=== PATIENT | female | born 1980 | race Caucasian/White ===

== ENCOUNTER 2023-01-25 10:52 | Outpatient (OUT) | payer MEDICARE, MEDICAID, SELFPAY ==
[2023-01-25 11:29] LABS: Basophils Percent Auto 0.4 % (0.2-2.0); Eosinophils Absolute Auto 0.2 10^3/uL (0.0-0.7); Eosinophils Percent Auto 2.3 % (0.9-7.0); Hematocrit 39.2 % (36.0-48.0); Hemoglobin 12.6 g/dL (12.0-16.0); Immature Granulocytes Abs Auto 0.02 10^3/uL (0.00-0.03); Immature Granulocytes Pct Auto 0.3 % (0.0-0.5); Lymphocytes Absolute Auto 1.5 10^3/uL (1.2-3.8); Lymphocytes Percent Auto 19.2 % (20.5-60.0); Mean Corpuscular HGB Conc 32.1 g/dL (29.9-35.2); Mean Corpuscular Hemoglobin 25.3 pg (26.7-34.0); Mean Corpuscular Volume 78.6 fL (81.0-99.0); Mean Platelet Volume 10.9 fL (9.5-13.5); Monocytes Absolute Auto 0.4 10^3/uL (0.3-0.8); Monocytes Percent Auto 4.7 % (1.7-12.0); Neutrophils Absolute Auto 5.8 10^3/uL (1.4-6.5); Neutrophils Percent Auto 73.1 % (43.0-75.0); Platelet Count 315 10^3/uL (150-450); Red Blood Count 4.99 10^6/uL (4.20-5.40); Red Cell Distribution Width 14.9 % (11.0-15.0); White Blood Count 7.9 10^3/uL (4.0-11.0)
[2023-01-25 11:38] LABS: Estimated Average Glucose 120 mg/dL; Glycohemoglobin A1C 5.8 % (4.5-6.2)
[2023-01-25 12:06] LABS: Alanine Aminotransferase 39 U/L (14-59); Albumin Globulin Ratio 0.9; Albumin Level 3.7 g/dL (3.4-5.0); Alkaline Phosphatase 119 U/L (46-116); Anion Gap 12.6; Aspartate Amino Transferase 31 U/L (15-37); BUN Creatinine Ratio 11.6; Bilirubin Total 0.2 mg/dL (0.2-1.0); Calcium 9.5 mg/dL (8.5-10.1); Carbon Dioxide 25.5 mmol/L (21.0-32.0); Chloride 102 mmol/L (98-107); Estimated GFR (African America >60 (>=60); Estimated GFR (Non-African Ame >60 (>=60); Globulin 4.3 g/dL; Glucose 117 mg/dL (74-106); Potassium 4.1 mmol/L (3.5-5.1); Sodium 136 mmol/L (136-145)
[2023-01-25 12:17] LABS: Free T3 3.46 pg/mL (2.18-3.98); Thyroid Stimulating Hormone 0.008 uIU/mL (0.358-3.740)
== END 2023-01-25 10:53 | disposition home or self-care (01) ==
LOC: LAB 10:56
PROVIDERS: PCP Family Medicine; Visit Provider Family Medicine
DX: R53.83 Other fatigue (principal)
CPT/HCPCS: 36415; 80053; 83036; 84436; 84443; 84481; 85025

== ENCOUNTER 2023-02-16 15:53 | Outpatient (RCR) | payer MEDICARE, MEDICAID, SELFPAY | END 2023-03-09 12:40 | disposition home or self-care (01) | LOC: PT 15:53 | PROVIDERS: PCP Family Medicine; Visit Provider Student in an Organized Health Care Education/Training Program | DX: M54.50 Low back pain, unspecified (principal); M79.669 Pain in unspecified lower leg | CPT/HCPCS: 97110; 97113; 97162 ==

== ENCOUNTER 2023-03-01 13:07 | Outpatient (OUT) | payer MEDICARE, MEDICAID, SELFPAY ==
[2023-03-01 14:37] LABS: Free T3 2.98 pg/mL (2.18-3.98); Thyroid Stimulating Hormone 0.019 uIU/mL (0.358-3.740)
== END 2023-03-01 13:08 | disposition home or self-care (01) ==
LOC: LAB 13:11
PROVIDERS: PCP Family Medicine; Visit Provider Family Medicine
DX: E03.9 Hypothyroidism, unspecified (principal)
CPT/HCPCS: 36415; 84436; 84443; 84481

== ENCOUNTER 2023-08-08 09:17 | Outpatient (OUT) | payer MEDICARE, MEDICAID, SELFPAY ==
[2023-08-08 09:55] LABS: Estimated Average Glucose 117 mg/dL; Glycohemoglobin A1C 5.7 % (4.5-6.2)
[2023-08-08 10:10] LABS: Alanine Aminotransferase 59 U/L (14-59); Albumin Globulin Ratio 0.8; Albumin Level 3.4 g/dL (3.4-5.0); Alkaline Phosphatase 120 U/L (46-116); Anion Gap 16.4; Aspartate Amino Transferase 34 U/L (15-37); BUN Creatinine Ratio 17.1; Bilirubin Total 0.3 mg/dL (0.2-1.0); Calcium 9.1 mg/dL (8.5-10.1); Carbon Dioxide 24.1 mmol/L (21.0-32.0); Chloride 103 mmol/L (98-107); Estimated GFR (African America >60 (>=60); Estimated GFR (Non-African Ame >60 (>=60); Free T3 1.94 pg/mL (2.18-3.98); Globulin 4.2 g/dL; Glucose 123 mg/dL (74-106); Potassium 3.5 mmol/L (3.5-5.1); Sodium 140 mmol/L (136-145); Thyroid Stimulating Hormone <0.007 uIU/mL (0.358-3.740); Total Protein 7.6 g/dL (6.4-8.2)
[2023-08-08 10:19] LABS: Basophils Percent Auto 0.5 % (0.2-2.0); Eosinophils Absolute Auto 0.1 10^3/uL (0.0-0.7); Eosinophils Percent Auto 1.5 % (0.9-7.0); Hematocrit 40.9 % (36.0-48.0); Immature Granulocytes Abs Auto 0.02 10^3/uL (0.00-0.03); Immature Granulocytes Pct Auto 0.2 % (0.0-0.5); Lymphocytes Percent Auto 24.5 % (20.5-60.0); Mean Corpuscular HGB Conc 31.8 g/dL (29.9-35.2); Mean Corpuscular Hemoglobin 25.7 pg (26.7-34.0); Mean Platelet Volume 10.8 fL (9.5-13.5); Monocytes Absolute Auto 0.5 10^3/uL (0.3-0.8); Monocytes Percent Auto 5.5 % (1.7-12.0); Neutrophils Absolute Auto 5.6 10^3/uL (1.4-6.5); Neutrophils Percent Auto 67.8 % (43.0-75.0); Platelet Count 311 10^3/uL (150-450); Red Blood Count 5.05 10^6/uL (4.20-5.40); Red Cell Distribution Width 15.5 % (11.0-15.0); White Blood Count 8.2 10^3/uL (4.0-11.0)
== END 2023-08-08 09:18 | disposition home or self-care (01) ==
LOC: LAB 09:18
PROVIDERS: PCP Family Medicine; Visit Provider Family Medicine
DX: N95.1 Menopausal and female climacteric states (principal); R73.09 Other abnormal glucose; E55.9 Vitamin D deficiency, unspecified
CPT/HCPCS: 36415; 80053; 82306; 83036; 84436; 84443; 84481; 85025

== ENCOUNTER 2023-09-25 12:22 | Outpatient (OUT) | payer MEDICARE, MEDICAID, SELFPAY ==
[2023-09-25 14:41] LABS: Free T3 2.09 pg/mL (2.18-3.98); Thyroid Stimulating Hormone 0.008 uIU/mL (0.358-3.740)
== END 2023-09-25 12:23 | disposition home or self-care (01) ==
LOC: LAB 12:23
PROVIDERS: PCP Family Medicine; Visit Provider Family Medicine
DX: B37.0 Candidal stomatitis (principal); E03.9 Hypothyroidism, unspecified
CPT/HCPCS: 36415; 84436; 84443; 84481

== ENCOUNTER 2024-01-14 10:48 | Outpatient (OUT) | payer MEDICARE, MEDICAID, SELFPAY ==
--- NOTE | 2024-01-14 | XR_ITS ---
The [address] [address] Patient Name: SAIRA ALEXIS MRN: [id number] date: 1980 Sex: F Assigned Patient Location: Current Patient Location: Accession/Order Number: [id number] Exam Date: 01/14/2024 10:48 Report Date: 01/14/2024 12:00 At the request of: ALIZE CHICAS Procedure: XR wrist RT min 3V PROCEDURE: XR wrist RT min 3V COMPARISON: None. HISTORY: RIGHT WRIST PAIN FINDINGS: BONES:No fracture, acute abnormality, or significant arthropathy. SOFT TISSUES:Negative. No visible soft tissue swelling. EFFUSION:None visible. OTHER: Negative. XR/XR wrist RT min 3V IMPRESSION: No acute radiographic abnormality Electronically authenticated by: JUAN PRATER Date: 01/14/2024 12:00
--- OUTSIDE RECORDS SUMMARY | 2024-01-14 11:10 | XMS_ITS | CCD ---
Author Organization [facility] Care Team Providers Care Executive Officer Name Role Phone Sandra Amaya Primary Care Physician Irina Soler Unavailable MEHREEN ., DR FLORES Consulting Unavailable HOY ., DR FLORES Primary Care Unavailable HOY ., DR FLORES Attending Unavailable HOY ., DR FLORES Admitting Unavailable LAKSHMIPATHY ., JOSH Consulting Anju vailable HOY ., DR FLORES Primary Care Unavailable LAKSHMIPATHY ., JOSH Attending Anju vailable LAKSHMIPATHY ., JOSH Admitting Anju vailable HOY ., DR FLORES Consulting Unavailable HOY ., DR FLORES Primary Care Unavailable HOY ., DR FLORES Attending Unavailable HOY ., DR FLORES Admitting Unavailable ZIEBER, DR ALIZE Fajardo Consulting Unavailable HOY ., DR FLORES Consulting Unavailable HOY ., DR FLORES Primary Care Unavailable HOY ., DR FLORES Attending Unavailable HOY ., DR FLORES Admitting Unavailable HOY ., DR FLORES Consulting Unavailable HOY ., DR FLORES Primary Care Unavailable HOY ., DR FLORES Attending Unavailable HOY ., DR FLORES Admitting Unavailable HOY ., DR FLORES Primary Care Unavailable HOY ., DR FLORES Attending Unavailable HOY ., DR FLORES Admitting Unavailable HOY ., DR FLORES Consulting Unavailable HOY ., DR FLORES Primary Care Unavailable HOY ., DR FLORES Attending Unavailable HOY ., DR FLORES Admitting Unavailable WEST, DR JUAN Simms Consulting Unavailable HOY ., DR FLORES Consulting Unavailable HOY ., DR FLORES Primary Care Unavailable HOY ., DR FLORES Attending Unavailable HOY ., DR FLORES Admitting Unavailable ESQUIVELEMELY Esquivel Consulting Unavailable HOY ., DR FLORES Consulting Unavailable HOY ., DR FLORES Primary Care Unavailable HOY ., DR FLORES Attending Unavailable HOY ., DR FLORES Admitting Unavailable HOY ., DR FLORES Consulting Unavailable HOY ., DR FLORES Primary Care Unavailable HOY ., DR FLORES Attending Unavailable HOY ., DR FLORES Admitting Unavailable LAKSHMIPATHY ., JOSH Consulting Anju vailable HOY ., DR FLORES Primary Care Unavailable LAKSHMIPATHY ., JOSH Attending Anju vailable LAKSHMIPATHY ., JOSH Admitting Anju vailable FINE ., DR HARPER Solano Consulting Unavailable HOY ., DR FLORES Primary Care Unavailable FINE ., DR HARPER Solano Attending Unavailable FINE ., DR HARPER Solano Admitting Unavailable HOY ., DR FLORES Primary Care Unavailable FINE ., DR HARPER Solano Attending Unavailable FINE ., DR HARPER Solano Admitting Unavailable LAKSHMIPATHY ., JOSH Consulting Anju vailable HOY ., DR FLORES Primary Care Unavailable LAKSHMIPATHY ., JOSH Attending Anju vailable LAKSHMIPATHY ., YANIRAATH Admitting Anju vailable GRECHNY ., DORCAS FERNANDEZ Consulting Unavailabl natividda JORDAN ., COOKIE Attending Unavailable JULIAN ., COOKIE Admitting Unavailable HOY ., DR FLORES Primary Care Unavailable HOY ., DR FLORES Primary Care Unavailable HOY ., DR FLORES Attending Unavailable HOY ., DR FLORES Admitting Unavailable HOY ., DR FLORES Consulting Unavailable HOY ., DR FLORES Primary Care Unavailable HOY ., DR FLORES Attending Unavailable HOY ., DR FLORES Admitting Unavailable SERENITY, DR ALIZE Fajardo Consulting Unavailable HAY ., DR ELLIS Attending Unavailable HAY ., DR ELLIS Admitting Unavailable HOY ., DR FLORES Primary Care Unavailable JV ., DR ELLIS Consulting Unavailable Bertin Velez Unavailable Medications Current Medications Medication Drug Class(es) Dates Sig (Normalized) Sig (Original) amphetamine aspartate 7.5 mg / amphetamine sulfate 7.5 mg / dextroamphetamine saccharate 7.5 mg / dextroamphetamine sulfate 7.5 mg oral tablet (20 sources) Central Nervous System Stimulant Start: 05-30-2018 Adderall 30 MG 1 in am and 0.5 -1 later in the day Orally Twice daily for 30 day(s) May, Active buPROPion (10 sources) Aminoketone Wellbutrin Activ e cyclobenzaprine hydrochloride 10 mg oral tablet (11 sources) Muscle Relaxant Start: 03-14-2022 cyclobenzaprine 10 mg Tab See Instructions, 1 tab in AM, 2 tabs at HS, Refills(s) 0 Start Date: 03/14/22 Status: Ordered Flexeril Active FLUoxetine 40 mg oral capsule (10 sources) Serotonin Reuptake Inhibitor take 1 capsule by mouth every twenty-four hours PROzac 40 MG 1 capsule Orally Once a day Active levothyroxine sodium 0.125 mg oral tablet (20 sources) l-Thyroxine Start: 03-14-20 take 1 tablet by mouth once daily levothyroxine 125 mcg (0.125 mg) Tab 125 mcg = 1 tab(s), Oral, Daily, Refills(s) 0 Start Date: 03/14/22 Status: Ordered Start: 12-04-2019 take 1 tablet by gino th once daily in the morning Synthroid 100 MCG 1 tablet in the morning on an empty stomach Orally Once a day for 30 day(s) November, Active Start: 12-04-2019 take 1 tablet by gino th once daily in the morning Synthroid 100 MCG 1 tablet in the morning on an empty stomach Orally Once a day for 30 day(s) November, Active liothyronine sodium 0.025 mg oral tablet (10 sources) l-Triiodothyronine take 1 tablet by gino th every twenty-four hours Cytomel 25 MCG 1 tablet on an empty stomach Orally Once a day Active take 1 tablet by gino th every twenty-four hours Cytomel 25 MCG 1 tablet on an empty stomach Orally Once a day Active omeprazole 40 mg delayed release oral capsule (10 sources) Proton Pump Inhibitor take 1 capsule by mouth once daily Omeprazole 40 MG 1 capsule 30 minutes before morning meal Orally Once a day Active pantoprazole 40 mg delayed release oral tablet (1 source) Proton Pump Inhibitor Start: 2 take 1 tablet by mouth once daily Pantoprazole [address] Tab 40 mg = 1 tab(s), Oral, Daily, Refills(s) 0 Start Date: 03/14/22 Status: Ordered pregabalin 300 mg oral capsule (12 sources) Start: 2 take 1 capsule by mouth twice daily pregabalin 300 mg Cap 300 mg = 1 cap(s), Oral, BID, Refills(s) 0 Start Date: 03/14/22 Status: Ordered {20 (nirmatrelvir 150 MG Oral Tablet) / 10 (ritonavir 100 MG Oral Tablet) } Pack [Paxlovid 5-Day] (1 source) Start: 2 Paxlovid 150 mg-100 mg oral tablet See Instructions, Refill(s) 0 Start Date: 03/14/22 Status: Ordered Completed/Discontinued Medications Medication Drug Class(es) Dates Sig (Normalized) Sig (Original) Cephalexin (11 sources) Cephalosporin Antibacterial Cephalexin Not-Taking/PRN Cephalexin Not-T aking diclofenac sodium 75 mg delayed release oral tablet (11 sources) Nonsteroidal Anti-inflammatory Drug take 1 tablet by mouth every twenty-four hours Diclofenac Sodium 75 mg 1 tablet with food or milk Orally once daily Not-Taking/PRN estrogens, conjugated (senior living) 0.3 mg oral tablet (11 sources) Estrogen Premarin 0.3 MG 1 tablet Orally Daily for Three Weeks, 1 Week off not sure of dose Not-Taking/PRN Sulfamethoxazole / Trimethoprim (11 sources) Dihydrofolate Reductase Inhibitor Antibacterial, Sulfonamide Antimicrobial Bactrim Not-Taking/PRN Bactrim Not-Taki ng Problems Active Problems Problem Classification Problem Date Documented Da te Episodic/Chronic Acute and chronic tonsillitis (11 sources) Large tonsils; Translations: [Hypertrophy of tonsils] Chronic Alcohol-related disorders (20 sources) Alcohol abuse; Translations: [Alcohol abuse, uncomplicated] Chronic Asthma (5 sources) Asthma; Translations: [Unspecified asthma, uncomplicated] Onset: 2 03-14-2022 Chronic Cardiac dysrhythmias (1 source) Tachycardia 03-14-2022 Episodic Disorders of lipid metabolism (1 source) Hyperlipidemia, unspecified; Translations: [HYPERLIPIDEMIA UNSPECIFIED] Onset: 2 Chronic Endometriosis (1 source) Endometriosis (clinical) 03-14-2022 Chronic Esophageal disorders (6 sources) Gastroesophageal reflux disease; Translations: [Gastro-esophageal reflux disease without esophagitis] Onset: 2 03-14-2022 Chronic Miscellaneous mental health disorders (12 sources) Psychophysiologic insomnia; Translations: [Disorders of initiating and maintaining sleep] 08-23-2022 Chronic Mood disorders (12 sources) Bipolar I disorder; Translations: [Bipolar disorder, unspecified] 03-14-2022 Chronic Other acquired deformities (10 sources) Lumbar spondylolisthesis; Translations: [Spondylolisthesis, lumbar region] Episodic Other aftercare (5 sources) Other residential (current) drug therapy; Translations: [OTH ORDNANCE OFFICER CURRENT DRUG THERAPY] Onset: 2 Episodic Other connective tissue disease (12 sources) Fibromyalgia; Translations: [Fibromyalgia] 03-14-2022 Episodic Other connective tissue disease (1 source) Other muscle spasm; Translations: [OTHER MUSCLE SPASM] Onset: 3 Episodic Other connective tissue disease (10 sources) Enthesopathy of hip region; Translations: [Trochanteric bursitis, right hip] Episodic Other connective tissue disease (5 sources) Trochanteric bursitis, unspecified hip; Translations: [Enthesopathy of hip region] Episodic Other connective tissue disease (5 sources) Trochanteric bursitis; Translations: [Trochanteric bursitis, unspecified hip] Episodic Other connective tissue disease (1 source) Bursitis of hip; Translations: [Trochanteric bursitis, unspecified hip] 11-02-2023 Episodic Other gastrointestinal disorders (1 source) Irritable bowel syndrome 03-14-2022 Chronic Other inflammatory condition of skin (1 source) Rosacea 03-14-2022 Chronic Other nervous system disorders (1 source) Carpal tunnel syndrome 03-14-2022 Chronic Other nervous system disorders (1 source) Cataplexy and narcolepsy 03-14-2022 Chronic Other nervous system disorders (11 sources) Cataplexy; 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 Other nervous system disorders (11 sources) Sleep-wake schedule disorder, delayed phase type; Translations: [Circadian rhythm sleep disorder, 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 Other nervous system disorders (7 sources) Other chronic pain; Translations: [Other chronic pain] Onset: 3 Chronic Other nervous system disorders (6 sources) Chronic pain; Translations: [Other chronic pain] 11-02-2023 Chronic Other skin disorders (1 source) Acne vulgaris 03-14-2022 Episodic Other skin disorders (1 source) Inflammatory dermatosis 03-14-2022 Episodic Otitis media and related conditions (1 source) Unspecified nonsuppurative otitis media, unspecified ear; Translations: [UNS NONSUPPURATIVE OM UNS EAR] Onset: 3 Episodic Ovarian cyst (1 source) Cyst of ovary 03-14-2022 Episodic Residual codes; unclassified (11 sources) Hypersomnia; 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 Residual codes; unclassified (11 sources) Daytime somnolence; Translations: [Other hypersomnia] Chronic Spondylosis; intervertebral disc disorders; other back problems (20 sources) Spondylosis without myelopathy or radiculopathy, lumbosacral region; Translations: [Other intervertebral disc displacement, lumbar region] Onset: 3 Chronic Spondylosis; intervertebral disc disorders; other back problems (2 sources) Cervical radiculopathy; Translations: [Low back pain] 03-14-2022 Episodic Substance-related disorders (6 sources) Smoker; Translations: [Nicotine dependence, cigarettes, uncomplicated] Onset: 2 03-14-2022 Chronic Comment on above: Added secondary to d ocumentation in Social History. Substance-related disorders (1 source) Drug-induced sleep disorder 03-14-2022 Episodic Thyroid disorders (20 sources) Graves' disease; Translations: [Acquired hypothyroidism] Onset: 2 03-14-2022 Chronic Unclassified (1 source) Sebaceous cyst of skin 03-14-2022 Unclassified (3 sources) LOW BACK PAIN, UNSPECIFIED; Translations: [LOW BACK PAIN, UNSPECIFIED] Onset: 3 Unclassified (1 source) CONTACT W/AND (SUSP) EXPOS COVID-19; Translations: [CONTACT W/AND (SUSP) EXPOS COVID-19] Onset: 2 Past or Other Problems Problem Classification Problem Date Documented Da te Episodic/Chronic Diabetes mellitus without complication (1 source) Other abnormal glucose; Translations: [OTHER ABNORMAL GLUCOSE] Onset: 05-21-2022 Episodic Lymphadenitis (1 source) Localized enlarged lymph nodes; Translations: [LOCALIZED ENLARGED LYMPH NODES] Onset: 04-17-2022 Episodic Malaise and fatigue (5 sources) Other fatigue; Translations: [OTHER FATIGUE] Onset: 03-14-2022 Episodic Nonspecific chest pain (4 sources) Chest pain, unspecified; Translations: [CHEST PAIN UNSPECIFIED] Onset: 05-09-2022 Episodic Other connective tissue disease (1 source) Fibromyalgia; Translations: [FIBROMYALGIA] Onset: 05-11-2022 Episodic Pleurisy; pneumothorax; pulmonary collapse (1 source) Pleurisy; Translations: [PLEURISY] Onset: 05-11-2022 Episodic Skin and subcutaneous tissue infections (4 sources) Cutaneous abscess of left axilla; Translations: [CUTANEOUS ABSCESS OF LEFT AXILLA] Onset: 04-14-2022 Episodic Unclassified (1 source) LOW BACK PAIN, UNSPECIFIED; Translations: [LOW BACK PAIN, UNSPECIFIED] Onset: 11-09-2022 Unclassified (2 sources) Other low back pain M54.59 Results Test Name Value Interpretation Reference Range Facility COMPLIANCE DRUG SCREENon PDF . [facility] Comment on above: Performed By: #### D SDOALC #### [facility] [address] [address] [address] Kareem Urbina Summary FINAL [facility] Comment on above: Result Comment: === TOXASSURE COMP DRUG ANALYSIS,UR === Test Result Flag Units Drug Present and Declared for Prescription Verification Pregabalin PRESENT EXPECTED Cyclobenzaprine PRESENT EXPECTED Desmethylcyclobenzaprine PRESENT EXPECTED Desmethylcyclobenzaprine is an expected metabolite of cyclobenzaprine. Bupropion PRESENT EXPECTED Hydroxybupropion PRESENT EXPECTED Hydroxybupropion is an expected metabolite of bupropion. Fluoxetine PRESENT EXPECTED Norfluoxetine PRESENT EXPECTED Norfluoxetine is an expected metabolite of fluoxetine. Drug Present not Declared for Prescription Verification Carboxy-THC >253 UNEXPECTED ng/mg creat Carboxy-THC is a metabolite of tetrahydrocannabinol (THC). Source of THC is most commonly herbal marijuana or marijuana-based products, but THC is also present in a scheduled prescription medication. Trace amounts of THC can be present in hemp and cannabidiol (CBD) products. This test is not intended to distinguish between [id number], the predominant form of THC in most herbal or marijuana-based products, and kbeix-[id number]. === Test Result Flag Units Ref Range Creatinine 396 mg/dL >=20 === Declared Medications: The flagging and interpretation on this report are based on the following declared medications. Unexpected results may arise from inaccuracies in the declared medications. Note: The testing scope of this panel includes these medications: Bupropion (Wellbutrin) Cyclobenzaprine Fluoxetine (Prozac) Pregabalin (Lyrica) Note: The testing scope of this panel does not include following reported medications: Levothyroxine (Synthroid) LIOTHYRONINE (Cytomel) Omeprazole === For clinical consultation, please call . === Performed By: #### D SDOALC #### [facility] [address] [place] [address] Dr. Kareem Urbina URIC ACID RAND URINEon 09-21 Uric Acid, Urine 98.4 mg/dL Normal Not Estab. [facility] Comment on above: Performed By: #### T 4LC, HPYLLC #### [facility] [address] [place] [address] Dr. Kareem Urbina DRUG SCREEN RAPID (URINE)on 09-20-2022 AMP Negative Normal NEGATIVE [facility] Comment on above: Performed By: #### T 4LC, HPYLLC #### [facility] [address] [place] [address] Dr. Kareem Urbina BAR Negative Normal NEGATIVE [facility] Comment on above: Performed By: #### T 4LC, HPYLLC #### [facility] [address] [place] [address] Dr. Kareem Urbina BUP Negative Normal NEGATIVE [facility] Comment on above: Performed By: #### T 4LC, HPYLLC #### [facility] [address] [place] [address] Dr. Kareem Urbina BZO Positive Abnormal NEGATIVE [facility] Comment on above: Performed By: #### T 4LC, HPYLLC #### [facility] [address] [place] [address] Dr. Kareem Urbina LISETTE Negative Normal NEGATIVE [facility] Comment on above: Performed By: #### T 4LC, HPYLLC #### [facility] [address] [place] [address] Dr. Kareem Urbina CUT-OFFS SEE BELOW Normal [facility] Comment on above: Result Comment: AMP (Amphetamine): 500ng/mL, BAR (Barbituates): 200 ng/mL, BZO (Benzodiazepines): 150 ng/mL, BUP (Buprenorphine): 10 ng/mL, LISETTE (Cocaine): 150 ng/mL, mAMP (Methamphetamine): 500 ng/mL, MTD (Methadone): 200 ng/mL, OPI (Opiates): 100 ng/mL, OXY (Oxycodone): 100 ng/mL, PCP (Phencyclidine): 25 ng/mL, PPX (Propoxyphene): 300 ng/mL, THC (Cannabinoids): 50 ng/mL, TCA (Trycyclic Antidepressants): 300 ng/mL Performed By: #### T 4LC, HPYLLC #### [facility] [address] [place] [address] Dr. Kareem Urbina DRUG CUT HEADER DRUG CLASS TEST SYST EM CUT-OFF CONCENTRATIONS ARE FOLLOWS: Normal [facility] Comment on above: Performed By: #### T 4LC, HPYLLC #### [facility] [address] [address] [address] Kareem Urbina mAMP Negative Normal NEGATIVE [facility] Comment on above: Performed By: #### T 4LC, HPYLLC #### [facility] [address] [place] [address] Dr. Kareem Urbina MTD Negative Normal NEGATIVE [facility] Comment on above: Performed By: #### T 4LC, HPYLLC #### [facility] [address] [place] [address] Dr. Kareem Urbina OPI Negative Normal NEGATIVE [facility] Comment on above: Performed By: #### T 4LC, HPYLLC #### [facility] [address] [place] [address] Dr. Kareem Urbina OXY Negative Normal NEGATIVE [facility] Comment on above: Performed By: #### T 4LC, HPYLLC #### [facility] [address] [place] [address] Dr. Kareem Urbina PCP Negative Normal NEGATIVE [facility] Comment on above: Performed By: #### T 4LC, HPYLLC #### [facility] [address] [place] [address] Dr. Kareem Urbina PPX Negative Normal NEGATIVE [facility] Comment on above: Performed By: #### T 4LC, HPYLLC #### [facility] [address] [place] [address] Dr. Kareem Urbina TCA Positive Abnormal NEGATIVE [facility] Comment on above: Performed By: #### T 4LC, HPYLLC #### [facility] [address] [address] [address] Kareem Urbina THC Positive Abnormal NEGATIVE [facility] Comment on above: Performed By: #### T 4LC, HPYLLC #### [facility] [address] [place] [address] Dr. Kareem Urbina CBC AUTO DIFFon 08-19-2022 BASO # 0.1 103/ul Normal 0.0-0.1 [facility] Comment on above: Performed By: #### T 4LC, HPYLLC #### [facility] [address] [place] [address] Dr. Kareem Urbina Basophils/100 WBC (Bld) 0.6 % Normal 0.2-2.0 [facility] Comment on above: Performed By: #### T 4LC, HPYLLC #### [facility] [address] [place] [address] Dr. Kareem Urbina EO # 0.2 103/ul Normal 0.0-0.7 [facility] Comment on above: Performed By: #### T 4LC, HPYLLC #### [facility] [address] [place] [address] Dr. Kareem Urbina Eosinophils/100 WBC (Bld) 2.1 % Normal 0.9-7.0 [facility] Comment on above: Performed By: #### T 4LC, HPYLLC #### [facility] [address] [place] [address] Dr. Kareem Urbina Erythrocyte distribution width (RBC) [Ratio] 15.8 % Critically high 11.0-15.0 [facility] Comment on above: Performed By: #### T 4LC, HPYLLC #### [facility] [address] [place] [address] Dr. Kareem Urbina Hematocrit (Bld) [Volume fraction] 36.3 % Normal 36.0-48.0 [facility] Comment on above: Performed By: #### T 4LC, HPYLLC #### [facility] [address] [place] [address] Dr. Kareem Urbina Hemoglobin (Bld) [Mass/Vol] 12.1 g/dL Normal 12.0-16.0 [facility] Comment on above: Performed By: #### T 4LC, HPYLLC #### [facility] [address] [place] [address] Dr. Kareem Urbina IG # 0.05 10e3/ul Critically high 0.00-0.03 [facility] Comment on above: Performed By: #### T 4LC, HPYLLC #### [facility] [address] [place] [address] Dr. Kareem Urbina IG % 0.5 % Normal 0.0-0.5 [facility] Comment on above: Performed By: #### T 4LC, HPYLLC #### [facility] [address] [place] [address] Dr. Kareem Urbina LYMPH # 2.3 103/ul Normal 1.2-3.8 [facility] Comment on above: Performed By: #### T 4LC, HPYLLC #### [facility] [address] [place] [address] Dr. Kareem Urbina Lymphocytes/100 WBC (Bld) 24.0 % Normal 20.5-60.0 [facility] Comment on above: Performed By: #### T 4LC, HPYLLC #### [facility] [address] [place] [address] Dr. Kareem Urbina MANUAL DIFF REQ NO Normal [facility] Comment on above: Performed By: #### T 4LC, HPYLLC #### [facility] [address] [place] [address] Dr. Kareem Urbina MCH (RBC) [Entitic mass] 24.4 pg Critically low 26.7-34.0 [facility] Comment on above: Performed By: #### T 4LC, HPYLLC #### [facility] [address] [place] [address] Dr. Kareem Urbina MCHC (RBC) [Mass/Vol] 33.3 g/dL Normal 29.9-35.2 [facility] Comment on above: Performed By: #### T 4LC, HPYLLC #### [facility] [address] [place] [address] Dr. Kareem Urbina MCV (RBC) [Entitic vol] 73.3 fL Critically low 81.0-99.0 [facility] Comment on above: Performed By: #### T 4LC, HPYLLC #### [facility] [address] [place] [address] Dr. Kareem Urbina MONO # 0.4 103/ul Normal 0.3-0.8 [facility] Comment on above: Performed By: #### T 4LC, HPYLLC #### [facility] [address] [place] [address] Dr. Kareem Urbina Monocytes/100 WBC (Bld) 4.4 % Normal 1.7-12.0 [facility] Comment on above: Performed By: #### T 4LC, HPYLLC #### [facility] [address] [place] [address] Dr. Kareem Urbina NEUT # 6.7 103/ul Critically high 1.4-6.5 [facility] Comment on above: Performed By: #### T 4LC, HPYLLC #### [facility] [address] [place] [address] Dr. Kareem Urbina Neutrophils/100 WBC (Bld) 68.4 % Normal 43.0-75.0 [facility] Comment on above: Performed By: #### T 4LC, HPYLLC #### [facility] [address] [place] [address] Dr. Kareem Urbina Platelet mean volume (Bld) [Entitic vol] 9.9 fL Normal 9.5-13.5 [facility] Comment on above: Performed By: #### T 4LC, HPYLLC #### [facility] [address] [place] [address] Dr. Kareem Urbina PLT 346 103/ul Normal 150-450 [facility] Comment on above: Performed By: #### T 4LC, HPYLLC #### [facility] [address] [place] [address] Dr. Kareem Urbina RBC 4.95 106/ul Normal 4.20-5.40 [facility] Comment on above: Performed By: #### T 4LC, HPYLLC #### [facility] [address] [address] [address] Kareem Urbina WBC 9.7 103/ul Normal 4.0-11.0 [facility] Comment on above: Performed By: #### T 4LC, HPYLLC #### [facility] [address] [address] [address] Kareem Urbina FREE THYROXINE INDEX T7on FTI 3.26 Normal 1.30-4.50 [facility] Comment on above: Performed By: #### C BC #### [facility] [address] [address] [address] Kareem Urbina T3U 32.0 % Normal 30.0-39.0 [facility] Comment on above: Performed By: #### C BC #### [facility] [address] [address] [address] Kareem Urbina T4 [Mass/Vol] 10.20 ug/dL Normal 4.80-13.90 [place] [facility] Comment on above: Performed By: #### C BC #### [facility] [address] [address] [address] Kareem Urbina PROF 14(COMP METB)on 023 Albumin [Mass/Vol] 3.4 g/dL Normal 3.4-5.0 [facility] Comment on above: Performed By: #### C BC #### [facility] [address] [address] [address] Kareem Urbina Albumin/Globulin [Mass ratio] 0.8 {ratio} Normal [facility] Comment on above: Performed By: #### C BC #### [facility] [address] [address] [address] Kareem Urbina ALP [Catalytic activity/Vol] 111 U/L Normal 46-116 [facility] Comment on above: Performed By: #### C BC #### [facility] [address] [address] [address] Kareem Urbina ALT [Catalytic activity/Vol] 31 U/L Normal 14-59 [facility] Comment on above: Performed By: #### C BC #### [facility] [address] [address] [address] Kareem Urbina Anion gap [Moles/Vol] 12.3 mmol/L Normal [facility] Comment on above: Performed By: #### C BC #### [facility] [address] [address] [address] Kareem Urbina AST [Catalytic activity/Vol] 22 U/L Normal 15-37 [facility] Comment on above: Performed By: #### C BC #### [facility] [address] [address] [address] Kareem Urbina Bilirubin [Mass/Vol] 0.2 mg/dL Normal 0.2-1.0 [facility] Comment on above: Performed By: #### C BC #### [facility] [address] [address] [address] Kareem Urbina Calcium [Mass/Vol] 9.2 mg/dL Normal 8.5-10.1 [facility] Comment on above: Performed By: #### C BC #### [facility] [address] [address] [address] Kareem Urbina Chloride [Moles/Vol] 102 mmol/L Normal 98-107 [facility] Comment on above: Performed By: #### C BC #### [facility] [address] [address] [address] Kareem Urbina CO2 [Moles/Vol] 27.7 mmol/L Normal 21.0-32.0 [facility] Comment on above: Performed By: #### C BC #### [facility] [address] [address] [address] Kareem Urbina Creatinine [Mass/Vol] 0.84 mg/dL Normal 0.55-1.02 [facility] Comment on above: Performed By: #### C BC #### [facility] [address] [address] [address] Kareem Urbina EGFR-AF LATVIAN >60 Normal >=60 [facility] Comment on above: Performed By: #### C BC #### [facility] [address] [place] [address] Dr. Kareem Urbina EGFR-NON AF LATVIAN >60 Normal >=60 [facility] Comment on above: Performed By: #### C BC #### [facility] [address] [place] [address] Dr. Kareem Urbina Globulin (S) [Mass/Vol] 4.2 g/dL Normal [facility] Comment on above: Performed By: #### C BC #### [facility] [address] [place] [address] Dr. Kareem Urbina Glucose [Mass/Vol] 107 mg/dL Critically high 74-106 [facility] Comment on above: Performed By: #### C BC #### [facility] [address] [place] [address] Dr. Kareem Urbina Potassium [Moles/Vol] 4.0 mmol/L Normal 3.5-5.1 [facility] Comment on above: Performed By: #### C BC #### [facility] [address] [place] [address] Dr. Kareem Urbina Protein [Mass/Vol] 7.6 g/dL Normal 6.4-8.2 [facility] Comment on above: Performed By: #### C BC #### [facility] [address] [place] [address] Dr. Kareem Urbina Sodium [Moles/Vol] 138 mmol/L Normal 136-145 [facility] Comment on above: Performed By: #### C BC #### [facility] [address] [place] [address] Dr. Kareem Urbina Urea nitrogen [Mass/Vol] 11.0 mg/dL Normal 7.0-18.0 [facility] Comment on above: Performed By: #### C BC #### [facility] [address] [place] [address] Dr. Kareem Urbina Urea nitrogen/Creatinine [Mass ratio] 13.1 mg/mg Normal [facility] Comment on above: Performed By: #### C BC #### [facility] [address] [place] [address] Dr. Kareem Urbina TSHon 08-19-2022 TSH 0.062 uIU/mL Critically low 0.358-3.740 [facility] Comment on above: Performed By: #### C BC #### [facility] [address] [place] [address] LUNG CANCER SCREENINGon 1 08-01-2021 CT LUNG CANCER SCREENING EXAMINATION: CT LUNG CANCER SCREENING HISTORY: Tobacco dependence caused by cigarettes COMPARISON: No relevant comparison available. TECHNIQUE: Axial, Coronal, and Sagittal images were created without the administration of IV contrast material. Dose reduction techniques were achieved by using automated exposure control and/or adjustment of mA and/or kV according to patient size and/or use of iterative reconstruction technique. FINDINGS: LUNGS: No visible pulmonary disease. PLEURA: No mass, effusion, or pneumothorax. VASCULATURE: No abnormality. FELIPE: No mass or pathologic adenopathy. MEDIASTINUM: No mass or pathologic adenopathy. CARDIAC: No enlargement, pericardial thickening, or significant calcification. AORTA: No aneurysm or dissection. CHEST WALL: No mass or axillary adenopathy BONES: No bone lesion or fracture. LIMITED ABDOMEN: No suspicious findings. Limited images of the upper abdomen. OTHER: Negative. IMPRESSION: 1. Lung-RADS Category 1 Negative. No nodules and definitely benign nodules. Continue annual screening with LDCT in 12 months. Electronically authenticated by: ALIZE BENTON Date: 2022-06-01 16:24 Normal [facility] CBC AUTO DIFFon 05-17-2022 BASO # 0.0 103/ul Normal 0.0-0.1 [facility] Comment on above: Performed By: #### C BC #### [facility] [address] [place] [address] Dr. Kareem Urbina Basophils/100 WBC (Bld) 0.4 % Normal 0.2-2.0 [facility] Comment on above: Performed By: #### C BC #### [facility] [address] [place] [address] Dr. Kareem Urbina EO # 0.1 103/ul Normal 0.0-0.7 [facility] Comment on above: Performed By: #### C BC #### [facility] [address] [place] [address] Dr. Kareem Urbina Eosinophils/100 WBC (Bld) 1.2 % Normal 0.9-7.0 [facility] Comment on above: Performed By: #### C BC #### [facility] [address] [place] [address] Dr. Kareem Urbina Erythrocyte distribution width (RBC) [Ratio] 15.0 % Normal 11.0-15.0 [facility] Comment on above: Performed By: #### C BC #### [facility] [address] [place] [address] Dr. Kareem Urbina Hematocrit (Bld) [Volume fraction] 37.0 % Normal 36.0-48.0 [facility] Comment on above: Performed By: #### C BC #### [facility] [address] [place] [address] Dr. Kareem Urbina Hemoglobin (Bld) [Mass/Vol] 12.0 g/dL Normal 12.0-16.0 [facility] Comment on above: Performed By: #### C BC #### [facility] [address] [place] [address] Dr. Kareem Urbina IG # 0.03 10e3/ul Normal 0.00-0.03 [facility] Comment on above: Performed By: #### C BC #### [facility] [address] [place] [address] Dr. Kareem Urbina IG % 0.3 % Normal 0.0-0.5 [facility] Comment on above: Performed By: #### C BC #### [facility] [address] [place] [address] Dr. Kareem Urbina LYMPH # 2.3 103/ul Normal 1.2-3.8 [facility] Comment on above: Performed By: #### C BC #### [facility] [address] [place] [address] Dr. Kareem Urbina Lymphocytes/100 WBC (Bld) 20.6 % Normal 20.5-60.0 [facility] Comment on above: Performed By: #### C BC #### [facility] [address] [place] [address] Dr. Kareem Urbina MANUAL DIFF REQ NO Normal [facility] Comment on above: Performed By: #### C BC #### [facility] [address] [place] [address] Dr. Kareem Urbina MCH (RBC) [Entitic mass] 26.4 pg Critically low 26.7-34.0 [facility] Comment on above: Performed By: #### C BC #### [facility] [address] [place] [address] Dr. Kareem Urbina MCHC (RBC) [Mass/Vol] 32.4 g/dL Normal 29.9-35.2 [facility] Comment on above: Performed By: #### C BC #### [facility] [address] [place] [address] Dr. Kareem Urbina MCV (RBC) [Entitic vol] 81.5 fL Normal 81.0-99.0 [facility] Comment on above: Performed By: #### C BC #### [facility] [address] [place] [address] Dr. Kareem Urbina MONO # 0.5 103/ul Normal 0.3-0.8 [facility] Comment on above: Performed By: #### C BC #### [facility] [address] [place] [address] Dr. Kareem Urbina Monocytes/100 WBC (Bld) 4.7 % Normal 1.7-12.0 [facility] Comment on above: Performed By: #### C BC #### [facility] [address] [place] [address] Dr. Kareem Urbina NEUT # 8.1 103/ul Critically high 1.4-6.5 [facility] Comment on above: Performed By: #### C BC #### [facility] [address] [place] [address] Dr. Kareem Urbina Neutrophils/100 WBC (Bld) 72.8 % Normal 43.0-75.0 [facility] Comment on above: Performed By: #### C BC #### [facility] [address] [place] [address] Dr. Kareem Urbina Platelet mean volume (Bld) [Entitic vol] 10.5 fL Normal 9.5-13.5 [facility] Comment on above: Performed By: #### C BC #### [facility] [address] [place] [address] Dr. Kareem Urbina PLT 342 103/ul Normal 150-450 [facility] Comment on above: Performed By: #### C BC #### [facility] [address] [place] [address] Dr. Kareem Urbina RBC 4.54 106/ul Normal 4.20-5.40 [facility] Comment on above: Performed By: #### C BC #### [facility] [address] [place] [address] Dr. Kareem Urbina WBC 11.1 103/ul Critically high 4.0-11.0 [facility] Comment on above: Performed By: #### C BC #### [facility] [address] [place] [address] Dr. Kareem Urbina FREE THYROXINE INDEX T7on FTI 4.90 Critically high 1.30-4.50 [facility] Comment on above: Performed By: #### C BC #### [facility] [address] [place] [address] Dr. Kareem Urbina T3U 35.0 % Normal 30.0-39.0 [facility] Comment on above: Performed By: #### C BC #### [facility] [address] [place] [address] Dr. Kareem Urbina T4 [Mass/Vol] 14.00 ug/dL Critically high 4.80-13.90 [facility] Comment on above: Performed By: #### C BC #### [facility] [address] [place] [address] Dr. Kareem Urbina GLYCOHEMOGLOBIN A1Con 2021 ADA RECOMMENDATION SEE BELOW Normal [facility] Comment on above: Result Comment: ADA RECOMMENDED LIMIT 4.0 - 6.0 ADA THERAPEUTIC TARGET < 7.0 ACTION SUGGESTED > 7.0 Performed By: #### A 1C #### [facility] [address] [place] [address] Dr. Kareem Urbina Glucose [Mass/Vol] 117 mg/dL Normal [facility] Comment on above: Performed By: #### A 1C #### [facility] [address] [place] [address] Dr. Kareem Urbina HbA1c (Bld) [Mass fraction] 5.7 % Normal 4.5-6.2 [facility] Comment on above: Performed By: #### A 1C #### [facility] [address] [place] [address] Dr. Kareem Urbina LIPID PROFILEon 05-17-2022 CHOL-HDL RATIO NORM SEE BELOW Normal [facility] Comment on above: Result Comment: 3.3 - 4.4 LOW RISK 4.4 - 7.1 AVERAGE RISK 7.1 - 11.0 MODERATE RISK >11.0 HIGH RISK Performed By: #### C MP, T7, LIPID, TSH #### [facility] [address] [place] [address] Dr. Kareem Urbina Cholesterol [Mass/Vol] 243 mg/dL Critically high <=200 [facility] Comment on above: Performed By: #### C MP, T7, LIPID, TSH #### [facility] [address] [place] [address] Dr. Kareem Urbina Cholesterol in HDL [Mass/Vol] 64 mg/dL Critically high 40-60 [facility] Comment on above: Performed By: #### C MP, T7, LIPID, TSH #### [facility] [address] [place] [address] Dr. Kareem Urbina Cholesterol in LDL [Mass/Vol] 145.8 mg/dL Normal [facility] Comment on above: Performed By: #### C MP, T7, LIPID, TSH #### [facility] [address] [place] [address] Dr. Kareem Urbina Cholesterol.total/Ch olesterol in HDL [Mass ratio] 3.8 {ratio} Normal [facility] Comment on above: Performed By: #### C MP, T7, LIPID, TSH #### [facility] [address] [place] [address] Dr. Kareem Urbina HDL NORMAL > or = 60 mg/dl - LO W CARDIOVASCULAR RISK <40 mg/dl - HIGH CARDIOVASCULAR RISK Normal [facility] Comment on above: Performed By: #### C MP, T7, LIPID, TSH #### [facility] [address] [address] [address] Kareem Urbina LDL CALC NORMAL SEE BELOW Normal [facility] Comment on above: Result Comment: <100 mg/dl OPTIMAL 100 - 129 mg/dl NEAR OR ABOVE OPTIMAL 130 - 159 mg/dl BORDERLINE HIGH 160 - 189 mg/dl HIGH >190 mg/dl VERY HIGH Performed By: #### C MP, T7, LIPID, TSH #### [facility] [address] [address] [address] Kareem Urbina Triglyceride [Mass/Vol] 166 mg/dL Critically high <=150 [facility] Comment on above: Performed By: #### C MP, T7, LIPID, TSH #### [facility] [address] [address] [address] Kareem Urbina VLDL CALC 33.2 mg/dL Normal [facility] Comment on above: Performed By: #### C MP, T7, LIPID, TSH #### [facility] [address] [address] [address] Kareem Urbina PROF 14(COMP METB)on 022 Albumin [Mass/Vol] 3.4 g/dL Normal 3.4-5.0 [facility] Comment on above: Performed By: #### C MP, T7, LIPID, TSH #### [facility] [address] [address] [address] Kareem Urbina Albumin/Globulin [Mass ratio] 0.8 {ratio} Normal [facility] Comment on above: Performed By: #### C MP, T7, LIPID, TSH #### [facility] [address] [address] [address] Kareem Urbina ALP [Catalytic activity/Vol] 116 U/L Normal 46-116 [facility] Comment on above: Performed By: #### C MP, T7, LIPID, TSH #### [facility] [address] [place] [address] Dr. Kareem Urbina ALT [Catalytic activity/Vol] 39 U/L Normal 14-59 [facility] Comment on above: Performed By: #### C MP, T7, LIPID, TSH #### [facility] [address] [address] [address] Kareem Urbina Anion gap [Moles/Vol] 11.9 mmol/L Normal [facility] Comment on above: Performed By: #### C MP, T7, LIPID, TSH #### [facility] [address] [address] [address] Kareem Urbina AST [Catalytic activity/Vol] 24 U/L Normal 15-37 [facility] Comment on above: Performed By: #### C MP, T7, LIPID, TSH #### [facility] [address] [place] [address] Dr. Kareem Urbina Bilirubin [Mass/Vol] 0.1 mg/dL Critically low 0.2-1.0 [facility] Comment on above: Performed By: #### C MP, T7, LIPID, TSH #### [facility] [address] [address] [address] Kareem Urbina Calcium [Mass/Vol] 9.3 mg/dL Normal 8.5-10.1 [facility] Comment on above: Performed By: #### C MP, T7, LIPID, TSH #### [facility] [address] [place] [address] Dr. Kareem Urbina Chloride [Moles/Vol] 102 mmol/L Normal 98-107 [facility] Comment on above: Performed By: #### C MP, T7, LIPID, TSH #### [facility] [address] [place] [address] Dr. Kareem Urbina CO2 [Moles/Vol] 25.0 mmol/L Normal 21.0-32.0 [facility] Comment on above: Performed By: #### C MP, T7, LIPID, TSH #### [facility] [address] [address] [address] Kareem Urbina Creatinine [Mass/Vol] 0.84 mg/dL Normal 0.55-1.02 [facility] Comment on above: Performed By: #### C MP, T7, LIPID, TSH #### [facility] [address] [address] [address] Kareem Urbina EGFR-AF LATVIAN >60 Normal >=60 [facility] Comment on above: Performed By: #### C MP, T7, LIPID, TSH #### [facility] [address] [address] [address] Kareem Urbina EGFR-NON AF LATVIAN >60 Normal >=60 [facility] Comment on above: Performed By: #### C MP, T7, LIPID, TSH #### [facility] [address] [address] [address] Kareem Urbina Globulin (S) [Mass/Vol] 4.3 g/dL Normal [facility] Comment on above: Performed By: #### C MP, T7, LIPID, TSH #### [facility] [address] [place] [address] Dr. Kareem Urbina Glucose [Mass/Vol] 102 mg/dL Normal 74-106 [facility] Comment on above: Performed By: #### C MP, T7, LIPID, TSH #### [facility] [address] [address] [address] Kareem Urbina Potassium [Moles/Vol] 3.9 mmol/L Normal 3.5-5.1 [facility] Comment on above: Performed By: #### C MP, T7, LIPID, TSH #### [facility] [address] [address] [address] Kareem Urbina Protein [Mass/Vol] 7.7 g/dL Normal 6.4-8.2 [facility] Comment on above: Performed By: #### C MP, T7, LIPID, TSH #### [facility] [address] [address] [address] Kareem Urbina Sodium [Moles/Vol] 135 mmol/L Critically low 136-145 [facility] Comment on above: Performed By: #### C MP, T7, LIPID, TSH #### [facility] [address] [address] [address] Kareem Urbina Urea nitrogen [Mass/Vol] 9.0 mg/dL Normal 7.0-18.0 [facility] Comment on above: Performed By: #### C MP, T7, LIPID, TSH #### [facility] [address] [place] [address] Dr. Kareem Urbina Urea nitrogen/Creatinine [Mass ratio] 10.7 mg/mg Normal [facility] Comment on above: Performed By: #### C MP, T7, LIPID, TSH #### [facility] [address] [place] [address] Dr. Kareem Urbina TSHon 05-17-2022 TSH 0.073 uIU/mL Critically low 0.358-3.740 [facility] Comment on above: Performed By: #### C BC #### [facility] [address] [place] [address] Dr. Kareem Urbina CBC AUTO DIFFon 05-09-2022 BASO # 0.1 103/ul Normal 0.0-0.1 [facility] Comment on above: Performed By: #### C BC #### [facility] [address] [place] [address] Dr. Kareem Urbina Basophils/100 WBC (Bld) 0.5 % Normal 0.2-2.0 [facility] Comment on above: Performed By: #### C BC #### [facility] [address] [place] [address] Dr. Kareem Urbina EO # 0.2 103/ul Normal 0.0-0.7 [facility] Comment on above: Performed By: #### C BC #### [facility] [address] [place] [address] Dr. Kareem Urbina Eosinophils/100 WBC (Bld) 1.4 % Normal 0.9-7.0 [facility] Comment on above: Performed By: #### C BC #### [facility] [address] [place] [address] Dr. Kareem Urbina Erythrocyte distribution width (RBC) [Ratio] 15.2 % Critically high 11.0-15.0 [facility] Comment on above: Performed By: #### C BC #### [facility] [address] [address] [address] Kareem Urbina Hematocrit (Bld) [Volume fraction] 38.8 % Normal 36.0-48.0 [facility] Comment on above: Performed By: #### C BC #### [facility] [address] [place] [address] Dr. Kareem Urbina Hemoglobin (Bld) [Mass/Vol] 12.3 g/dL Normal 12.0-16.0 [facility] Comment on above: Performed By: #### C BC #### [facility] [address] [place] [address] Dr. Kareem Urbina IG # 0.04 10e3/ul Critically high 0.00-0.03 [facility] Comment on above: Performed By: #### C BC #### [facility] [address] [place] [address] Dr. Kareem Urbina IG % 0.4 % Normal 0.0-0.5 [facility] Comment on above: Performed By: #### C BC #### [facility] [address] [place] [address] Dr. Kareem Urbina LYMPH # 1.7 103/ul Normal 1.2-3.8 [facility] Comment on above: Performed By: #### C BC #### [facility] [address] [place] [address] Dr. Kareem Urbina Lymphocytes/100 WBC (Bld) 15.7 % Critically low 20.5-60.0 [facility] Comment on above: Performed By: #### C BC #### [facility] [address] [place] [address] Dr. Kareem Urbina MANUAL DIFF REQ NO Normal [facility] Comment on above: Performed By: #### C BC #### [facility] [address] [place] [address] Dr. Kareem Urbina MCH (RBC) [Entitic mass] 26.6 pg Critically low 26.7-34.0 [facility] Comment on above: Performed By: #### C BC #### [facility] [address] [place] [address] Dr. Kareem Urbina MCHC (RBC) [Mass/Vol] 31.7 g/dL Normal 29.9-35.2 [facility] Comment on above: Performed By: #### C BC #### [facility] [address] [address] [address] Kareem Urbina MCV (RBC) [Entitic vol] 83.8 fL Normal 81.0-99.0 [facility] Comment on above: Performed By: #### C BC #### [facility] [address] [address] [address] Kareem Urbina MONO # 0.5 103/ul Normal 0.3-0.8 [facility] Comment on above: Performed By: #### C BC #### [facility] [address] [place] [address] Dr. Kareem Urbina Monocytes/100 WBC (Bld) 4.9 % Normal 1.7-12.0 [facility] Comment on above: Performed By: #### C BC #### [facility] [address] [address] [address] Kareem Urbina NEUT # 8.6 103/ul Critically high 1.4-6.5 [facility] Comment on above: Performed By: #### C BC #### [facility] [address] [place] [address] Dr. Kareem Urbina Neutrophils/100 WBC (Bld) 77.1 % Critically high 43.0-75.0 [facility] Comment on above: Performed By: #### C BC #### [facility] [address] [address] [address] Kareem Urbina Platelet mean volume (Bld) [Entitic vol] 10.2 fL Normal 9.5-13.5 [facility] Comment on above: Performed By: #### C BC #### [facility] [address] [place] [address] Dr. Kareem Urbina PLT 328 103/ul Normal 150-450 [facility] Comment on above: Performed By: #### C BC #### [facility] [address] [address] [address] Kareem Urbina RBC 4.63 106/ul Normal 4.20-5.40 [facility] Comment on above: Performed By: #### C BC #### [facility] [address] [place] [address] Dr. Kareem Urbina WBC 11.1 103/ul Critically high 4.0-11.0 [facility] Comment on above: Performed By: #### C BC #### [facility] [address] [place] [address] Dr. Kareem Urbina FREE T3on 05-09-2022 FREE T3 4.73 pg/mlL Critically high 2.18-3.98 [facility] Comment on above: Performed By: #### C BC #### [facility] [address] [place] [address] Dr. Kareem Urbina FREE T4on 05-09-2022 Free T4 [Mass/Vol] 1.46 ng/dL Normal 0.76-1.46 [facility] Comment on above: Performed By: #### F T4 #### [facility] [address] [place] [address] Dr. Kareem Urbina PROF 14(COMP METB)on 022 Albumin [Mass/Vol] 3.4 g/dL Normal 3.4-5.0 [facility] Comment on above: Performed By: #### A 1C #### [facility] [address] [place] [address] Dr. Kareem Urbina Albumin/Globulin [Mass ratio] 0.7 {ratio} Normal [facility] Comment on above: Performed By: #### A 1C #### [facility] [address] [place] [address] Dr. Kareem Urbina ALP [Catalytic activity/Vol] 115 U/L Normal 46-116 [facility] Comment on above: Performed By: #### A 1C #### [facility] [address] [place] [address] Dr. Kareem Urbina ALT [Catalytic activity/Vol] 32 U/L Normal 14-59 [facility] Comment on above: Performed By: #### A 1C #### [facility] [address] [address] [address] Kareem Urbina Anion gap [Moles/Vol] 10.9 mmol/L Normal [facility] Comment on above: Performed By: #### A 1C #### [facility] [address] [address] [address] Kareem Urbina AST [Catalytic activity/Vol] 21 U/L Normal 15-37 [facility] Comment on above: Performed By: #### A 1C #### [facility] [address] [address] [address] Kareem Urbina Bilirubin [Mass/Vol] 0.2 mg/dL Normal 0.2-1.0 [facility] Comment on above: Performed By: #### A 1C #### [facility] [address] [place] [address] Dr. Kareem Urbina Calcium [Mass/Vol] 9.3 mg/dL Normal 8.5-10.1 [facility] Comment on above: Performed By: #### A 1C #### [facility] [address] [place] [address] Dr. Kareem Urbina Chloride [Moles/Vol] 101 mmol/L Normal 98-107 [facility] Comment on above: Performed By: #### A 1C #### [facility] [address] [address] [address] Kareem Urbina CO2 [Moles/Vol] 26.9 mmol/L Normal 21.0-32.0 [facility] Comment on above: Performed By: #### A 1C #### [facility] [address] [address] [address] Kareem Urbina Creatinine [Mass/Vol] 0.85 mg/dL Normal 0.55-1.02 [facility] Comment on above: Performed By: #### A 1C #### [facility] [address] [address] [address] Kareem Urbina EGFR-AF LATVIAN >60 Normal >=60 [facility] Comment on above: Performed By: #### A 1C #### [facility] [address] [address] [address] Kareem Urbina EGFR-NON AF LATVIAN >60 Normal >=60 [facility] Comment on above: Performed By: #### A 1C #### [facility] [address] [address] [address] Kareem Urbina Globulin (S) [Mass/Vol] 4.6 g/dL Normal [facility] Comment on above: Performed By: #### A 1C #### [facility] [address] [address] [address] Kareem Urbina Glucose [Mass/Vol] 114 mg/dL Critically high 74-106 [facility] Comment on above: Performed By: #### A 1C #### [facility] [address] [address] [address] Kareem Urbina Potassium [Moles/Vol] 3.8 mmol/L Normal 3.5-5.1 [facility] Comment on above: Performed By: #### A 1C #### [facility] [address] [place] [address] Dr. Kareem Urbina Protein [Mass/Vol] 8.0 g/dL Normal 6.4-8.2 [facility] Comment on above: Performed By: #### A 1C #### [facility] [address] [place] [address] Dr. Kareem Urbina Sodium [Moles/Vol] 135 mmol/L Critically low 136-145 [facility] Comment on above: Performed By: #### A 1C #### [facility] [address] [place] [address] Dr. Kareem Urbina Urea nitrogen [Mass/Vol] 12.0 mg/dL Normal 7.0-18.0 [facility] Comment on above: Performed By: #### A 1C #### [facility] [address] [address] [address] Kareem Urbina Urea nitrogen/Creatinine [Mass ratio] 14.1 mg/mg Normal [facility] Comment on above: Performed By: #### A 1C #### [facility] [address] [place] [address] Dr. Kareem Urbina TROPONIN, HIGH SENSITIVITYon 05-09-2022 HSTROP 6.8 pg/mL Normal 4.0-51.3 [facility] Comment on above: Result Comment: CUT- OFF POINTS HAVE BEEN ESTABLISHED BASED ON THE FOURTH UNIVERSAL DEFINITIONS OF MYOCARDIAL INFARCTION. THE UPPER REFERENCE LIMIT (URL) OF TROPONIN, DEFINED THE 99TH PERCENTILE OF cTnI DISTRIBUTION IN A REFERENCE POPULATION, HAS BEEN CONFIRMED THE DECISION THRESHOLD FOR VA DIAGNOSIS. Performed By: #### A 1C #### [facility] [address] [address] [address] Kareem Urbina TSHon 05-09-2022 TSH 0.085 uIU/mL Critically low 0.358-3.740 [facility] Comment on above: Performed By: #### A 1C #### [facility] [address] [address] [address] Kareem Urbina XR CHEST 1 Von 05-09-2022 XR CHEST 1 V EXAMINATION: XR CHES T 1 V HISTORY: CHEST PAIN, UNSPECIFIED COMPARISON: No relevant comparison available. FINDINGS: LUNGS: No significant pulmonary parenchymal abnormalities. VASCULATURE: No increased pulmonary vasculature. PLEURA: No pneumothorax, effusion, or pleural thickening. CARDIAC: No cardiomegaly or cardiac silhouette abnormality. MEDIASTINUM: No visible mass or adenopathy. BONES: No fracture or visible bone lesion. OTHER: Negative. IMPRESSION: 1. No acute cardiopulmonary process. Electronically authenticated by: ALIZE BENTON Date: 2022-05-09 12:11 Normal [facility] H PYLORI ANTIBODY IGGon 03-24 H. PYLORI IGG ABS 0.08 Index Value Normal 0.00-0.79 [facility] Comment on above: Result Comment: Nega tive <0.80 Equivocal 0.80 - 0.89 Positive >0.89 Performed By: #### T 4LC, HPYLLC #### [facility] [address] [address] [address] Kareem Urbina T4 [facility] 04-13-2022 T4 [Mass/Vol] 12.4 ug/dL Critically high 4.5-12.0 [facility] Comment on above: Performed By: #### C BC #### [facility] [address] [address] [address] Kareem Urbina FREE T3on 04-12-2022 FREE T3 4.00 pg/mlL Critically high 2.18-3.98 [facility] Comment on above: Performed By: #### T 4LC, HPYLLC #### [facility] [id number] Kareem Urbina TSHon 04-12-2022 TSH 0.416 uIU/mL Normal 0.358-3.740 [facility] Comment on above: Performed By: #### T 4LC, CARMELLAC #### [facility] [address] [place] [address] Dr. Kareem Urbina Coding Summary.on 03-21-2022 Coding Summary. CD:[id number] Gh0b Ww+PGhlYWQ+TX9DJBIxO33xl UDhtT7DI2bEEQ3QNTIVCRVHA O3BFW9csHS8TPwrE5WsbbYo SkiovBYyYP84QPw4BEE7jAdo SZuyvA0pbRFuZ6q0XeCjFX92 yL32EKvrYXSfIvR4ViVlrxjh bWFy K9eyNtSetHIyZsz+PHRhYmxl IHdpZHRoPScxMDAlJyBzdHls MI0fYa4pDPVoSBAqeLhtzCQt OiBj l5egHNOdYBrlLJ5noCivA9Ra cVT3RXYcf3h0Ai34xQK+PHRk EGQ4iQpbNLovx009PnZzv2um IDM3 xAYbTIlxSMB1N73xp1X0TMLx FQXtWFP2hYE3dF3dvZugnntd C5UueDRcVqS5SID1oNAvlE7g bGln kxmfkA4aEio+O52XJN1VOKPA CU4TVmv1H3MpGprimXC+PC90 BZBaIJ88wPSndTVtd5bkoEs2 JzEw UBYaTSN0cPdlKUxgf9HgKPFm F84hlLMqu9C4RACsuZhcrYRc GrIftON6tR4lSLggsjvtm2mk dzsn Zznte4sjgd65iM95P88pTHxs KXXmSAP1DWDaXFGmfUpsac1v bT5sYh4+IJpay1zfz1goeTu0 IjIw LQZczeWpzAnlIJY7q6RyHn97 O2CbzTkcr5McTnu6lt13vWHj u7X2jYP6GMbkPCWfyL2uRMbk ZnQ6 MCTyPxBddS63rJAiCEhnVr3y aQfceGiaEW7oZCAqukzuENKc bM8qNUFpiWNuoYocGK3wCSBj bjtm c378OmVbYER4TTYfeHGuI4Bs xG8nZbSpTEEoLNPfJ9PrcQCj MTumW514EZrpByE7KICnqjKi Y2Fs QPKvzXxhOuM6i5G3Id8Yk1Wu urjwYFK7ZRmfBUU8VkOaJaAa AgL9L5GdRvh0YDCumNbcJW0a J3Bh TUKdrqueqesbvNJ2YBLsOYVb vG15qCYvJZggUj8ny1U9b321 NVYbLXEqtR60Vr8seXzfQKCc dCBU kO3exisjz7mrvzucJwClAINx MKb2VYj4LYJovRpaIgWcPRM5 WoX8MFX4rVNfsL9ehZayefte dG9w Oyc+Z10cgQ1wEDM1ZAY0mhne MXWswxUtNM76HR04Z3PmOrqu dGFibGU+HVMfewCbaBstAY2f YmFj y4nbo9IbDWosI6ZxVGZuBOdz Ysf5QEMnASX0wLJ3qM7uMMFe OYsbd3V2bUD3J0XaisSllu1f b2xs LGWmKIftI75rgMZuy3W2SCBa gTK5SPJrgKngTfQogM96Gyh+ MTNmnSiiq9TdFyeud1txd9pl dGg9 YxByHECuvmRwgCbeZJT8v5Xx Wn91G57ePVblRYPyHMNbGPWd OQEqbAscsu9yiE0zMl9+PGNv bCB3 xZD1rK1zXAUpXzB2KYjgY554 SiAriDHmPcznw4fwq3fnqTv8 HxUoZUGrwvHzxMfdRDY4h5Gb Lz48 Y38rIUcnDMSnKDCgADXkOZNk wTdzhd3rdV2pIv4+CM0tx0jk ae85zA84hEG+ZSAoTJI9vMal PSdw TNPksU9zSStgRfN3WQCjOcPq eQ12dHTvFGvuOw9xbDnjcJsc AV1cDPNvqkmwg790LeTqm9vt IDEw sTKgVVdxLUJ7K31ti8F1HXVl MILdOZM8pHI7xP3vqHpvrmcw bGVmdDsgdmVydGljYWwtYWxp Z246 IHRvcDsnPlBhdGllbnQgTmFt IBr1M0XcSgc6XLTapTcvPY3e gEDtCUhmAd3ezNxeqOxjFN8m NTBp mmvtv795KwOto8wsWNIaqHFd NPqoFAP7Q21ns8H9EYXiPTMe VMI7eCD2sH5nuHavyfqogXPe dDsg npEasJvnPRqdQOywZ851COIg sKgkUiOyvsWgFXGyhYZ9EO67 XG41hSPqy6R6eHN2Y7CcAGQg bmct edsbsZO5DSSdABGhdB91Ue9d sJidUi3uSWIuAGP4RSUxfPHi Y0SdrZ4fUmVqTXIzDZAlO3Hk eHQt HJjmO431SAdgLmO8JHGphfSw N1FhPXWycJbxSzU5o7H1St5H W5K4AN04AF29dNNoj2F0dOJ2 J3Bh NONvkgxbswfpdGR2FAQuHCYj eJ72Rg9gmRijUg1tZUTmRFI0 AMFsdQNkP7LhnP8wWoBvTKQj MDAw A3HacBQtNAvpC356TBljWdP6 FJMknhWuX0GyVRKwpWuzJwX0 h3U8Xs9OKDc7SR46VD54aYYq c3R5 lAF1A8ZjYKMrfolblxgyoDP0 PLYsNUYigR82Xp4fdSrfKv7e MPIrSVJ8POGvqPNkG8QfaF8e OiAj WCGaPPAeA6JtcDSsBPgiY366 IArmZgD5LFVhchHvS5DpFTGt cHtbTnT8i6Z9Dg3YRPFxNJ38 IFR5 cWA0XB05VO15N6VbUjfcsAHg bGU+PHRhYmxlIHdpZHRoPScx PHLsMdLopDutZJ7iCl2kVSKn LWNv rGgpcLMeDdBln6qsOJIzLChm UV9liWvzO4PrxGO8UJAbm2h0 Bg00G87kW5WogJY+PGNvbCB3 aWR0 wT0iQrQmVoZ7VOeyL548IcFm qITsCylry9lyf0fwbZz8HuP7 XXQcnjLoiYctSZS8u5ElAy52 Y29s IHdpZHRoPSIxNSUiIHZhbGln zs6diD0aEm7+OMBtqNI8yZB6 cO0dZmWmSfL1YEnfR926XmPz cCIv Rmhlk3xpl7oykAf1NxPmYSWf lcKcgVuxFJX8n8ItNs48G4On gZxlw5DhRut6lc99tCIpy1Q5 bGU9 C1LwDTXjkyldhKJmkSyoIR5k SEWyiimnTMGfnV7lDQTcW4x1 IjUpZfX3MVbkY2OrhtV8NPGu cHQg AUoyHQW3Z13of2I7NVGwKVLe WXR0eAF0cZ3ymZgiyeoaeKLz hUdwgcAiaCsaGZunLHebZ356 IHRv sPogHSQzsY3kQYPacZFnzTcb NG0vAHEieaskOslIX8CCTEwr HMRHJS24H7LbUnp2IGVmuRze ZT0n gTMeGFimOg7iuIcznVwjHB6o GOCyuxayJSFutX6oJWRzgFOt kXbfZE0hCWSlzdnyq111DiJk MHB0 YMPpqWNhA2VqnA3tZyJiRXNv YHWgG6DtgRMfGXxwS526YVln TmO7GHDillRpZ6YpXSZrgKay OiB0 c3S7Oy6jGy9pQU5fEXm9YZ83 CR92tYCdj5H2rSQ9T5OvXMNf feapwnhrdHH0ARAzLFWkwY87 cGFk NJtqHb7es0M9k404SZGaQEHp iQ66Fz0rdYwxCBYdfPKIuV6s qpodi3avwacpTkEmRDEvDBu9 ZXh0 VTOlnTmuKnTlKDS9FiQ2XUX2 qPNhxG0ujLdvcvckyU4cUjk+ ZEVwZYPaohN2C4MjVay7MOCi dHls RU0mrRYiZEkqPn2kqKboxNtg IJ9fFUQxqcdzKFKayQ9eYOJj bNCjdOqbXB8lHBXmlrmll634 OiAx QEI0BJCegFQgO0KsmQ2tApLa VASsFVVeG5AqnSYkLKclV112 YZomWsZ7VYIlgpKjX6EzFXFd aWdu ZtH7n7E5Lz5YIE9zwFQ2U5Ae Rct7PONgxAzeBY0qrCDhSOhd Td5jcCmpdQuqCO0pUIGdaxmf YWRk xI1hWRJsjIAtfWjjGZ8aVABf zyfap696KtYyYPD1LXWniYJh V0FbtL7uOcHdEXEpIXAlC2Qb eHQt PFzrA048ITpsQiM9LIDidcTw F3AyHRUnyDegQkM7w7U7Ua4F pQZeDBIyZL99GY75ES44E4Kf Pjwv dGFibGU+PHRhYmxlIHdpZHRo PWbxNTDaVsKtvCuhBV2fIy2v EPBwBSZicGkzfIHcOmJjy2uf YXBz WRhyID2xeTzmF4QvhUI5RQIc p6f5Sx89D13rF5XbcNR+PGNv kDP5iOV1fQ2lEmRvDeN9RGmg Z249 VkLqdKKeYdexg5apd8kuaQy9 PbXpDIXxsbZrmWxrJVJ6f5Il Hj38K45cWMvsOBSfMDGjQMFe IHZh uMdoff8egC8tJv4+PGNvbCB3 zCF9uU2bYyYlLlW2FLjkG767 VmOhjOBxKhpoI01vW1PqnUP+ PHRy Uye4NRHfgCguHH1bdTTfACsp Id0dEWF5RpCrCzIwNMhvO0Sz PLIwthsuvlohtQQ5QZLjJOXo aW47 Lk3azSbwLr3uCCXgEEJ7EXUj sHRdX4ImyH2dWhYgGKJqMAKy A5IdvNMmESfpG256FXwsQeZ4 IHZl ztBnC7RbCMWtdIyoFwX7z3E6 Qa7AyOlsgPVdGM6eHwXbIMx8 D2WoLah8ZYIebMukEQ6jwKKw ZGlu Ok7pgWrclBomWZ7bYHJcmqds d023HlKdz9xzGLXhaPNnVLje UZU6G83gl6Y6IVJkMGQgTBR0 dGV4 uJ6kjTiphhnjnPBmlPbneaMq pWmvXFoqPDqyA309QOYubVoc QjNNIcq7O7NwKmy9REEnaEve ZT0n eFOhTIuvGg0swAqhzIspPO2u ZXDwhukcb865OuPih4doYVCd mUMiPRssHOO6D13lf3Y0XSPs MDAw ZRZ7uQY4aC8mmKyiounzqZAt sPxktxDflHxcOGssIPsxO014 QCFbyQdhJj3JApe5V3RbKtg9 ZCBz gOcwGC9pgFGhQWmpXc5epLvg qElfMC7mQQCoupqhf749ZeBe t5ewDPVcmBAmAMdqAZQ6V98k b3I6 JORfTVYyYJB5qLB7tA9sjFve bjogbGVmdDsgdmVydGljYWwt ANumX381XCBeuRweQcVmjJZl Ojwv dGQ+DO86vx94F5AyJonnFne5 ODClGUG9uVE0hT6cWERrYGpw a8L3cHQ9P5TsfyUbws8rp6xg YXBz ZTog (more content not included)... Normal [facility] Consent for Treatmenton 02-21 Consent for Treatment [id number]#1.00CD: 127 [facility] HIPAA Forms Officeon HIPAA Forms Office [id number]#1.00CD :127 [facility] Legal Correspondence Officeo n 03-14-2022 Legal Correspondence Office [id number]#1.00CD :127 Normal [facility] Office/Clinic Note-Physician on 03-14-2022 Office/Clinic Note-Physician [id number]#1.00CD :127 [facility] Outside Records Officeon Outside Records Office [id number]#1.00CD :127 [facility] Patient History Officeon Patient History Office [id number]#1.00CD :127 Normal [facility] Radiology Outside Office [employer] yon 03-14-2022 Radiology Outside Office Copy [id number]#1.00CD :127 Normal [facility] H PYLORI ANTIBODY IGGon 02-21 H. PYLORI IGG ABS 0.25 Index Value Normal 0.00-0.79 [facility] Comment on above: Result Comment: Nega tive <0.80 Equivocal 0.80 - 0.89 Positive >0.89 Performed By: #### T 4AMARILIS, HPYLLC #### [facility] [address] [address] [address] Kareem Urbina T4 [facility] 03-11-2022 T4 [Mass/Vol] 2.4 ug/dL Critically low 4.5-12.0 [facility] Comment on above: Performed By: #### T 4LC, HPYLLC #### [facility] [address] [place] [address] Dr. Kareem Urbina FREE T3on 03-10-2022 FREE T3 0.97 pg/mlL Critically low 2.18-3.98 [facility] Comment on above: Performed By: #### C BC #### [facility] [address] [place] [address] Dr. Kareem Urbina TSHon 03-10-2022 TSH 34.602 uIU/mL Critically high 0.358-3.740 [facility] Comment on above: Performed By: #### C BC #### [facility] [address] [place] [address] Dr. Kareem Urbina Outside Records Officeon Outside Records Office [id number]#1.00CD :127 Normal [facility] Radiology Outside Office [employer] yon 03-06-2022 Radiology Outside Office Copy [id number]#1.00CD :127 Normal [facility] Radiology Outside Office Copy [id number]#1.00CD :127 Normal [facility] Referrals Officeon 2 Referrals Office [id number]#1.00CD :127 Normal [facility] SARS-CoV-2 (COVID-19) RNA JUANITA+probe Ql (Unsp spec) Not detected Normal NOT DETECTED [facility] Comment on above: Result Comment: When diagnostic testing is negative, the possibility of a false negative should be considered in the context of a patient's recent exposures and the presence of clinical signs and symptoms consistent with SARS-CoV-2. This test is not yet approved or cleared by the [place] FDA. When there are no FDA-approved or cleared tests available, and other criteria are met, FDA can make tests available under an emergency access mechanism called an Emergency Use Authorization (EUA). The EUA for this test is supported by the [place] of Health and Human Service's declaration that circumstances exist to justify the emergency use of in vitro diagnostics for the detection and/or diagnosis of the virus that causes COVID-19. This EUA will remain in effect for the duration of the COVID-19 declaration justifying emergency of IVDs, unless it is terminated or revoked by the FDA (after which the test may no longer be used). Performed By: #### [facility] #### [facility] [address] [place] [address] Dr. Kaerem Urbnia OPERATIVE REPORTon 2 OPERATIVE REPORT NAME: SAIRA ALEXIS MR#: [id number] SURGEON: Carolee Sandy MD DATE OF SURGERY: 01/30/2022 OPERATIVE REPORT PREOPERATIVE DIAGNOSIS: Herniated disk with lateral recess stenosis. POSTOPERATIVE DIAGNOSIS: Herniated disk with lateral recess stenosis. OPERATIVE PROCEDURE: Left L5-S1 translaminar epidural injection with 80 mg of Depo-Medrol. DESCRIPTION OF PROCEDURE: The patient was placed prone on the x-ray table and MAC anesthesia administered. The back was prepped and draped in usual fashion. Local anesthesia was infiltrated with 1% plain Xylocaine. Under C- arm guidance, a 20-gauge Tuohy epidural needle was placed down to the left interlaminar space at L5-S1 and a glass syringe was affixed. Insufflation was performed as the needle was advanced through the ligamentum flavum. With loss of resistance, aspiration yielded no CSF or blood. The epidural space was injected with 8 mL of 1% plain Xylocaine and 80 mg of Depo-Medrol. The needle was withdrawn. Dressing applied. The patient was awakened, taken to recovery room in excellent condition. There were no complications. CAROLEE SANDY MD JFS/MODL/[id number] E/S: Carolee Sandy MD 02/22/22 1026 Electronically Signed [facility] PT NAME: SAIRA ALEXIS MR#: [id number] [address] [place] [address] ACCT: [id number] : 78 OPERATIVE REPORT Normal [facility] MRI LSPINE WO CONon 01-11-20 MRI LSPINE WO CON EXAMINATION: MRI LSP INE WO CON HISTORY: Low back pain COMPARISON: No relevant comparison available. TECHNIQUE: A variety of imaging planes and parameters were utilized for visualization of suspected pathology. FINDINGS: For the purposes of numbering, sagittal T2 image # 9 extends from the T11 vertebral body superiorly to the S2-S3 level inferiorly. PARASPINAL AREA: Normal with no visible mass. BONES: Normal alignment of the vertebral bodies with no acute fracture, spondylolisthesis or bone edema. Minimal to mild degenerative spondylosis and facet osteoarthropathy. CORD/CAUDA EQUINA: Normal caliber, contour, and signal intensity. DISC LEVELS: 12-L1: No significant disc/facet abnormality, spinal stenosis, or foraminal stenosis. L1-L2: No significant disc/facet abnormality, spinal stenosis, or foraminal stenosis. L2-L3: No significant disc/facet abnormality, spinal stenosis, or foraminal stenosis. L3-L4: No significant disc/facet abnormality, spinal stenosis, or foraminal stenosis. L4-L5: Disc desiccation. Right foraminal lateral disc protrusion extending up to 2.5 mm ligamentum flavum hypertrophy and facet osteophytes arthropathy. No central canal or left foraminal stenosis. Mild right foraminal stenosis sagittal image 11 L5-S1: Moderate to severe disc space narrowing with endplate sclerosis. Posterior central left foraminal lateral disc herniation of the protrusion type extending posteriorly up to 5.2 mm on sagittal image 6. No central canal stenosis. Mild right foraminal stenosis. 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 Endplate osteophytes and facet hypertrophic changes are seen which are consistent with degenerative joint disease. No focal lesions are identified. IMPRESSION: Moderate lumbar degenerative changes Electronically authenticated by: EMELY ESQUIVEL Date: 2022-01-04 18:32 Normal [facility] Senior Care Documentson 10-14-2021 Senior Care Documents [id number]#1.00CD :127 Normal [facility] Coding Summaryon 03-12-2019 Coding Summary CODING DATE: [facility] STATUS: Home PAYOR: Medicare APC DESCRIPTION 5022 Level 2 Type A ED Visits ADMIT DX: REASON FOR VISIT DX: K08.89 Other specified disorders of teeth and supporting structures FINAL DX: PRINCIPAL: K04.7 Periapical abscess without sinus SECONDARY: K02.9 Dental caries, unspecified PYMT PROC APC STAT DESCRIPTION DOCTOR NAME DATE NOTE: The code number assigned matches the documented diagnosis and / or procedure in the patient's chart. However, the narrative phrase printed from the coding software may appear abbreviated, or result in slightly different terminology. Coded By: Aleah Farmer Date Saved: 03/12/2019 02:53 pm Normal [facility] Coding Summary CODING DATE: [facility] STATUS: Home PAYOR: Medicare APC DESCRIPTION 5022 Level 2 Type A ED Visits ADMIT DX: REASON FOR VISIT DX: K08.89 Other specified disorders of teeth and supporting structures FINAL DX: PRINCIPAL: K04.7 Periapical abscess without sinus SECONDARY: PYMT PROC APC STAT DESCRIPTION DOCTOR NAME DATE NOTE: The code number assigned matches the documented diagnosis and / or procedure in the patient's chart. However, the narrative phrase printed from the coding software may appear abbreviated, or result in slightly different terminology. Coded By: Aleah Farmer Date Saved: 03/12/2019 02:52 pm [facility] Coding Summary CODING DATE: [facility] STATUS: Home PAYOR: Medicare ADMIT DX: REASON FOR VISIT DX: K08.89 Other specified disorders of teeth and supporting structures FINAL DX: PRINCIPAL: K04.7 Periapical abscess without sinus SECONDARY: PYMT PROC APC STAT DESCRIPTION DOCTOR NAME DATE NOTE: The code number assigned matches the documented diagnosis and / or procedure in the patient's chart. However, the narrative phrase printed from the coding software may appear abbreviated, or result in slightly different terminology. Coded By: Aleah Farmer Date Saved: 03/12/2019 02:52 pm [facility] ED Clinical Summaryon 2018 ED Clinical Summary [facility] - Emergency Department [address] [place], [place] [id number] ED Clinical Summary PERSON INFORMATION Name: SAIRA ALEXIS Age: 39 Years Sex: FEMALE : 1980 MRN: Acct#: Visit Reason: Dental pain; DENTAL PAIN Arrival: 03/09/2019 19:35:00 Discharge: 03/09/2019 20:49:00 LOS: 000 01:14 Check In: 03/09/2019 19:35:00 Checkout:03/09/2019 20:49:00 Address: [address] [place] [address] PCP: SANDRA AMAYA PROVIDER INFORMATION Provider Role Assigned Unassigned Juan Caraballo MD ED Provider 03/09/2019 20:12:14 Nesha Rosado RN ED Nurse 03/09/2019 20:22:36 VITALS INFORMATION Vital Sign Triage Latest Temperature Tympanic Temperature Temporal Artery Pulse Rate 76 bpm 76 bpm O2 Sat 98 % 98 % Respiratory Rate 18 br/min 18 br/min Blood Pressure /56 mmHg /56 mmHg MEDICAL INFORMATION Medications Given: Medication Dose Route acetaminophen-hydrocodon e 1 tab(s) PO amoxicillin-clavulanate 1 tab(s) PO Allergy Information: No known allergies PHYSICIAN DOCUMENTATION Patient: SAIRA ALEXIS Age: 39 years Sex: FEMALE : 1980 Associated Diagnoses: Dental abscess Author: Juan Caraballo MD Basic Information Time seen: Date & time 03/09/2019 20:30:00. History source: Patient. Arrival mode: Private vehicle. History limitation: None. Additional information: Chief Complaint from Nursing Triage Note : Chief Complaint 03/09/2019 20:15 EDT Chief Complaint Pt states that she has an chipped tooth and abscess in the rt lower jaw. Pt saw her dentist about a week ago and is having a root canal in month . History of Present Illness this 39-year-old female has right lower jaw dental pain, month duration now is getting worse. She cannot see her dentist told to return days at the very soonest, she does have an appointment for 1 month which she has scheduled. She is not diabetic and a smoker. He has had several root canals. Review of Systems Constitutional symptoms: no Fatigue, no fever, no chills. Skin symptoms: Negative except as documented in HPI. ENMT symptoms: Negative except as documented in HPI. dental pain Respiratory symptoms: Negative except as documented in HPI. Cardiovascular symptoms: Negative except as documented in HPI. Gastrointestinal symptoms: Negative except for documented as above in the HPI Genitourinary symptoms: Negative except as documented in HPI. Musculoskeletal symptoms: Negative except as documented in HPI. Neurologic symptoms: Negative except as documented in HPI. Remainder of 10 systems, all negative except for mentioned above Health Status Allergies: Allergic Reactions (Selected) No known allergies. Medications: (Selected) Inpatient Medications Ordered Augmentin 875 mg-125 mg oral tablet: 1 tab(s), PO, Once Huxford 5 mg-325 mg oral tablet: 1 tab(s), PO, Once H[facility] 5 mg-325 mg oral tablet: 2 tab(s), PO, Once Documented Medications Documented Adderall: PO, BID, 0 Refill(s) Lyrica: PO, 0 Refill(s) Synthroid: PO, Daily, 0 Refill(s). Physical Examination CONST: -Well-developed well-nourished ; -In no acute distress. -Vitals reviewed. EYES: -EOM intact, BRAVO: -Sclera normal and conjunctiva: clear bilaterally. ENT: - Normal pharynx pink and moist.very carious second molar lower right, which I believe is eroding into the pulp. This is tender NECK: -Supple ([id number]). CARD: -Rate and rhythm: Regular -Murmurs: No RESP: -Respiratory effort and chest excursion with respirations: Normal -Breath sounds equal bilaterally: Clear -Wheezes: No -Rales: No BACK: -Flank pain: No -Pain on palpation: No ABD: -Distended: No -Bruits: No -Bowel sounds: Normal. -Deep palpation: Non-tender -Organomegaly palpable: No -Abnormal masses: No EXT: Gross appearance and use of all four extremities: Normal SKIN: -Good turgor warm and dry. -Apparent lesions or rashes: No NEURO: -Patient: alert -Oriented to: person, place and time. -Appearance and judgment: appropriate. -Cranial Nerves: Normal. -Speech: Normal Medical Decision Making patient encouraged to go see a dentist as soon as possible I believe this to be an abscessed tooth. For fever worsening or shaking chills she will be returning Impression and Plan Diagnosis Dental abscess ([id number] K04.7, Discharge, Medical) Plan Condition: Improved. Disposition: Discharged: Time 03/09/2019 20:35:00, to home. Prescriptions: Launch prescriptions Pharmacy: [facility] 5 mg-325 mg oral tablet (Prescribe): 1 tab(s), PO, q4hr, PRN: for pain, 18 tab(s), 0 Refill(s) Augmentin 875 mg-125 mg oral tablet (Prescribe): 1 tab(s), PO, q12hr, for 7 day(s), 14 tab(s), 0 Refill(s). Patient was given the following educational materials: Dental Abscess. Follow up with: ; see your dentist as soon as possible Within 3 to 5 days. Counseled: Patient, Friend, Regarding diagnosis, Regarding diagnostic results, Regarding treatment plan, Regarding prescription, Patient indicated understanding of instructions. DISCHARGE INFORMATION: Discharge Disposition: Home Discharge Location: Home PATIENT EDUCATION INFORMATION Instructions: Dental Abscess Follow-Up: With: Address: When: see your dentist as soon as possible Within 3 to 5 days DIAGNOSIS: Dental abscess Patient Understands: Yes - Patient/family/caregiver verbalizes understanding of instructions given Comment: [facility] ED Note - Physicianon 2018 ED Note - Physician Patient: DORIE ALEXIS Age: 39 years Sex: FEMALE : 1980 Associated Diagnoses: Dental abscess Author: Juan Caraballo MD Basic Information Time seen: Date & time 03/09/2019 20:30:00. History source: Patient. Arrival mode: Private vehicle. History limitation: None. Additional information: Chief Complaint from Nursing Triage Note : Chief Complaint 03/09/2019 20:15 EDT Chief Complaint Pt states that she has an chipped tooth and abscess in the rt lower jaw. Pt saw her dentist about a week ago and is having a root canal in month . History of Present Illness this 39-year-old female has right lower jaw dental pain, month duration now is getting worse. She cannot see her dentist told to return days at the very soonest, she does have an appointment for 1 month which she has scheduled. She is not diabetic and a smoker. He has had several root canals. Review of Systems Constitutional symptoms: no Fatigue, no fever, no chills. Skin symptoms: Negative except as documented in HPI. ENMT symptoms: Negative except as documented in HPI. dental pain Respiratory symptoms: Negative except as documented in HPI. Cardiovascular symptoms: Negative except as documented in HPI. Gastrointestinal symptoms: Negative except for documented as above in the HPI Genitourinary symptoms: Negative except as documented in HPI. Musculoskeletal symptoms: Negative except as documented in HPI. Neurologic symptoms: Negative except as documented in HPI. Remainder of 10 systems, all negative except for mentioned above Health Status Allergies: Allergic Reactions (Selected) No known allergies. Medications: (Selected) Inpatient Medications Ordered Augmentin 875 mg-125 mg oral tablet: 1 tab(s), PO, Once Huxford 5 mg-325 mg oral tablet: 1 tab(s), PO, Once Huxford 5 mg-325 mg oral tablet: 2 tab(s), PO, Once Documented Medications Documented Adderall: PO, BID, 0 Refill(s) Lyrica: PO, 0 Refill(s) Synthroid: PO, Daily, 0 Refill(s). Physical Examination CONST: -Well-developed well-nourished ; -In no acute distress. -Vitals reviewed. EYES: -EOM intact, BRAVO: -Sclera normal and conjunctiva: clear bilaterally. ENT: - Normal pharynx pink and moist.very carious second molar lower right, which I believe is eroding into the pulp. This is tender NECK: -Supple ([id number]). CARD: -Rate and rhythm: Regular -Murmurs: No RESP: -Respiratory effort and chest excursion with respirations: Normal -Breath sounds equal bilaterally: Clear -Wheezes: No -Rales: No BACK: -Flank pain: No -Pain on palpation: No ABD: -Distended: No -Bruits: No -Bowel sounds: Normal. -Deep palpation: Non-tender -Organomegaly palpable: No -Abnormal masses: No EXT: Gross appearance and use of all four extremities: Normal SKIN: -Good turgor warm and dry. -Apparent lesions or rashes: No NEURO: -Patient: alert -Oriented to: person, place and time. -Appearance and judgment: appropriate. -Cranial Nerves: Normal. -Speech: Normal Medical Decision Making patient encouraged to go see a dentist as soon as possible I believe this to be an abscessed tooth. For fever worsening or shaking chills she will be returning Impression and Plan Diagnosis Dental abscess ([id number] K04.7, Discharge, Medical) Plan Condition: Improved. Disposition: Discharged: Time 03/09/2019 20:35:00, to home. Prescriptions: Launch prescriptions Pharmacy: [facility] 5 mg-325 mg oral tablet (Prescribe): 1 tab(s), PO, q4hr, PRN: for pain, 18 tab(s), 0 Refill(s) Augmentin 875 mg-125 mg oral tablet (Prescribe): 1 tab(s), PO, q12hr, for 7 day(s), 14 tab(s), 0 Refill(s). Patient was given the following educational materials: Dental Abscess. Follow up with: ; see your dentist as soon as possible Within 3 to 5 days. Counseled: Patient, Friend, Regarding diagnosis, Regarding diagnostic results, Regarding treatment plan, Regarding prescription, Patient indicated understanding of instructions. [Electronically Signed on: 03/09/2019 20:36 EDT] Juan Caraballo MD [Verified on: 03/09/2019 20:36 EDT] Juan Caraballo MD [facility] ED Note-Nursingon 03-09-2019 ED Note-Nursing Pt presents to ED r/ t dental pain in the bottom right jaw. Pt reports she was in to see her dentist 1 week ago and was told she has an abscess where she chipped her tooth. Pt reports she is scheduled for a root canal but the pain is getting to the point she cannot take it any more. Pt reports the pain is a 7/10 at this time. Pt states the pain has radiated to her right ear and right neck. Pt denies any SOB or fever. [facility] ED Patient Education Noteon 03-09-2019 ED Patient Education Note Education Materials Dentistry Dental Abscess A dental abscess is a collection of pus in or around a tooth that results from an infection. An abscess can cause pain in the affected area as well as other symptoms. Treatment is important to help with symptoms and to prevent the infection from spreading. What are the causes? This condition is caused by a bacterial infection around the root of the tooth that involves the inner part of the tooth (pulp). It may result from: ? Severe tooth decay. ? Trauma to the tooth, such as a broken or chipped tooth, that allows bacteria to enter into the pulp. ? Severe gum disease around a tooth. What increases the risk? This condition is more likely to develop in males. It is also more likely to develop in people who: ? Have dental decay (cavities). ? Eat sugary snacks between meals. ? Use tobacco products. ? Have diabetes. ? Have a weakened disease-fighting system (immune system). ? Do not brush and care for their teeth regularly. What are the signs or symptoms? Symptoms of this condition include: ? Severe pain in and around the infected tooth. ? Swelling and redness around the infected tooth, in the mouth, or in the face. ? Tenderness. ? Pus drainage. ? Bad breath. ? Bitter taste in the mouth. ? Difficulty swallowing. ? Difficulty opening the mouth. ? Nausea. ? Vomiting. ? Chills. ? Swollen neck glands. ? Fever. How is this diagnosed? This condition is diagnosed based on: ? Your symptoms and your medical and dental history. ? An examination of the infected tooth. During the exam, your dentist may tap on the infected tooth. You may also have X-rays of the affected area. How is this treated? This condition is treated by getting rid of the infection. This may be done with: ? Incision and drainage. This procedure is done by making an incision in the abscess to drain out the pus. Removing pus is the first priority in treating an abscess. ? Antibiotic medicines. These may be used in certain situations. ? Antibacterial mouth rinse. ? A root canal. This may be performed to save the tooth. Your dentist accesses the visible part of your tooth (crown) with a drill and removes any damaged pulp. Then the space is filled and sealed off. ? Tooth extraction. The tooth is pulled out if it cannot be saved by other treatment. You may also receive treatment for pain, such as: ? Acetaminophen or NSAIDs. ? Gels that contain a numbing medicine. ? An injection to block the pain near your nerve. Follow these instructions at home: Medicines ? Take jzzm-nie-omddssy and prescription medicines only as told by your dentist. ? If you were prescribed an antibiotic, take it as told by your dentist. Do not stop taking the antibiotic even if you start to feel better. ? If you were prescribed a gel that contains a numbing medicine, use it exactly as told in the directions. Do not use these gels for children who are younger than 2 years of age. ? Do not drive or use heavy machinery while taking prescription pain medicine. General instructions ? Rinse out your mouth often with salt water to relieve pain or swelling. To make a salt-water mixture, completely dissolve ??1 tsp of salt in 1 cup of warm water. ? Eat a soft diet while your abscess is healing. ? Drink enough fluid to keep your urine pale yellow. ? Do not apply heat to the outside of your mouth. ? Do not use any products that contain nicotine or tobacco, such as cigarettes and e-cigarettes. If you need help quitting, ask your health care provider. ? Keep all follow-up visits as told by your dentist. This is important. How is this prevented? ? Olyphant your teeth every morning and night with fluoride toothpaste. Floss one time each day. ? Get regularly scheduled dental cleanings. ? Consider having a dental sealant applied on teeth that have deep holes (caries). ? Drink fluoridated water regularly. This includes most tap water. Check the label on bottled water to see if it contains fluoride. ? Drink water instead of sugary drinks. ? Eat healthy meals and snacks. ? Wear a mouth guard or face shield to protect your teeth while playing sports. Contact a health care provider if: ? Your pain is worse and is not helped by medicine. Get help right away if: ? You have a fever or chills. ? Your symptoms suddenly get worse. ? You have a very bad headache. ? You have problems breathing or swallowing. ? You have trouble opening your mouth. ? You have swelling in your neck or around your eye. Summary ? A dental abscess is a collection of pus in or around a tooth that results from an infection. ? A dental abscess may result from severe tooth decay, trauma to the tooth, or severe gum disease around a tooth. ? Symptoms include severe pain, swelling, redness, and drainage of pus in and around the infected tooth. ? The first priority in treating a dental abscess is to drain out the pus. Treatment may also involve removing damage inside the tooth (root canal) or pulling out (extracting) the tooth. This information is not intended to replace advice given to you by your health care provider. Make sure you discuss any questions you have with your health care provider. Document Released: 07/09/2006 Document Revised: 03/11/2018 Document Reviewed: 03/11/2018 [employer] Interactive Patient Education ? 2019 [employer] Normal [facility] ED Patient Summaryon 019 ED Patient Summary [facility] - Emergency Department [address] [place] [id number] PATIENT DISCHARGE INSTRUCTIONS Patient Information Name: SAIRA ALEXIS Age: 39 Years Date of : 1980 Reason For Visit: Dental pain; DENTAL PAIN Arrival Time: 03/09/2019 19:35:00 Primary Care Physician: SANDRA AMAYA Attending Physician: Juan Caraballo MD Comment: Visit Diagnosis: Diagnoses This Visit Dental abscess (K04.7) Dental pain ([id number]) Prescription Information: If you have been given a prescription for narcotics, seek immediate medical attention if you have any difficulty breathing or any sudden status changes such as confusion and sleepiness. If you or anyone you know is experiencing suicidal thoughts, mental health, alcohol and/or drug addiction problems; contact the [facility] 12/02 Crisis Hotline -text 4hope to 741741. If you received any narcotics, sedation, or any other medication that causes drowsiness for the next 24 hours, unless otherwise directed: ? Do not drive a car. ? Do not operate machinery such as power tools, lawn mowers, drills, sewing machines, or stoves ? Avoid alcoholic beverages and drugs for allergies, nerves, or sleep ? Do not make important personal or business decisions or sign any legal documents With: Address: When: see your dentist as soon as possible Within 3 to 5 days Medication Information: The exam and treatment you received today in the [facility] Emergency Department were for an urgent problem and are not intended as complete care. It is important for you to follow up with a doctor, nurse practitioner, or physician?s economic research assistant for ongoing care. If your symptoms become worse or you do not improve as expected and you are unable to reach your usual health care provider, you should return to the Emergency Department, we are available 24 hours a day. For those patients who have received Radiology results, the interpretation of your X-ray as given to you by our Emergency Department physician is only a preliminary report. The Radiologist will review your films and if there is a change in the diagnosis you will be notified by phone. Please make sure you have provided a working phone number so we can reach you if necessary. In the event that you had a lab culture while you were a patient in the Emergency Department, you will be notified by phone if there is a need to change your antibiotic. Please make sure you have provided a working phone number so we can reach you if necessary. [facility] Emergency Department has provided you with a complete list of medications post discharge. Please inform your last remodeler repairer/provider of your visit and for further instruction on these medications. Any specific questions regarding your chronic medications and dosages should be discussed with your primary care physician(s) and/or pharmacist. New Medications Printed Prescriptions acetaminophen-hydrocodon e ([facility] 5 mg-325 mg oral tablet) 1 tab(s) Oral Every 4 hours as needed for pain. Refills: 0. amoxicillin-clavulanate (Augmentin 875 mg-125 mg oral tablet) 1 tab(s) Oral Every 12 hours scheduled time for 7 Days. Refills: 0. Medications to Continue That Have Not Changed Other Medications amphetamine-dextroamphet amine (Adderall) Oral 2 times a day. levothyroxine (Synthroid) Oral every day. pregabalin (Lyrica) Oral. Visit Information Allergies: Substance Reaction Symptoms Type Comments No known allergies Drug Vital Signs: Vitals and Measurements this Visit (last charted value for your 03/09/2019 visit) Vital Signs This Visit Temperature Oral: 36.6 DegC Peripheral Pulse Rate: 76 bpm Respiratory Rate: 18 br/min Systolic Blood Pressure: 116 mmHg Diastolic Blood Pressure: 56 mmHg SpO2: 98 % Oxygen Therapy: Room air Measurements This Visit Height/Length Dosin.560 cm Height/Length Estimated: 162.560 cm Weight Dosin.770 kg Weight Estimated: 65.770 kg Problems List: Problem Onset Comments Fibromyalgia Graves disease had her thyroid removed Narcolepsy Patient Education Dental Abscess A dental abscess is a collection of pus in or around a tooth that results from an infection. An abscess can cause pain in the affected area as well as other symptoms. Treatment is important to help with symptoms and to prevent the infection from spreading. What are the causes? This condition is caused by a bacterial infection around the root of the tooth that involves the inner part of the tooth (pulp). It may result from: ? Severe tooth decay. ? Trauma to the tooth, such as a broken or chipped tooth, that allows bacteria to enter into the pulp. ? Severe gum disease around a tooth. What increases the risk? This condition is more likely to develop in males. It is also more likely to develop in people who: ? Have dental decay (cavities). ? Eat sugary snacks between meals. ? Use tobacco products. ? Have diabetes. ? Have a weakened disease-fighting system (immune system). ? Do not brush and care for their teeth regularly. What are the signs or symptoms? Symptoms of this condition include: ? Severe pain in and around the infected tooth. ? Swelling and redness around the infected tooth, in the mouth, or in the face. ? Tenderness. ? Pus drainage. ? Bad breath. ? Bitter taste in the mouth. ? Difficulty swallowing. ? Difficulty opening the mouth. ? Nausea. ? Vomiting. ? Chills. ? Swollen neck glands. ? Fever. How is this diagnosed? This condition is diagnosed based on: ? Your symptoms and your medical and dental history. ? An examination of the infected tooth. During the exam, your dentist may tap on the infected tooth. You may also have X-rays of the affected area. How is this treated? This condition is treated by getting rid of the infection. This may be done with: ? Incision and drainage. This procedure is done by making an incision in the abscess to drain out the pus. Removing pus is the first priority in treating an abscess. ? Antibiotic medicines. These may be used in certain situations. ? Antibacterial mouth rinse. ? A root canal. This may be performed to save the tooth. Your dentist accesses the visible part of your tooth (crown) with a drill and removes any damaged pulp. Then the space is filled and sealed off. ? Tooth extraction. The tooth is pulled out if it cannot be saved by other treatment. You may also receive treatment for pain, such as: ? Acetaminophen or NSAIDs. ? Gels that contain a numbing medicine. ? An injection to block the pain near your nerve. Follow these instructions at home: Medicines ? Take eudb-vmc-numokjy and prescription medicines only as told by your dentist. ? If you were prescribed an antibiotic, take it as told by your dentist. Do not stop taking the antibiotic even if you start to feel better. ? If you were prescribed a gel that contains a numbing medicine, use it exactly as told in the directions. Do not use these gels for children who are younger than 2 years of age. ? Do not drive or use heavy machinery while taking prescription pain medicine. General instructions ? Rinse out your mouth often with salt water to relieve pain or swelling. To make a salt-water mixture, completely dissolve ??1 tsp of salt in 1 cup of warm water. ? Eat a soft diet while your abscess is healing. ? Drink enough fluid to keep your urine pale yellow. ? Do not apply heat to the outside of your mouth. ? Do not use any products that contain nicotine or tobacco, such as cigarettes and e-cigarettes. If you need help quitting, ask your health care provider. ? Keep all follow-up visits as told by your dentist. This is important. How is this prevented? ? Olyphant your teeth every morning and night with fluoride toothpaste. Floss one time each day. ? Get regularly scheduled dental cleanings. ? Consider having a dental sealant applied on teeth that have deep holes (caries). ? Drink fluoridated water regularly. This includes most tap water. Check the label on bottled water to see if it contains fluoride. ? Drink water instead of sugary drinks. ? Eat healthy meals and snacks. ? Wear a mouth guard or face shield to protect your teeth while playing sports. Contact a health care provider if: ? Your pain is worse and is not helped by medicine. Get help right away if: ? You have a fever or chills. ? Your symptoms suddenly get worse. ? You have a very bad headache. ? You have problems breathing or swallowing. ? You have trouble opening your mouth. ? You have swelling in your neck or around your eye. Summary ? A dental abscess is a collection of pus in or around a tooth that results from an infection. ? A dental abscess may result from severe tooth decay, trauma to the tooth, or severe gum disease around a tooth. ? Symptoms include severe pain, swelling, redness, and drainage of pus in and around the infected tooth. ? The first priority in treating a dental abscess is to drain out the pus. Treatment may also involve removing damage inside the tooth (root canal) or pulling out (extracting) the tooth. This information is not intended to replace advice given to you by your health care provider. Make sure you discuss any questions you have with your health care provider. Document Released: 07/09/2006 Document Revised: 03/11/2018 Document Reviewed: 03/11/2018 [employer] Interactive Patient Education ? 2019 [employer] Viruses or Bacteria What?s got you sick? Antibiotics only treat bacterial infections. Viral illnesses cannot be treated with antibiotics. When an antibiotic is not prescribed, ask your healthcare professional for tips on how to relieve symptoms and feel better. Usual Cause Illness Viruses Bacteria Antibiotic Needed Cold/Runny Nose NO Bronchitis/Chest Cold (in otherwise healthy children and adults) NO Whooping Cough Yes Flu NO Strep Throat Yes Sore Throat (except strep) NO Fluid in the middle ear (otitis media with effusion) NO Urinary Tract Infection Yes Antibiotics Aren?t Always the Answer www.cdc.gov/getsmart GET SMART Know When Antibiotics Work [place].S. Department of Health and Human Services Centers for Disease Control and Prevention March 2014 [facility] Vital Signs Date Time Vital Sign Value Performing Clinician Bandar smith 03-14-2022 09:24-0400 Diastolic blood pressure 86 mm[Hg] Juan F Day [facility] 03-14-2022 09:24-0400 Heart rate 86 /min Juan F Day [facility] 03-14-2022 09:24-0400 Mean blood pressure 102 mm[Hg] Juan F Day [facility] 03-14-2022 09:24-0400 Respiratory rate 18 /min Juan Fana cristina Day [facility] 03-14-2022 09:24-0400 Systolic blood pressure 135 mm[Hg] Juan F Day [facility] Encounters Encounter Date Encounter Type Care Provider Facility Start: 11-13-2023 End: 11-13-2023 ambulatory [facility] Work Phone: Start: 11-13-2023 End: 11-13-2023 Patient encounter procedure [facility] Work Phone: Start: 09-03-2023 (Procedure) Short Bertin Velez [facility] Start: 09-03-2023 End: 09-03-2023 ambulatory Bertin Velez Other [facility] Other Start: 08-14-2023 End: 08-14-2023 ambulatory Bertin Velez Other [facility] Other Start: 08-14-2023 Telephone encounter Bertin [facility] Start: 07-10-2023 End: 07-10-2023 ambulatory Bertin Glenner Other [facility] Other Start: 07-10-2023 Office outpatient visit 15 minutes Bertin Elizabether [facility] [place] Start: 06-27-2023 (Procedure) Short Bertin Velez [facility] Start: 06-27-2023 End: 06-27-2023 ambulatory Bertin Elizabether Other [facility] Other Start: 06-11-2023 End: 06-11-2023 ambulatory Bertin Elizabether Other [facility] Other Start: 06-11-2023 Office outpatient visit 25 minutes Bertin Elizabether [facility] [place] Start: 02-07-2023 End: 02-07-2023 ambulatory Bertin Glenner Other [facility] Other Start: 02-07-2023 Office outpatient visit 25 minutes Bertin Elizabether [facility] [place] Start: 01-31-2023 (Procedure) Tiffanie Velez [facility] Start: 01-31-2023 End: 01-31-2023 ambulatory Bertin Elizabether Other [facility] Other Start: 01-24-2023 End: 01-24-2023 ambulatory Bertin Glenner Other [facility] Other Start: 01-24-2023 Telephone encounter Bertin [facility] Start: 01-15-2023 End: 01-15-2023 ambulatory Bertin Elizabether Other [facility] Other Start: 01-15-2023 Office outpatient ne w 45 minutes Bertin Elizabether [facility] [place] Start: 01-15-2023 Telephone encounter Bertin Prince [facility] Start: 11-09-2022 End: 11-10-2022 ambulatory MATTHIASJOSEPHMANE GILLESPIESALASGABRIELLEPATHY . Facility:[facility]1 Start: 10-24-2022 End: 10-24-2022 ambulatory YANIRAMANE GILLESPIESALASGABRIELLEPATHFrancesco . Facility:[facility] Start: 09-26-2022 End: 09-27-2022 ambulatory JOSH GARCIAGABRIELLEGUALBERTO . Facility:[facility] Start: 09-20-2022 End: 09-21-[address] SANDRA AMAYA . Facility:[facility] Start: 08-22-2022 End: 08-23-[address] HARPER FINE . Facility:[facility] Start: 08-19-2022 End: 08-20-[address] SANDRA AMAYA . Facility:[facility] Start: 07-25-[address] SANDRA AMAYA . Facili ty:[facility]1 Start: 07-23-2022 End: 08-12-[address] SANDRA AMAYA . Facility:[facility] Start: 07-05-2022 End: 07-22-[address] SANDRA AMAYA . Facility:[facility] Start: 06-01-2022 End: 06-02-[address] SANDRA AMAYA . Facility:[facility] Start: 05-17-2022 End: 05-18-[address] SANDRA AMAYA . Facility:[facility] Start: 05-09-2022 End: 05-09-[address] ALIZE BENTON Facility:[facility] Start: 04-14-2022 End: 04-14-2022 ambulatory DORCAS TOVAR . [facility] [employer] Other Start: 04-14-2022 Patient encounter procedure Irina Soler [facility] Start: 04-12-2022 End: 04-13-[address] SANDRA AMAYA . Facility:[facility] Start: 03-14-2022 End: 03-14-2022 Patient encounter procedure Juan F Day [facility] Start: 03-10-2022 End: 03-11-[address] SANDRA AMAYA . Facility:[facility] Start: 02-17-2022 End: 02-17-[address] SANDRA AMAYA . Facility:[facility] Start: 01-10-2022 End: 01-11-[address] SANDRA AMAYA . Facility:[facility] Start: 01-04-2022 End: 01-05-[address] SANDRA AMAYA . Facility:[facility] Procedures Date Procedure Procedure Detail Performing Clinician section Juan F adan Comment on above: 2007 Hysterectomy Juan F Day Comment on above: 2012 Laparoscopy Juan F Day Comment on above: 2004 Payers Date Payer Category Payer Unknown [id number] 2.16.84 [id number] 1979 Unknown [id number] 2.16.84 [id number] 1979 Unknown [id number] 2.16.84 [id number] 1979 Unknown [id number] 2.16.84 0.1.750487.3.579.2.593 1979 Unknown [id number] 2.16.84 0.1.373629.3.579.2.593 1979 Unknown [id number] 2.16.84 0.1.131909.3.579.2.593 1979 Unknown [id number] 2.16.84 0.1.563875.3.579.2.593 1979 Unknown [id number] 2.16.84 0.1.426207.3.579.2.593 1979 Unknown [id number] 2.16.84 0.1.229846.3.579.2.593 1979 Unknown [id number] 2.16.84 0.1.319851.3.579.2.593 1979 Unknown [id number] 2.16.84 0.1.952968.3.579.2.593 1979 Unknown [id number] 2.16.84 0.1.729188.3.579.2.593 1979 Unknown [id number] 2.16.84 0.1.771780.3.579.2.593 1979 Unknown [id number] 2.16.84 0.1.416784.3.579.2.593 1979 Unknown [id number] 2.16.84 0.1.491612.3.579.2.593 1979 Unknown [id number] 2.16.84 0.1.933103.3.579.2.593 1979 Unknown [id number] 2.16.84 0.1.438874.3.579.2.593 1979 Unknown [id number] 2.16.84 0.1.448013.3.579.2.593 1960 Medicaid [id number] 2. [id number] 1960 Medicare [id number] Medicare [id number] 2.1 [id number] Self-pay Self Pay [id number] Social History Date Type Detail Facility Start: 03-14-2022 Tobacco smoking status Heavy t obacco smoker (finding) [facility] Sex Assigned At Female [facility] Start: 08-29-2018 Tobacco smoking stat [facility] Smoker (finding) [facility] Start: 1979 Sex Assigned At Female [facility] Functional Status Date Assessment Result Facility 03-14-2022 Functional Status N/A [facility] Clinical Notes 08-23-2018 to 07-10-2023 Note Date & Type Note Facility 07-10-2023 Evaluation note Encounter Date Diagnosis Assessment Notes Jun, Bilateral sacroiliitis (ICD-10 - M46.1) Patient denies any complaints of pain in the sacroiliac joint at this time. She attributes this to previous bilateral sacroiliac joint injections. We will continue to monitor and proceed with future treatment to the area as needed. Anatomy of spine discussed in detail with patient in regards to patients condition. Overall, patient believes their pain is reasonably well controlled and she is in agreement with our treatment plan. Jun, Other spondylosis with radiculopathy, lumbar region (ICD-10 - M47.26) Patient is voicing minimal complaints of pain at this time. She attributes this to a recent lumbar epidural steroid injection. We will continue to monitor her symptoms in this region. Anatomy of spine discussed in detail with patient in regard to patients condition. Overall, patient believes their pain is reasonably well controlled, and she agrees with our treatment plan. Jun, Trochanteric bursitis (ICD-10 - M70.60) Resolved following recent trochanteric bursa injection. We will continue to monitor and proceed with future treatment to the area as needed. Overall, patient believes their pain is reasonably well controlled and she is in agreement with our treatment plan. Jun, Chronic pain (ICD-10 - G89.29) Jun, Other Above note written by Avis Garcia LPN, Service Specialist. Edited and approved by Dr. Bertin Velez MD. [facility] Other 11-20-2023 Evaluation note* Encounter Date Diagnosis Assessment Notes Treatment Notes Treatment Clinical Notes May, Bilateral sacroiliitis (ICD-10 - M46.1) Patient denies any complaints of pain in the sacroiliac joint at this time. She attributes this to recent bilateral sacroiliac joint injections. We will continue to monitor and proceed with future treatment to the area as needed. Anatomy of spine discussed in detail with patient in regards to patients condition. Overall, patient believes their pain is reasonably well controlled and she is in agreement with our treatment plan. May, Other spondylosis with radiculopathy, lumbar region (ICD-10 - M47.26) Patients primary complaint today is lumbar pain radiating into the lateral and posterior aspect of her left lower extremity as well as numbness/ tingling and weakness. Previous MRI results show evidence of disc protrusion and foraminal stenosis at L4-5. It was discussed this is potentially contributing to her symptoms. Based on these results, as well as location of pain and exam findings, patient is a candidate for a lumbar epidural steroid injection which we will proceed with. Risks and benefits of procedure explained to patient; patient verbalizes understanding. Anatomy of spine discussed in detail with patient in regards to patients condition. May, Trochanteric bursitis (ICD-10 - M70.60) Resolved following recent trochanteric bursa injection. We will continue to monitor and proceed with future treatment to the area as needed. Overall, patient believes their pain is reasonably well controlled and she is in agreement with our treatment plan. May, Chronic pain (ICD-10 - G89.29) May, Other Above note writ ten by Gilmar Michelle MA, Service Specialist. Edited and approved by Dr. Bertin Veelz MD. [facility] Other 07-19-2023 Evaluation note* Encounter Date Diagnosis Assessment Notes Treatment Notes Treatment Clinical Notes Jan, Bilateral sacroiliitis (ICD-10 - M46.1) Patient denies any complaints of pain in the sacroiliac joint at this time. She attributes this to recent bilateral sacroiliac joint injections. We will continue to monitor and proceed with future treatment to the area as needed. Anatomy of spine discussed in detail with patient in regards to patients condition. Overall, patient believes their pain is reasonably well controlled and she is in agreement with our treatment plan. Jan, Other low back pain (ICD-10 - M54.59) Patient continues to report some back pain, higher than the sacroiliac region, at this time. She is expressing interest in exploring the option of a breast reduction as this may help alleviate some of her current back pain. I will refer the patient to plastic surgery for further evaluation. I will also refer her to aqua therapy for further treatment. Anatomy of spine discussed in detail with patient in regards to patients condition. Jan, Trochanteric bursitis (ICD-10 - M70.60) Resolved following recent trochanteric bursa injection. We will continue to monitor and proceed with future treatment to the area as needed. Overall, patient believes their pain is reasonably well controlled and she is in agreement with our treatment plan. Jan, Other Above note writ ten by Avis Garcia LPN, Service Specialist. Edited and approved by Dr. Bertin Velez MD. [facility] Other 06-26-2023 Evaluation note* Encounter Date Diagnosis Assessment Notes Treatment Notes Treatment Clinical Notes Dec, Bilateral sacroiliitis (ICD-10 - M46.1) We discussed treatment options for the patient's persistent low bilateral lumbar/gluteal pain. MRI was reviewed with patient, without significant stenosis or nerve impingement, explained to the patient this is not a surgical issue. She shows notable pain consistent with the bilateral sacroiliac joints and right trochanteric bursa. She has failed multiple previous conservative treatment options. Given exam findings as well as location of pain, I agree with Dr Valenzuela at this time patient is a candidate for bilateral sacroiliac joint injection and right trochanteric bursa injection, which we will proceed with. Risks and benefits of procedure explained to patient; patient verbalizes understanding. Anatomy of spine discussed in detail with patient in regard to patients condition. Dec, Trochanteric bursitis (ICD-10 - M70.60) Dec, Other low back pain (ICD-10 - M54.59) Dec, Other Above note written by Avis Garcia LPN, Service Specialist. Edited and approved by Dr. Bertin Velez MD. Medical decision making shows a new problem to me with further workup planned or suggested with the potential for extensive treatment options that were considered with the most applicable given this patient's situation as noted above. Treatment options considered include a combination of physical therapy approaches, pharmacologic management, and interventional procedures. Those most applicable to the patient were discussed at this time. Risk of complications and/or morbidity and mortality is high given that acute and chronic pain poses a threat to life and bodily function if undertreated, poorly treated or with failure to maintain adequate treatment and timely followup. Given the serious and fluctuating nature of pain with extensive consideration for whenever pain changes, there always remains the possibility of prolonged functional impairment requiring constant patient reassessment and high-level medical decision making. The amount and complexity of data reviewed is high given that patient labs, radiology reports, and other test were obtained, reviewed and summarized as applicable from the physician portal and/or outside medical records. Pertinent positive and negative findings were considered in medical decision-making. [facility] Other 04-20-2023 NoteCONSULTATION CONSULTATION DATE: 11/09/2022 TO: Sandra Amaya M.D. HISTORY: Patient returns today complaining of pain in the lower back, occurring bilaterally. Describes it as a 5-7/10 pain, sharp in character, increased with activity such as standing, walking and performing transitioning maneuvers. She feels most comfortable in a semi-recumbent position. Denies any change in bowel and bladder habits or new sensorimotor changes in the lower extremities. EXAM: Notable for patient having no clinical radiculopathy or myelopathy involving the lower extremities. Patient did have severe pain with lumbar facet joint loading maneuvers occurring bilaterally from L4-S1, associated with myofascial spasm. IMPRESSION: Our impression is patient has chronic pain secondary to multiple etiologies; 1. Lumbosacral spondylosis with facet loading pain clinically, occurring bilaterally at L4-5, L5-S1. 2. Lumbar disc displacement and myofascial spasm. RECOMMENDATIONS: I have recommended we proceed with the second diagnostic facet joint injection at L4-5 and L5-S1, as she reports that her pain had been reduced to 1/10, starting in the immediate post procedural period, lasting for several hours, with the recurrence of pain back to her baseline. Despite the improvement in her pain symptoms post procedurally, from her history it appears that some of her pain that she is having may be discogenic with a neurogenic component. For that reason, I would recommend she obtain neurosurgical consultation for evaluation for possible lumbar decompression with and without stabilization. In the interim, I have asked her to continue with the second diagnostic bilateral L4-5, L5-S1 facet joint injection under fluoroscopic guidance. I have discontinued baclofen secondary to the patient having side effects, and we will re-institute Flexeril 10 mg pills, one pill t.i.d. as tolerated. Her STACY on today's visit was 31. As part of providing excellent, safe, comprehensive care, the following was completed at our patient's visit: 1. A medication reconciliation and review to ensure accurate knowledge of current/active medications, including asking our patients to inform us about any [id number] medications or herbal remedies/nutritional supplements/alternative remedies. 2. A review to specifically ensure our patients have had annual screening for: elevated body mass index (BMI, see intake chart for exact total), tobacco use, screening for depression, and screening for unhealthy alcohol use. When screening is concerning, patients are provided with education and the specific recommendation to discuss the concerning health issue and treatment options with their primary care provider.[facility] [id number] Note CONSULTATION CONSULTATION DATE: 10/24/2022 ADDENDUM: PROCEDURE: Bilateral facet joint injection L4-5, L5-S1 (not just left sided facet joint injection at L4-5, L5-S1).[facility] [id number] Note CONSULTATION CONSULTATION DATE: 09/26/2022 TO: Dr. Amaya CHIEF COMPLAINT: Includes severe lower back pain, worse on the right than left side. HISTORY OF PRESENT ILLNESS: She reports it rating 5-7/10 pain, sharp in character, increasing with activities such as standing, walking, performing transitioning maneuvers. On today's visit, she denies any change in bowel and bladder habits or new sensorimotor changes of the lower extremities. In fact, on today's visit, she is not complaining of any pain in her lower extremities. She is complaining of mainly pain in her lower back, radiating to her hip area. She reports the pain being exacerbated with standing and walking and performing transitioning maneuvers. She feels most comfortable in the semi-recumbent position. She denies any change in bowel and bladder habits. She lower extremities. EXAM: Notable for the patient having no clinical radiculopathy or myelopathy on today's visit, involving her lower extremities. The patient did have severe pain with lumbar facet loading maneuvers occurring worse on the right than the left side, from L4 through S1, with associated myofascial spasm of the lumbar paravertebral muscles occurring bilaterally as well. She had nothing to suggest SI joint dysfunction on today's visit. She had only marginal pain with lumbar axial loading maneuvers. IMAGING: We did review her lumbosacral MRI performed on 01/10/2022. The result reads: L4-5 disc desiccation with protrusion; however, no central canal or foraminal stenosis was noted on MRI, at least nothing was significant and, to my interpretation, again I did not feel there was any neural compromise appreciated on her imaging study. IMPRESSION: Patient with chronic pain secondary to lumbosacral spondylosis with facet loading pain clinically, occurring bilaterally, worse on the right than left side at L4-5, L5-S1, with associated myofascial dysfunction. RECOMMENDATIONS: I have placed her on baclofen. Discontinue Flexeril. She reports it seems to have stopped working . I have also recommended proceeding with diagnostic bilateral L4-5, L5-S1 facet joint injection under fluoroscopy. I have gone over the details of proceeding with the patient. All her questions were answered. She agrees to proceed with the outlined plan. Of note, her Oswestry scale was 35.[facility] [id number] NoteCONSULTATION CONSULTATION DATE: 08/22/2022 CHIEF COMPLAINT: Low back pain, bilateral thigh pain. HISTORY OF PRESENT ILLNESS: This is a 42-year-old female who was referred to us by Dr. Amaya. The patient has had pain for 1+ years. The patient has an MRI which was reviewed in office today. The patient reports low back pain radiating bilaterally along the buttocks and the posterior aspect of her thigh. She rates it as an 8/10; an achy, sharp pain. Activities such as twisting, pushing, standing, transitioning, vacuuming, bending, climbing stairs, activities aggravate the patient's pain. Cold weather also aggravates. The patient's functional scale is 32, elevated. The patient has taken NSAIDs in the patient, nabumetone, without success and GI distress. The patient has an issue with narcolepsy and sleep disorder and, as such, could not tolerate muscle relaxants very well. The patient currently takes Excedrin on a p.r.n. basis, Lyrica 300 mg b.i.d., Prozac 20 mg, Wellbutrin daily and medical marijuana. The patient is a heavy smoker. The patient's PAST MEDICAL HISTORY / SURGICAL HISTORY / REVIEW OF SYSTEMS are noted on the chart, along with the MEDICATION LIST / ALLERGIES and RADIOLOGICAL IMAGES. Of note is the fact that the patient was seen by Dr. Ady Dhaliwal in [place], referred by Dr. Amaya, and had received an epidural injection approximately 8-9 months ago. She states it helped; however, Dr. Dhaliwal has since left the practice and, as such, the patient has been referred here. PHYSICAL EXAM: Upon physical examination, this is a pleasant, 41-year-old female, who has a significant smoker's voice and heavy tobacco smell. VITAL SIGNS: 127/81 with a heart rate of 104. At a height of 5'9 , the patient weighs 198 pounds. HEENT: Atraumatic, normocephalic. The patient has xerostomia. NECK: Bullous. HEART: Negative orthopnea. LUNGS: Smoker's voice, smoker's cough. ABDOMEN: Protuberant, distended. BACK: Loss of lumbar lordosis is noted. Extension, compression, direct palpation along the posterior elements aggravate and reproduce the patient's pain symptomatology concordant with facet arthropathy, lumbar spondylosis. Paravertebral spasming is present. EXTREMITIES: Slight clubbing of the digits are noted. Significant tattooing in her upper extremities. MUSCULOSKELETAL: Intact in the lower extremities at 4+/5 bilaterally. NEUROLOGICALLY: No clear cut radicular symptomatology is noted. PSYCHIATRICALLY: Affect is appropriate; however, concerns are of underlying psychogenic factors that may be also contributing to the patient's pain symptomatology or the degree of pain and dysfunction that the patient has. IMPRESSION: Current working diagnosis on the patient is chronic low back pain, lumbar degenerative disc disease, lumbar disc bulging at the level of L5-S1, lumbar spondylosis, psychogenic factors, history of narcolepsy sleep disorder, high tobacco usage. PLAN: Multivitamins have been suggested to the patient, along with magnesium glycinate. The majority of the patient's pain symptomatology appears to be from the facet region; as such, a diagnostic lumbar medial branch block at the level of L2, L3 and L4, L5 will be performed. Should that have success, education was given to the patient as to our goals. The patient was encouraged in strong terms with regards to smoking cessation. The patient understands and would like to proceed. CC: Sandra Amaya M.D.[facility] [id number] NoteHOSPITAL REGULATIONS: All Positive and Important Negative Findings Shall Be Recorded Date of Consultation: 03/14/2022 Attending Physician: Sandra Amaya M.D. Consulting Physician: Juan F Day M.D. CHIEF COMPLAINT:Right worse than left low back pain. HISTORY OF PRESENT ILLNESS:A 42 year old female, right hand dominant. She is on disability for narcolepsy and she has fibromyalgia. 15 year history of significant low back pain. She states over the last several months it has been more consistent. 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 She denies any lower extremity symptoms. She denies any bowel or bladder symptoms. She denies any numbness or tingling in her hands. She denies any clumsiness in her hands. She denies clumsiness in her gait. She states she has had 5 or 6 pain procedures which did not help her symptoms. This was done elsewhere. She does not know if she has ever had a lumbar epidural steroid injection. She does not know if she has ever had a caudal injection. PAST MEDICAL, PAST SURGICAL, MEDICATIONS, ALLERGIES, SOCIAL HISTORY, REVIEW OF SYMPTOMS AND FAMILY HISTORY: Please refer to the scanned new patient questionnaire for these. Of note, the patient is a smoker. PHYSICAL EXAMINATION: General: She is alert and oriented x3, in no acute distress. Lower extremities: She rises from a seated position without difficulty. She can heel walk, toe walkand tandem walk without difficulty. She gets on and off the examination room table without difficulty. 5/5 all muscle groups bilateral lower extremities. Sensation is globally intact to light touch L2-S1 dermatomes. Negative straight leg raise bilaterally. Deep tendon reflexes are normoactive and equal in her knee jerk and ankle jerk. She has no clonus. Full non-tender range of motion bilateral hips, knees and ankles. Upper extremities: 5/5 sensation is intact. Deep tendon reflexes are normoactive and equal and negative Christopher's signs. Full non-tender range of motion bilateral shoulders, elbows, wrists. Spine: Cervical spine range of motion is full, non-tender. Negative Lhermitte's. Negative foraminalcompression sign. Lumbar spine range of motion is limited in all planes secondary to subjective pain. INVESTIGATIONS: Magnetic resonance imaging of her lumbar spine performed February 2022 shows fairly well maintained disc heights except for L5-S1. She has a broad based disc bulge without any significant compression of the neurologic elements. IMPRESSION:42 year old female smoker discogenic low back pain. No signs or symptoms of myelopathy or radiculopathy. PLAN:I told the patient low back surgery has never been proven more effective than conservative treatment for low back pain. I told her not to continue going to see the pain doctor if the procedures here she does does not help her. I offered her to see our pain management doctors. I told her the only operation that could help her if she stops smoking is a L5-S1 fusion but if she has a L5- S1 fusion at 42 she is nearly 100% chance of having more surgery down the road. Again, I told her I do not offer low back surgery without radiculopathy or myelopathy. I think she should add a nonsteroidal anti-inflammatory to her treatment regimen and I offered her to see our pain management doctors if she w ants to. She can follow up [email or web address]. Juan F Day M.D. 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 Medical History endometriosis Medical History hypothyroidism Medical History Psychophysiologic insomnia Medical History Insomnia due to drug Surgical History No Surgical history information Hospitalization History No Hospitalization histo ry information [facility] [employer] Other 02-01-2019 History general Narrative - Reported* Type Description Date Medical History bipolar type 1 Medical History sleep phase delay Medical History 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 hx. [facility] [employer] Other Evaluation + Plan note No data available for this section [facility] noteNo InformationN[facility] [employer] Other Evaluation note* Diagnosis Onset Date Resolution Status Bilateral sacroiliitis acute Chronic pain acute Other spondylosis with radiculopathy, lumbar region acute Trochanteric bursitis [facility] Work Phone: Hospital Discharge instructions No data available for this section [facility] No data available for this section [facility] Summary Purpose Family History No Family History Records FoundNo Family History Records FoundNo Family History Records FoundNo Family History Records Found Advance Directives Advance Directive Response Recorded Date/ Time Advance Directives No August 24, 2017 10:50am Reason for Referral Reason long standing hx of lumbar pain, pt requesting eval for breast reduction Diagnosis 1 Other low back pain (M54.59) Referral Organization [facility] Referring Provider First Name Bertin Referring Provider Last Name Rosie Referring Provider Specialty Pain Medici ne Referred Provider Rivera Blair Referred Provider Specialty Plastic and Reconstructive Surgery Referral Priority Routine Chief Complaint and Reason for Visit Chief Complaint 4 Month Follow Up Reason for Visit Bilateral sacroiliit is Chronic pain Other spondylosis with radiculopathy, lumbar region Trochanteric bursitis Additional Source Comments INFORMATION SOURCE (unrecogn ized section and content) DATE CREATED AUTHOR 03/13/2019 [facility] DATE CREATED AUTHOR AUTHOR'S ORGANIZ ATION 03/19/2022 [facility] DATE CREATED AUTHOR AUTHOR'S ORGANIZ ATION 03/21/2022 [facility] DATE CREATED AUTHOR AUTHOR'S ORGANIZ ATION 11/15/2022 [facility] Care Team (unrecognized sect ion and content) Team Status: Active Member Role Status Dates Sandra Amaya MD Primary Care Provider Active Team Status: Inactive Member Role Status Dates Sandra Amaya MD Primary Care Provider Active Start: November 13, 2023 End: November 13, 2023 Bertin Velez MD Attending Provider Active Sta rt: November 13, 2023 End: November 13, 2023 REASON FOR VISIT (unrecogniz ed section and content) SWOLLEN GLANDREF BY DR CORRINA VALENZUELA FOR BILATERAL SI INFLAMMATION, RIGHT TROCHANTERIC BURSITISPain Medicine Office NotesNo InformationCEASAR SI JOINT INJECTION AND RIGHT TROCH BURSA INJECTION /VWF/U CEASAR SI JOINT INJECTION AND RIGHT TROCH BURSA INJECTION4 MONTH FOLLOW UPLUMBAR EPIDURAL STEROID INJECTION L4 L5 /VWF/U LUMBAR EPIDURAL STEROID INJECTIONprocedureCEASAR SI JOINT INJECTIONS AND RIGHT TROCH BURSA INJECTION /VW Goals (unrecognized section and content) Goals may be documented in a n alternate section FOR RECORDS PERTAINING TO PATIENTS WHO ARE OR HAVE BEEN ENROLLED IN A CHEMICAL DEPENDENCY/SUBSTANCEABUSE PROGRAM, SOME INFORMATION MAY BE OMITTED. This clinical summary was aggregated from multiple sources. Caution should be exercised in using it in the provision of clinical care. This summary normalizes information from multiple sources, and as a consequence, information in this document may materially change the coding, format and clinical context of patient data. In addition, data may be omitted in some cases. CLINICAL DECISIONS SHOULD BE BASED ON THE PRIMARY CLINICAL RECORDS. [facility] provides no warranty or guarantee of the accuracy or completeness of information in this document.
== END 2024-01-14 10:49 | disposition home or self-care (01) ==
LOC: EC 10:48
PROVIDERS: PCP Family Medicine; Visit Provider Orthopaedic Surgery
DX: M25.531 Pain in right wrist (principal)
CPT/HCPCS: 73110

== ENCOUNTER 2024-05-02 12:15 | Outpatient (OUT) | payer MEDICARE, MEDICAID, SELFPAY ==
--- OUTSIDE RECORDS SUMMARY | 2024-05-02 12:21 | XMS_ITS | CCD ---
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 Role Phone Sandra Amaya Primary Care [...] DR FLORES Attending Unavailable HOY ., DR FLOERS Admitting Unavailable HOY ., DR FLORES Consulting [...] vailable GRECHNY ., DORCAS FERNANDEZ Consulting Unavailabl e JULIAN ., COOKIE Attending Unavailable JULIAN ., COOKIE [...] HOY ., DR FLORES Primary Care Unavailable HAY ., DR ELLIS Consulting Unavailable Bertin Velez Unavailable DAVON OJEDA Attending Unavailable DAVON OJEDA Attending Unavailable Medications Current Medications Medication Drug Class(es) [...] Start Date: 03/14/22 Status: Ordered Flexeril Active diclofenac sodium 75 mg delayed release oral tablet (14 sources) Nonsteroidal Anti-inflammatory Drug Start: 03-18-2024 Diclofenac Sodium Active 75 MG PO March 18, 2024 12:00am take 1 tablet by gino th every twenty-four hours Diclofenac Sodium 75 mg 1 tablet with fo od or milk Orally once daily Not-Taking/PRN empagliflozin 10 mg oral tablet (3 sources) Sodium-Glucose Cotransporter 2 Inhibitor Start: 03-18-2024 Empagliflozin (Jardiance) 10 mg tablet Active 10 MG PO March 18, 2024 12:00am estradiol 1 mg oral tablet (3 sources) Estrogen Start: 03-18-2024 Estradiol Acti ve 1 MG PO March 18, 2024 12:00am fluconazole 100 mg oral tablet (3 sources) Azole Antifungal Start: 03-18-2024 Fluconazole A ctive 100 MG PO March 18, 2024 12:00am FLUoxetine 40 mg oral capsule (13 sources) Serotonin Reuptake Inhibitor Start: 03-18-2024 Fluoxetine Active 40 MG PO March 18, 2024 12:00am take 1 capsule by mo [facility] every twenty-four hours PROzac 40 MG 1 capsule Orally Once a day Active levothyroxine sodium 0.112 mg oral tablet (20 sources) l-Thyroxine Start: 03-18-2024 Levothyroxine Active 112 MCG PO March 18, 2024 12:00am Start: 03-14-2022 take 1 tablet by gino th once daily levothyroxine 125 mcg (0.125 mg) Tab 125 mcg = 1 tab(s), Oral, Daily, Refills(s) 0 Start Date: 03/14/22 Status: Ordered Start: 12-04-2019 take 1 tablet by gino th once daily in the morning Synthroid 100 MCG 1 tablet in the morning on an empty stomach Orally Once a day for 30 day(s) November, Active Start: 12-04-2019 take 1 tablet by gino once daily in the morning Synthroid 100 MCG 1 tablet in the morning on an empty stomach Orally Once a day for 30 day(s) November, Active liothyronine (13 sources) l-Triiodothyronine Start: 03-18-2024 Liothyronin e Active 5 MCG PO March 18, 2024 12:00am take 1 tablet by gino every twenty-four hours Cytomel 25 MCG 1 tablet on an empty stomach Orally Once a day Active take 1 tablet by gino th every twenty-four hours Cytomel 25 MCG 1 tablet on an empty stomach Orally Once a day Active omeprazole 40 mg delayed release oral capsule (13 sources) Proton Pump Inhibitor Start: 03-18-2024 Omeprazo le Active 40 MG PO March 18, 2024 12:00am take 1 capsule by mouth once kendra ly Omeprazole 40 MG 1 capsule 30 minutes before morning meal Orally Once a day Active pantoprazole 40 mg delayed release oral tablet (1 source) Proton Pump Inhibitor Start: 03-14-2022 take 1 tablet by mouth once daily Pantoprazole [address] Tab 40 mg = 1 tab(s), Oral, Daily, Refills(s) 0 Start Date: 03/14/22 Status: Ordered predniSONE 20 mg oral tablet (3 sources) Start: 03-18-2024 Prednisone Act odilon 20 MG PO March 18, 2024 12:00am pregabalin 300 mg oral capsule (15 sources) Start: 03-18-2024 Pregabalin Act odilon 300 MG PO March 18, 2024 12:00am Start: 03-14-2022 take 1 capsule by mo [facility] twice daily pregabalin 300 mg Cap 300 mg = 1 cap(s), Oral, BID, Refills(s) 0 Start Date: 03/14/22 Status: Ordered tiZANidine 4 mg oral tablet (3 sources) Central alpha-2 Adrenergic Agonist Start: 03-18-2024 Tizanidine Active 4 MG PO March 18, 2024 12:00am {20 (nirmatrelvir 150 MG Oral Tablet) / 10 (ritonavir 100 MG Oral Tablet) } Pack [Paxlovid 5-Day] (1 source) Start: 03-14-2022 Paxlovid 150 m g-100 mg oral tablet See Instructions, Refill(s) 0 Start Date: 03/14/22 Status: Ordered Completed/Discontinued Medications Medication Drug Class(es) Dates Sig (Normalized) Sig (Original) Cephalexin (11 sources) Cephalosporin Antibacterial Cephalexin Not-Taking/PRN Cephalexin Not-T aking estrogens, conjugated ([facility]) 0.3 mg oral tablet (11 sources) Estrogen Premarin 0.3 MG 1 tablet Orally Daily for Three Weeks, 1 Week off not sure of dose Not-Taking/PRN Sulfamethoxazole / Trimethoprim (11 sources) Dihydrofolate Reductase Inhibitor Antibacterial, Sulfonamide Antimicrobial Bactrim Not-Ta tomy/PRN Bactrim Not-Taki ng Problems Active Problems Problem Classification Problem Date Documented Da te Episodic/Chronic Acute and chronic tonsillitis (11 sources) Large tonsils; Translations: [Hypertrophy of tonsils] Chronic Alcohol-related disorders (20 sources) Alcohol abuse; Translations: [Alcohol abuse, uncomplicated] 03-18-2024 Chronic Asthma (5 sources) Asthma; Translations: [Unspecified asthma, uncomplicated] Onset: 2 03-14-2022 Chronic Cardiac dysrhythmias (1 source) Tachycardia 03-14-2022 Episodic Disorders of lipid metabolism (1 source) Hyperlipidemia, unspecified; Translations: [HYPERLIPIDEMIA UNSPECIFIED] Onset: 2 Chronic Endometriosis (4 sources) Endometriosis (clinical); Translations: [Endometriosis, unspecified] 03-14-2022 Chronic Esophageal disorders (6 sources) Gastroesophageal reflux disease; Translations: [Gastro-esophageal reflux disease without esophagitis] Onset: 2 03-14-2022 Chronic Miscellaneous mental health disorders (12 sources) Psychophysiologic insomnia; Translations: [Disorders of initiating and maintaining sleep] 03-14-2022 Chronic Mood disorders (15 sources) Bipolar I disorder; Translations: [Bipolar disorder, unspecified] 03-14-2022 Chronic Other acquired deformities (10 sources) Lumbar spondylolisthesis; Translations: [Spondylolisthesis, lumbar region] Episodic Other aftercare (5 sources) Other terminal gauger (current) drug therapy; Translations: [OTH COLLECTION SYSTEMS WORKER CURRENT DRUG THERAPY] Onset: 2 Episodic Other connective tissue disease (15 sources) Fibromyalgia; Translations: [Fibromyalgia] 03-14-2022 Episodic Other connective tissue disease (1 source) Other muscle spasm; Translations: [OTHER MUSCLE SPASM] Onset: 3 Episodic Other connective tissue disease (10 sources) Enthesopathy of hip region; Translations: [Trochanteric bursitis, right hip] Episodic Other connective tissue disease (7 sources) Trochanteric bursitis, unspecified hip; Translations: [Enthesopathy of hip region] Episodic Other connective tissue disease (5 sources) Trochanteric bursitis; Translations: [Trochanteric bursitis, unspecified hip] Episodic Other connective tissue disease (5 sources) Bursitis of hip; Translations: [Trochanteric bursitis, unspecified hip] 11-02-2023 Episodic Other gastrointestinal disorders (1 source) Irritable bowel syndrome 03-14-2022 Chronic Other inflammatory condition of skin (1 source) Rosacea 03-14-2022 Chronic Other nervous system disorders (1 source) Carpal tunnel syndrome 03-14-2022 Chronic Other nervous system disorders (1 source) Cataplexy and narcolepsy 03-14-2022 Chronic Other nervous system disorders (14 sources) Cataplexy; Translations: [Narcolepsy with cataplexy] 03-18-2024 Chronic Other nervous system disorders (11 sources) Sleep-wake schedule disorder, delayed phase type; Translations: [Circadian rhythm sleep disorder, 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 Normal [facility] Comment on above: Performed By: #### D SDOALC #### [facility] [address] [address] [address] Kareem Urbina Summary FINAL Normal [facility] Comment on above: Result Comment: === [...] test is not intended to distinguish between [id number], the predominant form of THC in most herbal or marijuana-based products, and [id number]. === Test Result Flag Units Ref Range [...] === Performed By: #### D SDOALC #### [facility] [address] [place] [address] Dr. Kareem Urbina URIC ACID RAND URINEon 09-21 Uric Acid, Urine 98.4 mg/dL Normal Not Estab. [facility] Comment on above: Performed By: #### T 4LC, HPYLLC #### [facility] [address] [address] [address] Kareem Urbina DRUG SCREEN RAPID (URINE)on 09-20-2022 AMP Negative Normal NEGATIVE [facility] Comment on above: Performed By: #### T 4LC, HPYLLC #### [facility] [address] [place] [address] Dr. Kareem Urbina BAR Negative Normal NEGATIVE [facility] Comment on above: Performed By: #### T 4LC, HPYLLC #### [facility] [address] [address] [address] Kareem Urbina BUP Negative Normal NEGATIVE [facility] Comment on above: Performed By: #### T 4LC, HPYLLC #### [facility] [address] [place] [address] Dr. Kareem Urbina BZO Positive Abnormal NEGATIVE [facility] Comment on above: Performed By: #### T 4LC, HPYLLC #### [facility] [address] [place] [address] Dr. Kareem Urbina LISETTE Negative Normal NEGATIVE [facility] Comment on above: Performed By: #### T 4LC, HPYLLC #### [facility] [address] [place] [address] Dr. Kareem Urbina CUT-OFFS SEE BELOW Normal [facility] Comment on above: Result Comment: AMP (Amphetamine): [...] Performed By: #### T 4LC, HPYLLC #### [facility] [address] [place] [address] Dr. Kareem Urbina DRUG CUT HEADER DRUG CLASS TEST SYST EM CUT-OFF CONCENTRATIONS ARE FOLLOWS: Normal [facility] Comment on above: Performed By: #### T 4LC, HPYLLC #### [facility] [address] [place] [address] Dr. Kareem Urbina mAMP Negative Normal NEGATIVE [facility] Comment on above: Performed By: #### T 4LC, HPYLLC #### [facility] [address] [address] [address] Kareem Urbina MTD Negative Normal NEGATIVE [facility] Comment on above: Performed By: #### T 4LC, HPYLLC #### [facility] [address] [address] [address] Kareem Urbina OPI Negative Normal NEGATIVE [facility] Comment on above: Performed By: #### T 4LC, HPYLLC #### [facility] [address] [place] [address] Dr. Kareem Urbina OXY Negative Normal NEGATIVE [facility] Comment on above: Performed By: #### T 4LC, HPYLLC #### [facility] [address] [place] [address] Dr. Kareem Urbina PCP Negative Normal NEGATIVE [facility] Comment on above: Performed By: #### T 4LC, HPYLLC #### [facility] [address] [address] [address] Kareem Urbina PPX Negative Normal NEGATIVE [facility] Comment on above: Performed By: #### T 4LC, HPYLLC #### [facility] [address] [place] [address] Dr. Kareem Urbina TCA Positive Abnormal NEGATIVE [facility] Comment on above: Performed By: #### T 4LC, HPYLLC #### [facility] [address] [address] [address] Kareem Urbina THC Positive Abnormal NEGATIVE [facility] Comment on above: Performed By: #### T 4LC, HPYLLC #### [facility] [address] [place] [address] Dr. Kareem Urbina CBC AUTO DIFFon 08-19-2022 BASO # 0.1 103/ul Normal 0.0-0.1 [facility] Comment on above: Performed By: #### T 4LC, HPYLLC #### [facility] [address] [place] [address] Dr. Kareem Urbina Basophils/100 WBC (Bld) 0.6 % Normal 0.2-2.0 [facility] Comment on above: Performed By: #### T 4LC, HPYLLC #### [facility] [address] [place] [address] Dr. Kareem Urbina EO # 0.2 103/ul Normal 0.0-0.7 [facility] Comment on above: Performed By: #### T 4LC, HPYLLC #### [facility] [address] [place] [address] Dr. Kareem Urbina Eosinophils/100 WBC (Bld) 2.1 % Normal 0.9-7.0 [facility] Comment on above: Performed By: #### T 4LC, HPYLLC #### [facility] [address] [place] [address] Dr. Kareem Urbina Erythrocyte distribution width (RBC) [Ratio] 15.8 % Critically high 11.0-15.0 [facility] Comment on above: Performed By: #### T 4LC, HPYLLC #### [facility] [address] [place] [address] Dr. Kareem Urbina Hematocrit (Bld) [Volume fraction] 36.3 % Normal 36.0-48.0 [facility] Comment on above: Performed By: #### T 4LC, HPYLLC #### [facility] [address] [place] [address] Dr. Kareem Urbina Hemoglobin (Bld) [Mass/Vol] 12.1 g/dL Normal 12.0-16.0 [facility] Comment on above: Performed By: #### T 4LC, HPYLLC #### [facility] [address] [place] [address] Dr. Kareem Urbina IG # 0.05 10e3/ul Critically high 0.00-0.03 [facility] Comment on above: Performed By: #### T 4LC, HPYLLC #### [facility] [address] [address] [address] Kareem Urbina IG % 0.5 % Normal 0.0-0.5 [facility] Comment on above: Performed By: #### T 4LC, HPYLLC #### [facility] [address] [address] [address] Kareem Urbina LYMPH # 2.3 103/ul Normal 1.2-3.8 [facility] Comment on above: Performed By: #### T 4LC, HPYLLC #### [facility] [address] [address] [address] Kareem Urbina Lymphocytes/100 WBC (Bld) 24.0 % Normal 20.5-60.0 [facility] Comment on above: Performed By: #### T 4LC, HPYLLC #### [facility] [address] [place] [address] Dr. Kareem Urbina MANUAL DIFF REQ NO Normal [facility] Comment on above: Performed By: #### T 4LC, HPYLLC #### [facility] [address] [address] [address] Kareem Urbina MCH (RBC) [Entitic mass] 24.4 pg Critically low 26.7-34.0 [facility] Comment on above: Performed By: #### T 4LC, HPYLLC #### [facility] [address] [place] [address] Dr. Kareem Urbina MCHC (RBC) [Mass/Vol] 33.3 g/dL Normal 29.9-35.2 [facility] Comment on above: Performed By: #### T 4LC, HPYLLC #### [facility] [address] [address] [address] Kareem Urbina MCV (RBC) [Entitic vol] 73.3 fL Critically low 81.0-99.0 [facility] Comment on above: Performed By: #### T 4LC, HPYLLC #### [facility] [address] [address] [address] Kareem Urbina MONO # 0.4 103/ul Normal 0.3-0.8 [facility] Comment on above: Performed By: #### T 4LC, HPYLLC #### [facility] [address] [place] [address] Dr. Kareem Urbina Monocytes/100 WBC (Bld) 4.4 % Normal 1.7-12.0 [facility] Comment on above: Performed By: #### T 4LC, HPYLLC #### [facility] [address] [place] [address] Dr. Kareem Urbina NEUT # 6.7 103/ul Critically high 1.4-6.5 [facility] Comment on above: Performed By: #### T 4LC, HPYLLC #### [facility] [address] [place] [address] Dr. Kareem Urbina Neutrophils/100 WBC (Bld) 68.4 % Normal 43.0-75.0 [facility] Comment on above: Performed By: #### T 4LC HPYLLC #### [facility] [address] [place] [address] Dr. Kareem Urbina Platelet mean volume (Bld) [Entitic vol] 9.9 fL Normal 9.5-13.5 [facility] Comment on above: Performed By: #### T 4LC, HPYLLC #### [facility] [address] [place] [address] Dr. Kareem Urbina PLT 346 103/ul Normal 150-450 [facility] Comment on above: Performed By: #### T 4LC, HPYLLC #### [facility] [address] [place] [address] Dr. Kareem Urbina RBC 4.95 106/ul Normal 4.20-5.40 [facility] Comment on above: Performed By: #### T 4LC, HPYLLC #### [facility] [address] [place] [address] Dr. Kareem Urbina WBC 9.7 103/ul Normal 4.0-11.0 [facility] Comment on above: Performed By: #### T 4LC, HPYLLC #### [facility] [address] [place] [address] Dr. Kareem Urbina FREE THYROXINE INDEX T7on FTI 3.26 Normal 1.30-4.50 [facility] Comment on above: Performed By: #### C BC #### [facility] [address] [place] [address] Dr. Kareem Urbina T3U 32.0 % Normal 30.0-39.0 [facility] Comment on above: Performed By: #### C BC #### [facility] [address] [place] [address] Dr. Kareem Urbina T4 [Mass/Vol] 10.20 ug/dL Normal 4.80-13.90 [facility] Comment on above: Performed By: #### C BC #### [facility] [address] [place] [address] Dr. Kareem Urbina PROF 14(COMP METB)on 023 Albumin [Mass/Vol] 3.4 g/dL Normal 3.4-5.0 [facility] Comment on above: Performed By: #### C BC #### [facility] [address] [place] [address] Dr. Kareem Urbina Albumin/Globulin [Mass ratio] 0.8 {ratio} Normal [facility] Comment on above: Performed By: #### C BC #### [facility] [address] [place] [address] Dr. Kareem Urbina ALP [Catalytic activity/Vol] 111 U/L Normal 46-116 [facility] Comment on above: Performed By: #### C BC #### [facility] [address] [place] [address] Dr. Kareem Urbina ALT [Catalytic activity/Vol] 31 U/L Normal 14-59 [facility] Comment on above: Performed By: #### C BC #### [facility] [address] [place] [address] Dr. Kareem Urbina Anion gap [Moles/Vol] 12.3 mmol/L Normal [facility] Comment on above: Performed By: #### C BC #### [facility] [address] [place] [address] Dr. Kareem Urbina AST [Catalytic activity/Vol] 22 U/L Normal 15-37 [facility] Comment on above: Performed By: #### C BC #### [facility] [address] [place] [address] Dr. Kareem Urbina Bilirubin [Mass/Vol] 0.2 mg/dL Normal 0.2-1.0 [facility] Comment on above: Performed By: #### C BC #### [facility] [address] [place] [address] Dr. Kareem Urbina Calcium [Mass/Vol] 9.2 mg/dL Normal 8.5-10.1 [facility] Comment on above: Performed By: #### C BC #### [facility] [address] [place] [address] Dr. Kareem Urbina Chloride [Moles/Vol] 102 mmol/L Normal 98-107 [facility] Comment on above: Performed By: #### C BC #### [facility] [address] [place] [address] Dr. Kareem Urbina CO2 [Moles/Vol] 27.7 mmol/L Normal 21.0-32.0 [facility] Comment on above: Performed By: #### C BC #### [facility] [address] [place] [address] Dr. Kareem Urbina Creatinine [Mass/Vol] 0.84 mg/dL Normal 0.55-1.02 [facility] Comment on above: Performed By: #### C BC #### [facility] [address] [place] [address] Dr. Kareem Urbina EGFR-AF CYMRO >60 Normal >=60 [facility] Comment on above: Performed By: #### C BC #### [facility] [address] [place] [address] Dr. Kareem Urbina EGFR-NON AF CYMRO >60 Normal >=60 [facility] Comment on above: Performed By: #### C BC #### [facility] [address] [place] [address] Dr. Kareem Urbina Globulin (S) [Mass/Vol] 4.2 g/dL Normal [facility] Comment on above: Performed By: #### C BC #### [facility] [address] [address] [address] Kareem Urbina Glucose [Mass/Vol] 107 mg/dL Critically high 74-106 [facility] Comment on above: Performed By: #### C BC #### [facility] [address] [address] [address] Kareem Urbina Potassium [Moles/Vol] 4.0 mmol/L Normal 3.5-5.1 [facility] Comment on above: Performed By: #### C BC #### [facility] [address] [address] [address] Kareem Urbina Protein [Mass/Vol] 7.6 g/dL Normal 6.4-8.2 [facility] Comment on above: Performed By: #### C BC #### [facility] [address] [address] [address] Kareem Urbina Sodium [Moles/Vol] 138 mmol/L Normal 136-145 [facility] Comment on above: Performed By: #### C BC #### [facility] [address] [address] [address] Kareem Urbina Urea nitrogen [Mass/Vol] 11.0 mg/dL Normal 7.0-18.0 [facility] Comment on above: Performed By: #### C BC #### [facility] [address] [address] [address] Kareem Urbina Urea nitrogen/Creatinine [Mass ratio] 13.1 mg/mg Normal [facility] Comment on above: Performed By: #### C BC #### [facility] [address] [address] [address] Kareem Urbina TSHon 08-19-2022 TSH 0.062 uIU/mL Critically low 0.358-3.740 [facility] Comment on above: Performed By: #### C BC #### [facility] [address] [address] [address] LUNG CANCER SCREENINGon 08-01-2021 CT LUNG CANCER SCREENING EXAMINATION: CT [...] by: ALIZE BENTON Date: 2022-06-01 16:24 Normal [facility] CBC AUTO DIFFon 05-17-2022 BASO # 0.0 103/ul Normal 0.0-0.1 [facility] Comment on above: Performed By: #### C BC #### [facility] [address] [address] [address] Kareem Urbina Basophils/100 WBC (Bld) 0.4 % Normal 0.2-2.0 [facility] Comment on above: Performed By: #### C BC #### [facility] [address] [address] [address] Kareem Urbina EO # 0.1 103/ul Normal 0.0-0.7 [facility] Comment on above: Performed By: #### C BC #### [facility] [address] [address] [address] Kareem Urbina Eosinophils/100 WBC (Bld) 1.2 % Normal 0.9-7.0 [facility] Comment on above: Performed By: #### C BC #### [facility] [address] [place] [address] Dr. Kareem Urbina Erythrocyte distribution width (RBC) [Ratio] 15.0 % Normal 11.0-15.0 [facility] Comment on above: Performed By: #### C BC #### [facility] [address] [place] [address] Dr. Kareem Urbina Hematocrit (Bld) [Volume fraction] 37.0 % Normal 36.0-48.0 [facility] Comment on above: Performed By: #### C BC #### [facility] [address] [place] [address] Dr. Kareem Urbina Hemoglobin (Bld) [Mass/Vol] 12.0 g/dL Normal 12.0-16.0 [facility] Comment on above: Performed By: #### C BC #### [facility] [address] [place] [address] Dr. Kareem Urbina IG # 0.03 10e3/ul Normal 0.00-0.03 [facility] Comment on above: Performed By: #### C BC #### [facility] [address] [place] [address] Dr. Kareem Urbina IG % 0.3 % Normal 0.0-0.5 [facility] Comment on above: Performed By: #### C BC #### [facility] [address] [place] [address] Dr. Kareem Urbina LYMPH # 2.3 103/ul Normal 1.2-3.8 [facility] Comment on above: Performed By: #### C BC #### [facility] [address] [place] [address] Dr. Kareem Urbina Lymphocytes/100 WBC (Bld) 20.6 % Normal 20.5-60.0 [facility] Comment on above: Performed By: #### C BC #### [facility] [address] [place] [address] Dr. Kareem Urbina MANUAL DIFF REQ NO Normal [facility] Comment on above: Performed By: #### C BC #### [facility] [address] [place] [address] Dr. Kareem Urbina MCH (RBC) [Entitic mass] 26.4 pg Critically low 26.7-34.0 [facility] Comment on above: Performed By: #### C BC #### [facility] [address] [address] [address] Kareem Urbina MCHC (RBC) [Mass/Vol] 32.4 g/dL Normal 29.9-35.2 [facility] Comment on above: Performed By: #### C BC #### [facility] [address] [address] [address] Kareem Urbina MCV (RBC) [Entitic vol] 81.5 fL Normal 81.0-99.0 [facility] Comment on above: Performed By: #### C BC #### [facility] [address] [address] [address] Kareem Urbina MONO # 0.5 103/ul Normal 0.3-0.8 [facility] Comment on above: Performed By: #### C BC #### [facility] [address] [place] [address] Dr. Kareem Urbina Monocytes/100 WBC (Bld) 4.7 % Normal 1.7-12.0 [facility] Comment on above: Performed By: #### C BC #### [facility] [address] [address] [address] Kareem Urbina NEUT # 8.1 103/ul Critically high 1.4-6.5 [facility] Comment on above: Performed By: #### C BC #### [facility] [address] [place] [address] Dr. Kareem Urbina Neutrophils/100 WBC (Bld) 72.8 % Normal 43.0-75.0 [facility] Comment on above: Performed By: #### C BC #### [facility] [address] [address] [address] Kareem Urbina Platelet mean volume (Bld) [Entitic vol] 10.5 fL Normal 9.5-13.5 [facility] Comment on above: Performed By: #### C BC #### [facility] [address] [address] [address] Kareem Urbina PLT 342 103/ul Normal 150-450 [facility] Comment on above: Performed By: #### C BC #### [facility] [address] [address] [address] Kareem Urbina RBC 4.54 106/ul Normal 4.20-5.40 [facility] Comment on above: Performed By: #### C BC #### [facility] [address] [address] [address] Kareem Urbina WBC 11.1 103/ul Critically high 4.0-11.0 [facility] Comment on above: Performed By: #### C BC #### [facility] [address] [address] [address] Kareem Urbina FREE THYROXINE INDEX T7on FTI 4.90 Critically high 1.30-4.50 [facility] Comment on above: Performed By: #### C BC #### [facility] [address] [address] [address] Kareem Urbina T3U 35.0 % Normal 30.0-39.0 [facility] Comment on above: Performed By: #### C BC #### [facility] [address] [address] [address] Kareem Urbina T4 [Mass/Vol] 14.00 ug/dL Critically high 4.80-13.90 [facility] Comment on above: Performed By: #### C BC #### [facility] [address] [address] [address] Kareem Urbina GLYCOHEMOGLOBIN A1Con 2021 ADA RECOMMENDATION SEE BELOW Normal [facility] Comment on above: Result Comment: ADA RECOMMENDED LIMIT 4.0 - 6.0 ADA THERAPEUTIC TARGET < 7.0 ACTION SUGGESTED > 7.0 Performed By: #### A 1C #### [facility] [address] [address] [address] Kareem Urbina Glucose [Mass/Vol] 117 mg/dL Normal [facility] Comment on above: Performed By: #### A 1C #### [facility] [address] [address] [address] Kareem Urbina HbA1c (Bld) [Mass fraction] 5.7 % Normal 4.5-6.2 [facility] Comment on above: Performed By: #### A 1C #### [facility] [address] [address] [address] Kareem Urbina LIPID PROFILEon 05-17-2022 CHOL-HDL RATIO NORM SEE BELOW Normal [facility] Comment on above: Result Comment: 3.3 - 4.4 LOW RISK 4.4 - 7.1 AVERAGE RISK 7.1 - 11.0 MODERATE RISK >11.0 HIGH RISK Performed By: #### C MP, T7, LIPID, TSH #### [facility] [address] [address] [address] Kareem Urbina Cholesterol [Mass/Vol] 243 mg/dL Critically high <=200 [facility] Comment on above: Performed By: #### C MP, T7, LIPID, TSH #### [facility] [address] [address] [address] Kareem Urbina Cholesterol in HDL [Mass/Vol] 64 mg/dL Critically high 40-60 [facility] Comment on above: Performed By: #### C MP, T7, LIPID, TSH #### [facility] [address] [address] [address] Kareem Urbina Cholesterol in LDL [Mass/Vol] 145.8 mg/dL Normal [facility] Comment on above: Performed By: #### C MP, T7, LIPID, TSH #### [facility] [address] [address] [address] Kareem Urbina Cholesterol.total/Ch olesterol in HDL [Mass ratio] 3.8 {ratio} Normal [facility] Comment on above: Performed By: #### C MP, T7, LIPID, TSH #### [facility] [address] [address] [address] Kareem Urbina HDL NORMAL > or = 60 mg/dl - LO W CARDIOVASCULAR RISK <40 mg/dl - HIGH CARDIOVASCULAR RISK Normal [facility] Comment on above: Performed By: #### C MP, T7, LIPID, TSH #### [facility] [address] [address] [address] Kareem Urbina LDL CALC NORMAL SEE BELOW Normal [facility] Comment on above: Result Comment: <100 mg/dl OPTIMAL 100 - 129 mg/dl NEAR OR ABOVE OPTIMAL 130 - 159 mg/dl BORDERLINE HIGH 160 - 189 mg/dl HIGH >190 mg/dl VERY HIGH Performed By: #### C MP, T7, LIPID, TSH #### [facility] [address] [address] [address] Kareem Urbina Triglyceride [Mass/Vol] 166 mg/dL Critically high <=150 [facility] Comment on above: Performed By: #### C MP, T7, LIPID, TSH #### [facility] [address] [address] [address] Kareem Urbina VLDL CALC 33.2 mg/dL Normal [facility] Comment on above: Performed By: #### C MP, T7, LIPID, TSH #### [facility] [address] [address] [address] Kareem Urbina PROF 14(COMP METB)on 022 Albumin [Mass/Vol] 3.4 g/dL Normal 3.4-5.0 [facility] Comment on above: Performed By: #### C MP, T7, LIPID, TSH #### [facility] [address] [address] [address] Kareem Urbina Albumin/Globulin [Mass ratio] 0.8 {ratio} Normal [facility] Comment on above: Performed By: #### C MP, T7, LIPID, TSH #### [facility] [address] [address] [address] Kareem Urbina ALP [Catalytic activity/Vol] 116 U/L Normal 46-116 [facility] Comment on above: Performed By: #### C MP, T7, LIPID, TSH #### [facility] [address] [address] [address] Kareem Urbina ALT [Catalytic activity/Vol] 39 U/L Normal 14-59 [facility] Comment on above: Performed By: #### C MP, T7, LIPID, TSH #### [facility] [address] [address] [address] Kareem Urbina Anion gap [Moles/Vol] 11.9 mmol/L Normal [facility] Comment on above: Performed By: #### C MP, T7, LIPID, TSH #### [facility] [address] [place] [address] Dr. Kareem Urbina AST [Catalytic activity/Vol] 24 U/L Normal 15-37 [facility] Comment on above: Performed By: #### C MP, T7, LIPID, TSH #### [facility] [address] [place] [address] Dr. Kareem Urbina Bilirubin [Mass/Vol] 0.1 mg/dL Critically low 0.2-1.0 [facility] Comment on above: Performed By: #### C MP, T7, LIPID, TSH #### [facility] [address] [place] [address] Dr. Kareem Urbina Calcium [Mass/Vol] 9.3 mg/dL Normal 8.5-10.1 [facility] Comment on above: Performed By: #### C MP, T7, LIPID, TSH #### [facility] [address] [place] [address] Dr. Kareem Urbina Chloride [Moles/Vol] 102 mmol/L Normal 98-107 [facility] Comment on above: Performed By: #### C MP, T7, LIPID, TSH #### [facility] [address] [place] [address] Dr. Kareem Urbina CO2 [Moles/Vol] 25.0 mmol/L Normal 21.0-32.0 [facility] Comment on above: Performed By: #### C MP, T7, LIPID, TSH #### [facility] [address] [place] [address] Dr. Kareem Urbina Creatinine [Mass/Vol] 0.84 mg/dL Normal 0.55-1.02 [facility] Comment on above: Performed By: #### C MP, T7, LIPID, TSH #### [facility] [address] [place] [address] Dr. Kareem Urbina EGFR-AF CYMRO >60 Normal >=60 [facility] Comment on above: Performed By: #### C MP, T7, LIPID, TSH #### [facility] [address] [place] [address] Dr. Kareem Urbina EGFR-NON AF CYMRO >60 Normal >=60 [facility] Comment on above: Performed By: #### C MP, T7, LIPID, TSH #### [facility] [address] [address] [address] Kareem Urbina Globulin (S) [Mass/Vol] 4.3 g/dL Normal [facility] Comment on above: Performed By: #### C MP, T7, LIPID, TSH #### [facility] [address] [address] [address] Kareem Urbina Glucose [Mass/Vol] 102 mg/dL Normal 74-106 [facility] Comment on above: Performed By: #### C MP, T7, LIPID, TSH #### [facility] [address] [place] [address] Dr. Kareem Urbina Potassium [Moles/Vol] 3.9 mmol/L Normal 3.5-5.1 [facility] Comment on above: Performed By: #### C MP, T7, LIPID, TSH #### [facility] [address] [place] [address] Dr. Kareem Urbina Protein [Mass/Vol] 7.7 g/dL Normal 6.4-8.2 [facility] Comment on above: Performed By: #### C MP, T7, LIPID, TSH #### [facility] [address] [place] [address] Dr. Kareem Urbina Sodium [Moles/Vol] 135 mmol/L Critically low 136-145 [facility] Comment on above: Performed By: #### C MP, T7, LIPID, TSH #### [facility] [address] [place] [address] Dr. Kareem Urbina Urea nitrogen [Mass/Vol] 9.0 mg/dL Normal 7.0-18.0 [facility] Comment on above: Performed By: #### C MP, T7, LIPID, TSH #### [facility] [address] [address] [address] Kareem Urbina Urea nitrogen/Creatinine [Mass ratio] 10.7 mg/mg Normal [facility] Comment on above: Performed By: #### C MP, T7, LIPID, TSH #### [facility] [address] [address] [address] Kareem Urbina TSHon 05-17-2022 TSH 0.073 uIU/mL Critically low 0.358-3.740 [facility] Comment on above: Performed By: #### C BC #### [facility] [address] [address] [address] Kareem Urbina CBC AUTO DIFFon 05-09-2022 BASO # 0.1 103/ul Normal 0.0-0.1 [facility] Comment on above: Performed By: #### C BC #### [facility] [address] [address] [address] Kareem Urbina Basophils/100 WBC (Bld) 0.5 % Normal 0.2-2.0 [facility] Comment on above: Performed By: #### C BC #### [facility] [address] [place] [address] Dr. Kareem Urbina EO # 0.2 103/ul Normal 0.0-0.7 [facility] Comment on above: Performed By: #### C BC #### [facility] [address] [place] [address] Dr. Kareem Urbina Eosinophils/100 WBC (Bld) 1.4 % Normal 0.9-7.0 [facility] Comment on above: Performed By: #### C BC #### [facility] [address] [place] [address] Dr. Kareem Urbina Erythrocyte distribution width (RBC) [Ratio] 15.2 % Critically high 11.0-15.0 [facility] Comment on above: Performed By: #### C BC #### [facility] [address] [place] [address] Dr. Kareem Urbina Hematocrit (Bld) [Volume fraction] 38.8 % Normal 36.0-48.0 [facility] Comment on above: Performed By: #### C BC #### [facility] [address] [place] [address] Dr. Kareem Urbina Hemoglobin (Bld) [Mass/Vol] 12.3 g/dL Normal 12.0-16.0 [facility] Comment on above: Performed By: #### C BC #### [facility] [address] [place] [address] Dr. Kareem Urbina IG # 0.04 10e3/ul Critically high 0.00-0.03 [facility] Comment on above: Performed By: #### C BC #### [facility] [address] [place] [address] Dr. Kareem Urbina IG % 0.4 % Normal 0.0-0.5 [facility] Comment on above: Performed By: #### C BC #### [facility] [address] [place] [address] Dr. Kareem Urbina LYMPH # 1.7 103/ul Normal 1.2-3.8 [facility] Comment on above: Performed By: #### C BC #### [facility] [address] [place] [address] Dr. Kareem Urbina Lymphocytes/100 WBC (Bld) 15.7 % Critically low 20.5-60.0 [facility] Comment on above: Performed By: #### C BC #### [facility] [address] [place] [address] Dr. Kareem Urbina MANUAL DIFF REQ NO Normal [facility] Comment on above: Performed By: #### C BC #### [facility] [address] [place] [address] Dr. Kareem Urbina MCH (RBC) [Entitic mass] 26.6 pg Critically low 26.7-34.0 [facility] Comment on above: Performed By: #### C BC #### [facility] [address] [place] [address] Dr. Kareem Urbina MCHC (RBC) [Mass/Vol] 31.7 g/dL Normal 29.9-35.2 [facility] Comment on above: Performed By: #### C BC #### [facility] [address] [place] [address] Dr. Kareem Urbina MCV (RBC) [Entitic vol] 83.8 fL Normal 81.0-99.0 [facility] Comment on above: Performed By: #### C BC #### [facility] [address] [address] [address] Kareem Urbina MONO # 0.5 103/ul Normal 0.3-0.8 [facility] Comment on above: Performed By: #### C BC #### [facility] [address] [address] [address] Kareem Urbina Monocytes/100 WBC (Bld) 4.9 % Normal 1.7-12.0 [facility] Comment on above: Performed By: #### C BC #### [facility] [address] [address] [address] Kareem Urbina NEUT # 8.6 103/ul Critically high 1.4-6.5 [facility] Comment on above: Performed By: #### C BC #### [facility] [address] [place] [address] Dr. Kareem Urbina Neutrophils/100 WBC (Bld) 77.1 % Critically high 43.0-75.0 [facility] Comment on above: Performed By: #### C BC #### [facility] [address] [address] [address] Kareem Urbina Platelet mean volume (Bld) [Entitic vol] 10.2 fL Normal 9.5-13.5 [facility] Comment on above: Performed By: #### C BC #### [facility] [address] [place] [address] Dr. Kareem Urbina PLT 328 103/ul Normal 150-450 [facility] Comment on above: Performed By: #### C BC #### [facility] [address] [place] [address] Dr. Kareem Urbina RBC 4.63 106/ul Normal 4.20-5.40 [facility] Comment on above: Performed By: #### C BC #### [facility] [address] [place] [address] Dr. Kareem Urbina WBC 11.1 103/ul Critically high 4.0-11.0 [facility] Comment on above: Performed By: #### C BC #### [facility] [address] [place] [address] Dr. Kareem Urbina FREE T3on 05-09-2022 FREE T3 4.73 pg/mlL Critically high 2.18-3.98 [facility] Comment on above: Performed By: #### C BC #### [facility] [address] [place] [address] Dr. Kareem Urbina FREE T4on 05-09-2022 Free T4 [Mass/Vol] 1.46 ng/dL Normal 0.76-1.46 [facility] Comment on above: Performed By: #### F T4 #### [facility] [address] [place] [address] Dr. Kareem Urbina PROF 14(COMP METB)on 022 Albumin [Mass/Vol] 3.4 g/dL Normal 3.4-5.0 [facility] Comment on above: Performed By: #### A 1C #### [facility] [address] [place] [address] Dr. Kareem Urbina Albumin/Globulin [Mass ratio] 0.7 {ratio} Normal [facility] Comment on above: Performed By: #### A 1C #### [facility] [address] [place] [address] Dr. Kareem Urbina ALP [Catalytic activity/Vol] 115 U/L Normal 46-116 [facility] Comment on above: Performed By: #### A 1C #### [facility] [address] [place] [address] Dr. Kareem Urbina ALT [Catalytic activity/Vol] 32 U/L Normal 14-59 [facility] Comment on above: Performed By: #### A 1C #### [facility] [address] [place] [address] Dr. Kareem Urbina Anion gap [Moles/Vol] 10.9 mmol/L Normal [facility] Comment on above: Performed By: #### A 1C #### [facility] [address] [place] [address] Dr. Kareem Urbina AST [Catalytic activity/Vol] 21 U/L Normal 15-37 [facility] Comment on above: Performed By: #### A 1C #### [facility] [address] [address] [address] Kareem Urbina Bilirubin [Mass/Vol] 0.2 mg/dL Normal 0.2-1.0 [facility] Comment on above: Performed By: #### A 1C #### [facility] [address] [address] [address] Kareem Urbina Calcium [Mass/Vol] 9.3 mg/dL Normal 8.5-10.1 [facility] Comment on above: Performed By: #### A 1C #### [facility] [address] [address] [address] Kareem Urbina Chloride [Moles/Vol] 101 mmol/L Normal 98-107 [facility] Comment on above: Performed By: #### A 1C #### [facility] [address] [place] [address] Dr. Kareem Urbina CO2 [Moles/Vol] 26.9 mmol/L Normal 21.0-32.0 [facility] Comment on above: Performed By: #### A 1C #### [facility] [address] [place] [address] Dr. Kareem Urbina Creatinine [Mass/Vol] 0.85 mg/dL Normal 0.55-1.02 [facility] Comment on above: Performed By: #### A 1C #### [facility] [address] [place] [address] Dr. Kareem Urbina EGFR-AF CYMRO >60 Normal >=60 [facility] Comment on above: Performed By: #### A 1C #### [facility] [address] [place] [address] Dr. Kareem Urbina EGFR-NON AF CYMRO >60 Normal >=60 [facility] Comment on above: Performed By: #### A 1C #### [facility] [address] [place] [address] Dr. Kareem Urbina Globulin (S) [Mass/Vol] 4.6 g/dL Normal [facility] Comment on above: Performed By: #### A 1C #### [facility] [address] [address] [address] Kareem Urbina Glucose [Mass/Vol] 114 mg/dL Critically high 74-106 [facility] Comment on above: Performed By: #### A 1C #### [facility] [address] [address] [address] Kareem Urbina Potassium [Moles/Vol] 3.8 mmol/L Normal 3.5-5.1 [facility] Comment on above: Performed By: #### A 1C #### [facility] [address] [address] [address] Kareem Urbina Protein [Mass/Vol] 8.0 g/dL Normal 6.4-8.2 [facility] Comment on above: Performed By: #### A 1C #### [facility] [address] [place] [address] Dr. Kareem Urbina Sodium [Moles/Vol] 135 mmol/L Critically low 136-145 [facility] Comment on above: Performed By: #### A 1C #### [facility] [address] [place] [address] Dr. Kareem Urbina Urea nitrogen [Mass/Vol] 12.0 mg/dL Normal 7.0-18.0 [facility] Comment on above: Performed By: #### A 1C #### [facility] [address] [place] [address] Dr. Kareem Urbina Urea nitrogen/Creatinine [Mass ratio] 14.1 mg/mg Normal [facility] Comment on above: Performed By: #### A 1C #### [facility] [address] [place] [address] Dr. Kareem Urbina TROPONIN, HIGH SENSITIVITYon 05-09-2022 HSTROP 6.8 pg/mL Normal 4.0-51.3 [facility] Comment on above: Result Comment: CUT- OFF POINTS HAVE BEEN ESTABLISHED BASED ON THE FOURTH UNIVERSAL DEFINITIONS OF MYOCARDIAL INFARCTION. THE UPPER REFERENCE LIMIT (URL) OF TROPONIN, DEFINED THE 99TH PERCENTILE OF cTnI DISTRIBUTION IN A REFERENCE POPULATION, HAS BEEN CONFIRMED THE DECISION THRESHOLD FOR CO DIAGNOSIS. Performed By: #### A 1C #### [facility] [address] [place] [address] Dr. Kareem Urbina TSHon 05-09-2022 TSH 0.085 uIU/mL Critically low 0.358-3.740 [facility] Comment on above: Performed By: #### A 1C #### [facility] [address] [address] [address] Kareem Urbina XR CHEST 1 Von [...] by: ALIZE BENTON Date: 2022-05-09 12:11 Normal [facility] H PYLORI ANTIBODY IGGon 03-24 H. PYLORI IGG ABS 0.08 Index Value Normal 0.00-0.79 [facility] Comment on above: Result Comment: Nega tive <0.80 Equivocal 0.80 - 0.89 Positive >0.89 Performed By: #### T 4LC, HPYLLC #### [facility] [address] [address] [address] Kareem Urbina T4 LABCORPon 04-13-2022 T4 [Mass/Vol] 12.4 ug/dL Critically high 4.5-12.0 [facility] Comment on above: Performed By: #### C BC #### [facility] [address] [address] [address] Kareem Urbina FREE T3on 04-12-2022 FREE T3 4.00 pg/mlL Critically high 2.18-3.98 [facility] [facility] Comment on above: Performed By: #### T 4LC, HPYLLC #### [facility] [address] [address] [address] Kareem Urbina TSHon 04-12-2022 TSH 0.416 uIU/mL Normal 0.358-3.740 [facility] Comment on above: Performed By: #### T 4LC, HPYLLC #### [facility] [address] [place] [address] Dr. Kareem Urbina Coding Summary.on 03-21-2022 Coding Summary. CD:[id number] Gh0b Ww+PGhlYWQ+PU6APYNxP84zw XJdgO5FP5pSJQ1ABRYXKZGNA T5OOT3llQE9MHnaW8WivtDf HvmneBIwOB98UKj5WRK2kAxr PQzhqL0haGDqL1r3DcNcFV99 pP97GOdxTBPtQcU8BdKhogdv bWFy T8osMdCqkQFaJrm+PHRhYmxl IHdpZHRoPScxMDAlJyBzdHls WF5qLe5sPENeHMMdrTvclPEg OiBj i4ptXKFfMWibSQ6vvCjsV3Fc hQC6OZAod5b2Wl54aBW+PHRk TBH2eYyxTWlxr212DnTdc8xy IDM3 hQPgOTjzYPU8C76le8U1PWNk BREoYLE1iAG8xL6ceXxqklbr V1StbHKrRnV9CVR2mHRzoJ1f bGln hptoeI3uPld+G51PVA9TSHDN RV0JFrj5Y7HrGckygSQ+PC90 CHLmIB81eIJenRDho9ajoMc8 JzEw PIDeFBO8sOtlNHmcn7LbQFEn M29ugYElr8H9SFIxqXijlIBd YtUvgZG6qV4eNLiytoazb9av dzsn Casro0sjmb24hK00A91oGNnt SVYlPCV5YTXlKJEayTpjuy8b xB8iYh5+MSvwf6stz5fjrPo0 IjIw PIVejbLutIiiSJD8j8KtTx93 V6ZjhChjo8DrWtb5sd30wMCx k5Y2cGP6GVibHHEkfY6hFEyv ZnQ6 OQKnViIlbK48cMHbIJqxMq2r lNfpnScpKU1lPHUhnxbbAUKf jC9bJBYfzEAhsGvhFY9cZNRw bjtm n125VdUeITS8VSCxzVOlG8Zv mI1fJjTiSYFuUQSkK1UimHDs QQuyF553QYnqJaU7NNPeeiYh Y2Fs AQPfpZyhOrP7g6H8Ot1Pt1Gg bcslMCC4MPifNWB5IvNzZlTw DbO8D4BqFwh0NWPxoUhjFF9e J3Bh SQNkesomteczpXF3MEFfWNZq uK92xEQlVCciDv4xg8C2u296 UEFhPXDpdZ44Lr2rjKpfKCVb dCBU eT8wuxglg1gcqqeeHnPzITHc UMt5KEv6GQWgmChuTdGmRVM6 YoZ3ZPC8iHMhnD7saYadppmt dG9w Oyc+Z59chQ4sHDN6WOX3vyoi FIDjzmUkJA07UC69B6RcWzjs dGFibGU+UWJijsXnrQkfIE4o YmFj i6axx8FuRTobG6FcUJDiSMex Mcu3GFOpLQH6zTL2pA2rTNKv LPyuq8F3vVU6T8YntrCwac9k b2xs HHJqFRrrQ89rfYFji2B3UPNd kZE1DAZxpEefZgCynN42Yvt+ KYYjiFono1ZcKcijc9err9ix dGg9 JcAdSIPobgUjdVziAHF2s4Xe Ou71K59bWNcyNFAoYYZwCWKo GQZodCbzgn6mnR6sOr3+PGNv bCB3 lWG8eD5kPYPwWvX4CSydV500 TcOdmEXeXksun9max8nbeFd1 HtAfGQNhttPztAnsYGM3s4Rp Lz48 H63rWKkmVFOsYUAiEZAtSABt pJolhf9cfX5zAw0+AF7tw7wb jq19tB98rMT+ULXbAHO6qBvp PSdw MFBbrP4vFOtwDbU2OTFtYfDd lW48bEJeYSvrSe2agJgxiWui DF1gSXRtecjgb578CjTzk5oc IDEw pQOuAVeuUOF0R50rl7C9DUDt NGQsRQD5yNU7mP3hwHkcreac bGVmdDsgdmVydGljYWwtYWxp Z246 IHRvcDsnPlBhdGllbnQgTmFt NHc7K0MmIez6QQBwqTyjFZ6d oSCnYJunMo4egHcdnFzbPZ1w NTBp tkbck764NaHww3yrFKQuwYYc YTotCDG5S47ou6W9CEQjIMYf URW2qEC8tS9auNxcqtxdwWXu dDsg sbShbBjpTUpkWQufI484OGFy wVmmGkYpmgFuIDSyoCZ2JX17 CF29tDAag3G4dZL9M4NxEBPc bmct dpowtJE1WMNiELOpiW14Kx5x sNwnTe9kBFNuGKO9ZTQspBWl W6QfaF7nTrPoZVZyDXKmL7Tp eHQt JUkkF632PPgjZpI6QWXoyhLs B8ZaWSFxzAypZsZ4y7K3Ro2W Q5N3NZ40JY52sYSqg5R8nAR3 J3Bh TDWookkxehyrxOI7HYVoYFUi iC29Vr7bvNuvCl4qFUKhEJM9 TJDndQBtA1TjzS0aLtRxNRFk MDAw Q5XfoQCxNAtqU825LSzzQfW7 WESdqwSfB7VpNFYvmPdnAcC2 r0T3Qx3TWIj1AA44IV61pCAs c3R5 aWS9L9LgQPKzikmubutibJD4 WPNhWHEpkF09Vn7bbDqzMn3g UVPhMKH1RSNisHJpQ0OklL8t OiAj ZAFmMXRtB7KphQKpMKybY782 DIdsSwK6CWEjdkThI3JaAUWd fIduYaD1k1N5Ks9HVUIoNU11 IFR5 bHR7LQ05JV77I6FeUrukiYIo bGU+PHRhYmxlIHdpZHRoPScx JDPmGuXqbUqpPQ8lPk8bANJd LWNv jNuvaPWyBzEdb9suXFOfDYjo JD5fnUddB8QuaYM5HXCzr3d9 Rq08A82pF0DwhLC+PGNvbCB3 aWR0 pB4dKqGmRuH6ZBjpF601IdMa cERvPlzfz1nef5vguKg3HfR9 GONgknHuaTcwMTV4v2CyCz96 Y29s IHdpZHRoPSIxNSUiIHZhbGln lj2ujW3eIw8+PCFwtUJ9uCA7 fG0pZvApMnA4PYucY120RpRq cCIv Mgsxe3nyf2ttlNg2NeUaHZCm yrLjwWlsITI5q2VsTu48I9Ry oBmqo9EmHbf7qu12bZVbu2L5 bGU9 R9OzRZIujxtivYBymNlnTN9x DZFatjhkFJCcnO2dXWSeU2y5 OyAcZoX5ULkwT6KjqiA1FWFz cHQg CThqGNZ7S98sw3L9ZUZfMKLp NKE7tIJ6hJ6msBerbofqlWBr fCwpauJqpLxqNCbnPXozL368 IHRv gBvjXQYtdE3vSXRwbOKvnBox FO7zTDJbomnnFfeDU4XSNYan NMTNCC80P1UiHhy9SXKgeIdv ZT0n qVTrLUztFn9loNqqxCvuGX9b ZBRoxzhdSPCaoK9tCKYcdEEf eEwxLB3lCXCypjyws307ErSu MHB0 CNMcpNRtF6VmnS1pJnIlZLIm UUZdQ7NtsTMhHWszP994RNec LiD5MCKpllJkI7OmIEFzkXfn OiB0 j4X5Hi2fMj8zDE8xNDx6KL75 CR35lEKly0H9mQL7O6AbFAZg pdoicxflpQS3RSLnJQRqxJ52 cGFk KOggNz2rb6Q9k440OJUmLUBf rW27Ws1ipRxgGDDdgXNLnA2u dshoe6fcyhwiLgUlLOVxSCo6 ZXh0 EZYudTnsYhBzJAZ6AjY7PZX9 oUOgnT6xmOtwkxavbJ6zPkm+ PLJvRLTgxnG8C3StHhc1SYSx dHls CM3hwGTuBXdtKg9vySanjZqd ZX7aHRYridadXJVonN0yHBVj rDKxzWqbNC3yIEUkvimex933 OiAx XMI1VCBigCSiC6WzxQ7dXwGo VVIcUJDnC9AqbGFcMHtiS453 MIbiHhQ0CJIkcrNeA8LtYNAy aWdu WoS5r8B8Oq0TDQ7jeBT1U5Mm Ydg4CZYwdKabSB0vkLDgJGbn Ko5ytZrfwPboRC2bSAHrgeeh YWRk jQ4lQHMnpORpsIarMY6aBNVq vfgaj600OlWkRVJ3YFEuvJLo Z6RdeV1kDbHmUTKkQQQsL2Rv eHQt SFawG445LMepLcK6WNJtboHu Y3GxPSLhmFmqQiZ0f7E6Nf0D cAPnWYDeJD86OQ71GS07K8Lb Pjwv dGFibGU+PHRhYmxlIHdpZHRo DKgpVGQeUxYruGuxZE0fIm8t ZXVfDUFsjPrqoODpKwDvi2bt YXBz ANdeNS1ijNtfF5OldXA3FSNc s9b4Tw09G68aS1RmzXX+PGNv hYS4oGU3oF8mQxXvFjJ7HFsc Z249 DuWcwCHvDyeyk5lcn6jhcDn7 IaYqIWOcqeNiySepMPJ9x3Tw Yn53X35vABomRAIpSGZvZRUe IHZh tQldyo7reP9kPa1+PGNvbCB3 fEC3jS2lNbBdQnO7YWvmW210 YrOcoJPpUzhlZ57mE8EmoOB+ PHRy Vnx9GYQllAucNF7gsBKiDEal Bu7fJNO2QpOzLvNgVTclS1Fb RHYecckgyakjoXN4LXEtOAMx aW47 Bq7crYbyAv8zTWMkLBD1IANl jWUvA8YbcV3sCkZeDHEtKCXw U1BbvXGoUVpbG045FOulQwV1 IHZl yeOmN8TfRSAlwWssDfG0d5R4 Ms2NdCtvnXEvNS1dTsMdVBz6 F8GqAjs7RPEylHfeQU8alPSa ZGlu Dw6juFwxoPetPP5aJVFbcwui z420JhDty6btYYPqbNZdUDfg RYA7X08ov0L7ULPyTUEyVHD2 dGV4 mX8wuKrrlqspjASvoBlevoJf mJatPAavEHqcF202VWDrzJmk GuTMXgy5K3KyPhz2VPLedUyy ZT0n nWEdTEylUs4cfDuyjUudCB6v RWIxhpiaq008YfIdb8frTQTs jXMxVUeiBKX0V86lq1A9EGGf MDAw NBF3wJS0mI2aiVlaqmmtsNTf hQzqaaLgzVmnLYcwOKnsX900 KLLlwPdoUh3XQdo4B7YtJdi5 ZCBz xYehFT6grKHhGUpqBm7drPqj wNyeSV0xIAWmobpvm340EzOa b7tbHIVlmDIdOJdsNBZ2M76n b3I6 LIDoVELeRLF5vNN5qY3cbDum bjogbGVmdDsgdmVydGljYWwt FPgxQ673YKFueGanWkZccQAg Ojwv dGQ+XZ45si40W4XaRxwfVun9 OBOmPID4hQG0bB5hKMUaWGud l5I9iLV6U1CvvcAsyq1eo2ki YXBz ZTog (more content not included)... Normal [facility] Consent for Treatmenton 02-21 Consent for Treatment [id number]#1.00CD: 127 Normal [facility] HIPAA Forms Officeon 022 HIPAA Forms Office [id number]#1.00CD :127 Normal [facility] Legal Correspondence Officeo n 03-14-2022 Legal Correspondence Office [id number]#1.00CD :127 Normal [facility] Office/Clinic Note-Physician on 03-14-2022 Office/Clinic Note-Physician [id number]#1.00CD :127 Normal [facility] Outside Records Officeon Outside Records Office [id number]#1.00CD :127 Normal [facility] Patient History Officeon Patient History Office [id number]#1.00CD :127 Normal [facility] Radiology Outside Office 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 PYLORI IGG ABS 0.25 Index Value Normal 0.00-0.79 [facility] Comment on above: Result Comment: Nega tive <0.80 Equivocal 0.80 - 0.89 Positive >0.89 Performed By: #### T 4LC, HPYLLC #### [facility] [address] [address] [address] Kareem Urbina T4 LABCORPon 03-11-2022 T4 [Mass/Vol] 2.4 ug/dL Critically low 4.5-12.0 [facility] Comment on above: Performed By: #### T 4LC, HPYLLC #### [facility] [address] [address] [address] Kareem Urbina FREE T3on 03-10-2022 FREE T3 0.97 pg/mlL Critically low 2.18-3.98 [facility] Comment on above: Performed By: #### C BC #### [facility] [address] [address] [address] Kareem Urbina TSHon 03-10-2022 TSH 34.602 uIU/mL Critically high 0.358-3.740 [facility] Comment on above: Performed By: #### C BC #### [facility] [address] [address] [address] 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 Installer yon 03-06-2022 Radiology Outside Office Copy [id number]#1.00CD :127 Normal [facility] Radiology Outside Office Copy [id number]#1.00CD :127 Normal [facility] Referrals Officeon Referrals Office [id number]#1.00CD :127 Normal [facility] Covid-19 PCR (CVDTB)on 01-21 SARS-CoV-2 (COVID-19) RNA JUANITA+probe Ql (Unsp spec) Not detected Normal NOT DETECTED [facility] Comment on above: Result Comment: When diagnostic [...] for this test is supported by the [place] of Health and Human Service's declaration that [...] longer be used). Performed By: #### C [facility] #### [facility] [address] [place] [address] Dr. Kareem Urbina OPERATIVE REPORTon OPERATIVE REPORT NAME: SAIRA ALEXIS MR#: [id number] SURGEON: Gómez Mueller MD DATE OF SURGERY: 01/30/2022 OPERATIVE REPORT [...] in excellent condition. There were no complications. MD [facility] [place]/[id number] E/S: Gómez Mueller MD 02/22/22 1026 Electronically Signed [facility] PT NAME: SAIRA ALEXIS MR#: [id number] [address] [place] [address] ACCT: [id number] : 78 OPERATIVE REPORT Normal [facility] MRI LSPINE WO CONon 01-11-20 MRI LSPINE [...] by: JUAN PRATER Date: 2022-01-10 16:47 Normal [facility] XR LSPINE MIN 4 VIEWSon 12-21 XR [...] by: EMELY ESQUIVEL Date: 2022-01-04 18:32 Normal [facility] Skilled Nursing Documentson 10-14-2021 Skilled Nursing Documents [id number]#1.00CD :127 Normal [facility] Coding Summaryon 03-12-2019 Coding Summary CODING DATE: 019 [facility] STATUS: Home PAYOR: Medicare APC DESCRIPTION [facility]2 Level 2 Type A ED Visits ADMIT [...] Farmer Date Saved: 03/12/2019 02:53 pm Normal [facility] Coding Summary CODING DATE: 019 [facility] STATUS: Home PAYOR: Medicare APC DESCRIPTION 5022 [...] result in slightly different terminology. Coded By: Ramiro Farmer' Date Saved: 03/12/2019 02:52 pm [facility] Coding Summary CODING DATE: 019 [facility] STATUS: Home PAYOR: Medicare ADMIT DX: REASON [...] Aleah Farmer Date Saved: 03/12/2019 02:52 pm [facility] ED Clinical Summaryon 2018 ED Clinical Summary [facility] - Emergency Department [address] [place] [address] ED Clinical Summary PERSON INFORMATION Name: SAIRA ALEXIS Age: 39 Years Sex: FEMALE : 1980 MRN: Acct#: Visit Reason: Dental pain; DENTAL PAIN Arrival: 03/09/2019 19:35:00 Discharge: 03/09/2019 20:49:00 LOS: 000 01:14 Check In: 03/09/2019 19:35:00 Checkout:03/09/2019 20:49:00 Address: [address] [place] [address] PCP: SANDRA AMAYA PROVIDER INFORMATION Provider Role Assigned Unassigned Juan Caraballo MD ED Provider 03/09/2019 20:12:14 Alonzo BETANCUR, Nesha Thapa ED Nurse 03/09/2019 20:22:36 VITALS INFORMATION Vital [...] mg oral tablet: 1 tab(s), PO, Once [place] 5 mg-325 mg oral tablet: 1 tab(s), PO, Once [place] 5 mg-325 mg oral tablet: 2 tab(s), [...] the pulp. This is tender NECK: -Supple (mzdv-xs-yosms). CARD: -Rate and rhythm: Regular -Murmurs: No [...] returning Impression and Plan Diagnosis Dental abscess (LQX40-EK K04.7, Discharge, Medical) Plan Condition: Improved. Disposition: Discharged: Time 03/09/2019 20:35:00, to home. Prescriptions: Launch prescriptions Pharmacy: [facility] mg-325 mg oral tablet (Prescribe): 1 [...] Patient/family/caregiver verbalizes understanding of instructions given Comment: Normal [facility] ED Note - Physicianon 2018 ED Note - Physician Patient: DORIE ALEXIS Alanis Age: 39 years Sex: FEMALE : 1980 [...] mg oral tablet: 1 tab(s), PO, Once [place] 5 mg-325 mg oral tablet: 1 tab(s), PO, Once [place] 5 mg-325 mg oral tablet: 2 tab(s), [...] the pulp. This is tender NECK: -Supple (akpf-wr-fwgfy). CARD: -Rate and rhythm: Regular -Murmurs: No [...] returning Impression and Plan Diagnosis Dental abscess (HLG08-AC K04.7, Discharge, Medical) Plan Condition: Improved. Disposition: Discharged: Time 03/09/2019 20:35:00, to home. Prescriptions: Launch prescriptions Pharmacy: [facility] mg-325 mg oral tablet (Prescribe): 1 [...] on: 03/09/2019 20:36 EDT] Juan Caraballo MD [facility] ED Note-Nursingon 03-09-2019 ED Note-Nursing Pt [...] neck. Pt denies any SOB or fever. [facility] ED Patient Education Noteon 03-09-2019 ED [...] these instructions at home: Medicines ? Take fojc-mac-fvvwmea and prescription medicines only as told by [...] is important. How is this prevented? ? Cusick your teeth every morning and night with [...] 07/09/2006 Document Revised: 03/11/2018 Document Reviewed: 03/11/2018 [employer] Interactive Patient Education ? 2019 [employer]. Normal [facility] ED Patient Summaryon 019 ED Patient Summary [facility] - Emergency Department [address] [place] [address] PATIENT DISCHARGE INSTRUCTIONS Patient Information Name: SAIRA ALEXIS Age: 39 Years Date of : 1980 Reason For Visit: Dental pain; DENTAL PAIN Arrival Time: 03/09/2019 19:35:00 Primary Care Physician: SANDRA AMAYA Attending Physician: Juan Caraballo MD Comment: Visit Diagnosis: Diagnoses This Visit Dental abscess (K04.7) Dental pain ([id number]) Prescription Information: If you have been given a prescription for narcotics, seek immediate medical attention if you have any difficulty breathing or any sudden status changes such as confusion and sleepiness. If you or anyone you know is experiencing suicidal thoughts, mental health, alcohol and/or drug addiction problems; contact the [facility] 12/02 Crisis Hotline -Text 9ZWTS er 512442. If you received any narcotics, sedation, or [...] and treatment you received today in the [facility] Emergency Department were for an urgent problem and are not intended as complete care. It is important for you to follow up with a doctor, nurse practitioner, or physician?s plastic surgery assistant for ongoing care. If your symptoms [...] so we can reach you if necessary. [facility] Emergency Department has provided you with a complete list of medications post discharge. Please inform your calculus tutor/provider of your visit and for further instruction on these medications. Any specific questions regarding your chronic medications and dosages should be discussed with your primary care physician(s) and/or pharmacist. New Medications Printed Prescriptions acetaminophen-hydrocodon e ([place] 5 mg-325 mg oral tablet) 1 tab(s) [...] these instructions at home: Medicines ? Take pgrg-ore-hmybxey and prescription medicines only as told by [...] is important. How is this prevented? ? Cusick your teeth every morning and night with [...] 07/09/2006 Document Revised: 03/11/2018 Document Reviewed: 03/11/2018 [employer] Interactive Patient Education ? 2019 [employer] Viruses or Bacteria What?s got you [...] for Disease Control and Prevention March 2014 [facility] Vital Signs Date Time Vital Sign Value Performing Clinician Bandar smith 03-14-2022 09:24-0400 Diastolic blood pressure 86 mm[Hg] Juan F Day [facility] 03-14-2022 09:24-0400 Heart rate 86 /min Juan F Day [facility] 03-14-2022 09:24-0400 Mean blood pressure 102 mm[Hg] Juan F Day [facility] 03-14-2022 09:24-0400 Respiratory rate 18 /min Juan F Day [facility] 03-14-2022 09:24-0400 Systolic blood pressure 135 mm[Hg] Juan F Day [facility] Encounters Encounter Date Encounter Type Care Provider Facility Start: 04-17-2024 End: 04-17-2024 ambulatory [facility] Work Phone: Start: 04-17-2024 End: 04-17-2024 Patient encounter procedure [facility] Physician [facility] Work Phone: Start: 03-31-2024 Non-patient / Non-visit [facility] Physician [facility] Work Phone: Start: 03-31-2024 End: 03-31-2024 ambulatory [facility] Work Phone: Start: 03-31-2024 End: 03-31-2024 Patient encounter procedure [facility] Physician [facility] Work Phone: Start: 03-26-2024 End: 03-26-2024 ambulatory DAVON H TIMMIS Not Available Start: 03-18-2024 End: 03-18-2024 ambulatory [facility] Work Phone: Start: 03-18-2024 End: 03-18-2024 Patient encounter procedure [facility] Work Phone: Start: 02-19-2024 End: 02-19-2024 ambulatory DAVON OJEDA Not Available Start: 02-01-2024 End: 02-01-2024 ambulatory [facility] Work Phone: Start: 02-01-2024 End: 02-01-2024 Patient encounter procedure [facility] Physician [facility] Work Phone: Start: 11-28-2023 Non-patient / Non-visit [facility] Physician [facility] Work Phone: Start: 11-13-2023 End: 11-13-2023 ambulatory [facility] Work Phone: Start: 11-13-2023 End: 11-13-2023 Patient encounter procedure [facility] Physician [facility] Work Phone: Start: 09-03-2023 (Procedure) Tiffanie Bertin Velez [facility] Start: 09-03-2023 End: 09-03-2023 ambulatory Bertin Velez Other [employer] Other Start: 08-14-2023 End: 08-14-2023 ambulatory Bertin Velez Other [employer] Other Start: 08-14-2023 Telephone encounter Bertin [facility] Start: 07-10-2023 End: 07-10-2023 ambulatory Bertin Velez Other [employer] Other Start: 07-10-2023 Office outpatient visit 15 minutes Bertin Velez [facility] [place] Start: 06-27-2023 (Procedure) Short Bertin Velez [facility] Start: 06-27-2023 End: 06-27-2023 ambulatory Bertin Velez Other [employer] Other Start: 06-11-2023 End: 06-11-2023 ambulatory Bertin Velez Other [employer] Other Start: 06-11-2023 Office outpatient visit 25 minutes Bertin Velez [facility] [place] [facility] Start: 02-07-2023 End: 02-07-2023 ambulatory Bertin Velez Other [employer] Other Start: 02-07-2023 Office outpatient visit 25 minutes Bertin Velez [facility] [place] Start: 01-31-2023 (Procedure) Short Bertin Velez [facility] Start: 01-31-2023 End: 01-31-2023 ambulatory Bertin Velez Other [employer] Other Start: 01-24-2023 End: 01-24-2023 ambulatory Bertin Velez Other [employer] Other Start: 01-24-2023 Telephone encounter Bertin Prince [facility] Start: 01-15-2023 End: 01-15-2023 ambulatory Bertin Velez Other [employer] Other Start: 01-15-2023 Office outpatient ne w 45 minutes Bertin Velez [facility] [place] Start: 01-15-2023 Telephone encounter Bertin [facility] Start: 11-09-2022 End: 11-10-2022 ambulatory NARENDRANATH LAKSHMIPATHY . Facility:[facility] Start: 10-24-2022 End: 10-24-2022 ambulatory NARENDRANATH LAKSHMIPATHY . Facility:[facility] Start: 09-26-2022 End: 09-27-2022 ambulatory NARENDRANATH LAKSHMIPATHY . Facility:[facility] Start: 09-20-2022 End: 09-21-2022 ambulatory [...] 04-14-2022 End: 04-14-2022 ambulatory DORCAS TOVAR . [place] [employer] Other Start: 04-14-2022 Patient encounter procedure Irina Soler [facility] Start: 04-12-2022 End: 04-13-[address] SANDRA AMAYA . Facility:[facility] Start: 03-14-2022 End: 03-14-2022 Patient encounter procedure Juan F Day [facility] Start: 03-10-2022 End: 03-11-[address] SANDRA [...] 2005 Payers Date Payer Category Payer Unknown [id number] 2.16.84 [id number] 1980 Unknown [id number] 2.16.84 0.1.416870.3.579.2.593 1980 Unknown [id number] .16.84 0.1.740014.3.579.2.593 1979 Unknown [id number] .16.84 0.1.193044.3.579.2.593 1979 Unknown [id number] .16.84 0.1.240840.3.579.2.593 1979 Unknown [id number] .16.84 0.1.355650.3.579.2.593 1979 Unknown [id number] .[id number] 0.1.741605.3.579.2.593 1979 Unknown [id number] .[id number] 0.1.627540.3.579.2.593 1979 Unknown [id number] .16.84 0.1.651538.3.579.2.593 1979 Unknown [id number] .16.84 0.1.503506.3.579.2.593 1979 Unknown [id number] .16.84 0.1.097746.3.579.2.593 1979 Unknown [id number] .16.84 0.1.006842.3.579.2.593 1979 Unknown [id number] .16.84 0.1.126199.3.579.2.593 1979 Unknown [id number] .16.84 0.1.396931.3.579.2.593 1979 Unknown [id number] .16.84 0.1.377520.3.579.2.593 1979 Unknown [id number] .16.84 0.1.314632.3.579.2.593 1979 Unknown [id number] .16.84 0.1.132688.3.579.2.593 1979 Unknown [id number] 2.16.84 0.1.516603.3.579.2.593 1979 Unknown [id number] 2.16.84 0.1.963451.3.579.2.1259 1979 Unknown [id number] 2.16.84 0.1.685113.3.579.2.1259 1960 Medicaid [id number] 2. [id number] 1960 Medicare [id number] Medicare [id number] 2.1 [id number] Self-pay Self Pay [id number] Social History Date Type Detail Facility Start: 03-14-2022 Tobacco smoking status Heavy t obacco smoker (finding) [facility] Sex Assigned At Female [facility] Start: 08-29-2018 Tobacco smoking stat us NHIS Smoker (finding) [facility] Start: 1980 Sex Assigned At Female F [facility] Functional Status Date Assessment Result Facility 03-14-2022 Functional Status N/A [facility] Clinical Notes 08-23-2018 to 07-10-2023 Note Date [...] Above note written by Avis Garcia LPN, [employer]. Edited and approved by Dr. Bertin Velez MD. [place] [employer] Other 11-20-2023 Evaluation note* Encounter Date Diagnosis [...] note writ ten by Gilmar Michelle MA, [employer]. Edited and approved by Dr. Bertin Velez MD. [employer] Other 07-19-2023 Evaluation note* Encounter Date Diagnosis [...] note writ ten by Avis Garcia LPN, [employer]. Edited and approved by Dr. Bertin Velez MD. [employer] Other 06-26-2023 Evaluation note* Encounter Date Diagnosis [...] Above note written by Avis Garcia LPN, [employer]. Edited and approved by Dr. Bertin Velez [...] negative findings were considered in medical decision-making. [employer] Other 04-20-2023 NoteCONSULTATION CONSULTATION DATE: 11/09/2022 TO: [...] our patients to inform us about any [id number] medications or herbal remedies/nutritional supplements/alternative remedies. 2. [...] treatment options with their primary care provider.[id number] Note CONSULTATION CONSULTATION DATE: 10/24/2022 ADDENDUM: PROCEDURE: Bilateral facet joint injection L4-5, L5-S1 (not just left sided facet joint injection at L4-5, L5-S1).[facility] [id number] Note CONSULTATION CONSULTATION DATE: 09/26/2022 TO: Dr. [...] Of note, her Oswestry scale was 35.[facility] [id number] NoteCONSULTATION CONSULTATION DATE: 08/22/2022 CHIEF COMPLAINT: Low [...] was seen by Dr. Ady Dhaliwal in [place], referred by Dr. Amaya, and had received [...] like to proceed. 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 She can follow up p.rmandeep. Juan F Day M.D. 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 Surgical History No Surgical history information Hospitalization History No Hospitalization histo ry information [facility] [employer] Other 02-01-2019 History general Narrative - Reported* Type Description Date Medical History bipolar type 1 Medical History sleep phase delay Medical History 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 hx. [employer] Other Chief complaint+Reason for visit Narrative* Chief Complaint *LUMBAR EPIDURAL L4 L5/DS WANTS TO DISCUSS PROCEDURE Reason for Visit Bilateral sacroiliit is Chronic pain Other spondylosis with radiculopathy, lumbar region Trochanteric bursitis [facility] Work Phone: Chizr complaint+Reason for visit Narrative* Chief Complaint *LUMBAR EPIDURAL L4 L5/DS WANTS TO DISCUSS PROCEDURE LUMBAR EPIDURAL STEROID INJ L4 L5/CJ Reason for Visit Bilateral sacroiliit is Chronic pain Other spondylosis with radiculopathy, lumbar region [facility] Work Phone: Chiop complaint+Reason for visit Narrative* Chief Complaint *LUMBAR EPIDURAL L4 L5/DS WANTS TO DISCUSS PROCEDURE LUMBAR EPIDURAL STEROID INJ L4 L5/CJ F/U LUMB EPIDURAL Reason for Visit Bilateral sacroiliit is Chronic pain Other spondylosis with radiculopathy, lumbar region Bilateral sacroiliitis Chronic pain Other spondylosis with radiculopathy, lumbar region [facility] Work Phone: Evaluation + Plan note No data available for this section [facility] [employer] Other Evaluation note* Diagnosis Onset Date Resolution Status Bilateral sacroiliitis acute Chronic pain acute Other spondylosis with radiculopathy, lumbar region acute Trochanteric bursitis acute [facility] Work Phone: Evaluation note* Diagnosis Onset Date Resolution Status Bilateral sacroiliitis acute Chronic pain acute Other spondylosis with radiculopathy, lumbar region acute [facility] Work Phone: Evaluation note* Diagnosis Onset Date Resolution Status Bilateral sacroiliitis acute Chronic pain acute Other spondylosis with radiculopathy, lumbar region acute Bilateral sacroiliitis acute Chronic pain acute Other spondylosis with radiculopathy, lumbar region acute [facility] Work Phone: Hospital Discharge instructions No data available for this section [facility] No data available for this section [facility] Summary Purpose Family History No Family History Records FoundNo Family History Records FoundNo Family History Records FoundNo Family History Records FoundNo Family History Records Found Advance Directives Advance Directive Response Recorded Date/ Time Advance Directives No August 24, 2017 10:50am Advance Directive Response Recorded Date/ Time Advance Directives No March 19, 2024 3:03pm Reason for Referral Reason long standing hx of lumbar pain, pt requesting eval for breast reduction Diagnosis 1 Other low back pain (M54.59) Referral Organization [facility] Referring Provider First Name Bertin Referring Provider Last Name Rosie Referring Provider Specialty Pain Medici ne Referred Provider Rivera Blair Referred Provider Specialty Plastic and Reconstructive Surgery Referral Priority Routine Chief Complaint and Reason for Visit Chief Complaint 4 Month Follow Up Reason for Visit Bilateral sacroiliit is Chronic pain Other spondylosis with radiculopathy, lumbar region Trochanteric bursitis Chief Complaint 4 Month Follow Up *LUMBAR EPIDURAL L4 L5/DS Reason for Visit Bilateral sacroiliit is Chronic pain Other spondylosis with radiculopathy, lumbar region Trochanteric bursitis Additional Source Comments INFORMATION SOURCE (unrecogn ized section and content) DATE CREATED AUTHOR 03/13/2019 [facility] DATE CREATED AUTHOR AUTHOR'S ORGANIZ ATION 03/19/2022 [facility] DATE CREATED AUTHOR AUTHOR'S ORGANIZ ATION 03/21/2022 [facility] DATE CREATED AUTHOR AUTHOR'S ORGANIZ ATION 11/15/2022 [facility] DATE CREATED AUTHOR AUTHOR'S ORGANIZ ATION 03/28/2024 [facility] EPIC Care Team (unrecognized sect ion and content) Team Status: Active Member Role Status Marcy Amaya MD Primary Care Provider Active Team Status: Inactive Member Role Status Marcy Amaya MD Primary Care Provider Active Start: November 13, 2023 End: November 13, 2023 Bertin Velez MD Attending Provider Active Sta rt: November 13, 2023 End: November 13, 2023 Team Status: Active Member Role Status Marcy Amaya MD Primary Care Provider Active Start: November 28, 2023 Bertin Velez MD Attending Provider Active Sta rt: November 28, 2023 Team Status: Inactive Member Role Status Marcy Amaya MD Primary Care Provider Active Start: February 01, 2024 End: February 01, 2024 Bertin Velez MD Attending Provider Active Sta rt: February 01, 2024 End: February 01, 2024 Team Status: Inactive Member Role Status Marcy Amaya MD Primary Care Provider Active Start: March 18, 2024 End: March 18, 2024 Bertin Velez MD Attending Provider Active Sta rt: March 18, 2024 End: March 18, 2024 Team Status: Inactive Member Role Status Marcy Amaya MD Primary Care Provider Active Start: March 31, 2024 End: March 31, 2024 Bertin Velez MD Attending Provider Active Sta rt: March 31, 2024 End: March 31, 2024 Team Status: Active Member Role Status Marcy Amaya MD Primary Care Provider Active Start: March 31, 2024 Bertin Velez MD Attending Provider Active Sta rt: March 31, 2024 Team Status: Inactive Member Role Status Marcy Amaya MD Primary Care Provider Active Start: April 17, 2024 End: April 17, 2024 Bertin Velez MD Attending Provider Active Sta rt: April 17, 2024 End: April 17, 2024 REASON FOR VISIT (unrecogniz ed section and [...] BE BASED ON THE PRIMARY CLINICAL RECORDS. [employer] provides no warranty or guarantee of the accuracy or completeness of information in this document.
[2024-05-02 12:57] LABS: Basophils Percent Auto 0.4 % (0.2-2.0); Eosinophils Absolute Auto 0.1 10^3/uL (0.0-0.7); Eosinophils Percent Auto 1.4 % (0.9-7.0); Hematocrit 43.7 % (36.0-48.0); Hemoglobin 14.3 g/dL (12.0-16.0); Immature Granulocytes Abs Auto 0.03 10^3/uL (0.00-0.03); Immature Granulocytes Pct Auto 0.3 % (0.0-0.5); Lymphocytes Absolute Auto 2.2 10^3/uL (1.2-3.8); Lymphocytes Percent Auto 22.5 % (20.5-60.0); Mean Corpuscular HGB Conc 32.7 g/dL (29.9-35.2); Mean Corpuscular Hemoglobin 27.1 pg (26.7-34.0); Mean Corpuscular Volume 82.8 fL (81.0-99.0); Mean Platelet Volume 11.5 fL (9.5-13.5); Monocytes Absolute Auto 0.4 10^3/uL (0.3-0.8); Monocytes Percent Auto 4.1 % (1.7-12.0); Neutrophils Absolute Auto 6.9 10^3/uL (1.4-6.5); Neutrophils Percent Auto 71.3 % (43.0-75.0); Platelet Count 274 10^3/uL (150-450); Red Blood Count 5.28 10^6/uL (4.20-5.40); White Blood Count 9.7 10^3/uL (4.0-11.0)
[2024-05-02 13:04] LABS: Estimated Average Glucose 108 mg/dL; Glycohemoglobin A1C 5.4 % (4.5-6.2)
[2024-05-02 13:20] LABS: Alanine Aminotransferase 22 U/L (14-59); Albumin Level 3.5 g/dL (3.4-5.0); Alkaline Phosphatase 96 U/L (46-116); Aspartate Amino Transferase 16 U/L (15-37); BUN Creatinine Ratio 11.8; Bilirubin Total 0.3 mg/dL (0.2-1.0); Calcium 9.6 mg/dL (8.5-10.1); Carbon Dioxide 27.1 mmol/L (21.0-32.0); Chloride 101 mmol/L (98-107); Chol HDL Ratio 4.2; Cholesterol 279 mg/dL (<=200); Estimated GFR (African America >60 (>=60 mL/min/1.73m^2); Estimated GFR (Non-African Ame >60 (>=60 mL/min/1.73m^2); Free T3 3.72 pg/mL (2.18-3.98); Globulin 3.6 g/dL; Glucose 95 mg/dL (74-106); HDL Cholesterol 66 mg/dL (40-60); Potassium 3.1 mmol/L (3.5-5.1); Sodium 137 mmol/L (136-145); Thyroid Stimulating Hormone <0.007 uIU/mL (0.358-3.740); Total Protein 7.1 g/dL (6.4-8.2); Triglycerides 231 mg/dL (<=150); VLDL CHOLESTEROL 46.2 mg/dL
== END 2024-05-02 12:16 | disposition home or self-care (01) ==
LOC: LAB 12:19
PROVIDERS: PCP Family Medicine; Visit Provider Family Medicine
DX: R09.81 Nasal congestion (principal); J01.90 Acute sinusitis, unspecified; E78.5 Hyperlipidemia, unspecified; R53.83 Other fatigue; R73.09 Other abnormal glucose; I10 Essential (primary) hypertension; D64.9 Anemia, unspecified; E03.9 Hypothyroidism, unspecified
CPT/HCPCS: 36415; 80053; 80061; 83036; 83540; 84436; 84443; 84481; 85025